=== PATIENT | female | born 1955 | race Caucasian/White ===

== ENCOUNTER 2024-05-27 22:41 | Emergency (ER) | payer MEDICARE, SELFPAY ==
[2024-05-27] VITALS (8 sets, daily range): BP systolic 171–201; BP diastolic 87–112; PULSE 61–77; RESP 18; TEMP 36.6; O2SAT 94–100; BMI 28.7
--- NOTE | 2024-05-27 22:46 | CT_ITS ---
PROCEDURE INFORMATION: Exam: CT Head Without Contrast Exam date and time: 05/27/2024 11:28 PM Age: 69 years old Clinical indication: Other: Tingling lt arm; Additional info: L arm tingling, now resolved, nih 0 no CVA HX TECHNIQUE: Imaging protocol: Computed tomography of the head without contrast. Radiation optimization: All CT scans at this facility use at least one of these dose optimization techniques: automated exposure control; mA and/or kV adjustment per patient size (includes targeted exams where dose is matched to clinical indication); or iterative reconstruction. COMPARISON: No relevant prior studies available. FINDINGS: Brain: Normal. No hemorrhage. Unremarkable white matter. No mass effect. Cerebral ventricles: No ventriculomegaly. Paranasal sinuses: Visualized sinuses are unremarkable. No fluid levels. Mastoid air cells: Visualized mastoid air cells are well aerated. Bones: Unremarkable. No acute fracture. Soft tissues: Unremarkable. IMPRESSION: No acute intracranial abnormality.
--- NOTE | 2024-05-27 22:46 | CT_ITS ---
PROCEDURE INFORMATION: Exam: CTA Head With Contrast, Arteriography Exam date and time: 05/27/2024 11:32 PM Age: 69 years old Clinical indication: Other: Lt arm tingling; Additional info: L arm tingling, now resolved, nih0 no CVA HX TECHNIQUE: Imaging protocol: Computed tomographic angiography of the head with contrast. Exam focused on the arteries. 3D rendering (Not supervised by radiologist): MIP and/or 3D reconstructed images were created by the technologist. Radiation optimization: All CT scans at this facility use at least one of these dose optimization techniques: automated exposure control; mA and/or kV adjustment per patient size (includes targeted exams where dose is matched to clinical indication); or iterative reconstruction. Contrast material: ISOVUE; Contrast volume: 80 ml; Contrast route: INTRAVENOUS (IV); COMPARISON: CT HEAD/BRAIN WO CON 05/27/2024 11:28 PM FINDINGS: ANTERIOR CIRCULATION: Right internal carotid artery: Intracranial segment is patent with no significant stenosis. No aneurysm. Right middle cerebral artery: No occlusion or significant stenosis. No aneurysm. Right anterior cerebral artery: No occlusion or significant stenosis. No aneurysm. Left internal carotid artery: Intracranial segment is patent with no significant stenosis. No aneurysm. Left middle cerebral artery: No occlusion or significant stenosis. No aneurysm. Left anterior cerebral artery: No occlusion or significant stenosis. No aneurysm. POSTERIOR CIRCULATION: Right vertebral artery: No occlusion or significant stenosis. No aneurysm. Left vertebral artery: No occlusion or significant stenosis. No aneurysm. Basilar artery: No occlusion or significant stenosis. No aneurysm. Right posterior cerebral artery: No occlusion or significant stenosis. No aneurysm. Left posterior cerebral artery: No occlusion or significant stenosis. No aneurysm. Brain: No definite mass, mass effect, or midline shift. Cerebral ventricles: No ventriculomegaly. Bones/joints: Unremarkable. No acute fracture. Soft tissues: Unremarkable. IMPRESSION: No large vessel stenosis or occlusion.
--- NOTE | 2024-05-27 22:46 | XR_ITS ---
PROCEDURE INFORMATION: Exam: XR Chest Exam date and time: 05/27/2024 11:29 PM Age: 69 years old Clinical indication: Other: Lt arm tingling; Additional info: L arm tingling, now resolved TECHNIQUE: Imaging protocol: Radiologic exam of the chest. Views: 1 view. COMPARISON: [facility] CTA-CHEST 06/19/2017 11:33 PM FINDINGS: Lungs: Unremarkable. No consolidation. Pleural spaces: Unremarkable. No pleural effusion. No pneumothorax. Heart/Mediastinum: Unremarkable. No cardiomegaly. Bones/joints: Mild degenerative changes of the spine and shoulders. No acute fracture. IMPRESSION: No acute disease
--- NOTE | 2024-05-27 22:46 | CT_ITS ---
PROCEDURE INFORMATION: Exam: CTA Neck With Contrast Exam date and time: 05/27/2024 11:32 PM Age: 69 years old Clinical indication: Other: Lt arm tingling; Additional info: L arm tingling nih 0 no CVA HX TECHNIQUE: Imaging protocol: Computed tomographic angiography of the neck with contrast. Exam focused on the cervical segments of the vasculature. 3D rendering (Not supervised by radiologist): MIP and/or 3D reconstructed images were created by the technologist. Radiation optimization: All CT scans at this facility use at least one of these dose optimization techniques: automated exposure control; mA and/or kV adjustment per patient size (includes targeted exams where dose is matched to clinical indication); or iterative reconstruction. Contrast material: ISOVUE; Contrast volume: 80 ml; Contrast route: INTRAVENOUS (IV); COMPARISON: CT ANGIO HEAD 05/27/2024 11:32 PM FINDINGS: Right common carotid artery: No stenosis. No dissection or occlusion. Right internal carotid artery: No stenosis of the extracranial segment. No dissection or occlusion. Right external carotid artery: No occlusion or stenosis of the origin. Left common carotid artery: No stenosis. No dissection or occlusion. Left internal carotid artery: No stenosis of the extracranial segment. No dissection or occlusion. Left external carotid artery: No occlusion or stenosis of the origin. Right vertebral artery: No stenosis. No dissection or occlusion. Left vertebral artery: No stenosis. No dissection or occlusion. Soft tissues: Normal. No significant soft tissue swelling. Bones/joints: No acute fracture. Mild multilevel degenerative changes noted throughout the cervical spine IMPRESSION: No stenosis or occlusion. REFERENCES: NASCET CRITERIA. The degree of stenosis in the cervical segment of the internal carotid artery is based on NASCET criteria. Normal is no stenosis. Mild is less than 50% stenosis. Moderate is 50-69% stenosis. Severe is 70% to 99% stenosis. Total occlusion is no detectable patent lumen.
--- NOTE | 2024-05-27 22:46 | ECG_ITS ---
APPROVED REPORT Exam: Resting ECG HR:67 bpm ECG Measurements Heart Rate 67 AXES TX 174 P 76 QRSd 84 QRS 71 QT 408 T 85 QTc 423 Conclusion SINUS RHYTHM NORMAL ECG Electronically signed by : BERNABE PORRAS, 05/27/2024 23:10:53
[2024-05-27 22:56] LABS: Basophils # 0.1 K/mm3 (0-0.2); Basophils % 1.3 % (0.1-2.0); Eosinophils # 0.3 K/mm3 (0.0-0.4); Eosinophils % 3.1 % (0.1-12.0); Hematocrit 43.6 % (37.0-47.0); Hemoglobin 14.4 g/dL (12.2-16.2); Lymphocytes # 2.6 K/mm3 (0.7-4.5); Mean Corpuscular Hemoglobin 30.9 pg (27.0-31.2); Mean Corpuscular Volume 93.6 fl (81-99); Mean Platelet Volume 8.4 fl (7.4-10.4); Monocytes # 0.4 K/mm3 (0.1-1.0); Monocytes % 5.2 % (1.7-9.3); Neutrophils % 59.4 % (37.0-80.0); Platelet Count 307 K/mm3 (142-424); Red Blood Count 4.65 M/mm3 (4.20-5.40); White Blood Count 8.4 K/mm3 (4.8-10.8)
[2024-05-27] MEDS: PROCHLORPERAZINE 10MG/2ML VIAL 10 MG IV (22:56)
[2024-05-27] MEDS: ACETAMINOPHEN 500MG TAB 1000 MG PO (22:56)
[2024-05-27] MEDS: DEXAMETHASONE 4MG/ML 1ML VIAL 8 MG IV (22:57)
[2024-05-27] MEDS: diphenhydrAMINE 50MG/ML VIAL 25 MG IV (22:57)
--- NOTE | 2024-05-27 22:59 | ED_ITS ---
Discharge Plan Disposition Patient Disposition: Xfer Short-Term Hosp Chief Complaint: Headache Referrals Follow up/Referrals: Provider,Referral, [Primary Care Provider] - See instructions Activity Restrictions/Add. Instructions Additional Instructions/Restrictions: Go directly to [facility], she will register through the ER as a direct admission to Dr. Ozuna. Do not make any stops along the way. Clinical Impressions Clinical Impression: Headache, Paresthesia of left arm, TIA (transient ischemic attack) Print Language Print Language: Romanian Discharge ED Provider: Narciso Quiroz General Adult HPI <Gretchen Ordoñez MD - Last Filed: 05/27/24 23:09> General Chief complaint: Headache Stated complaint: Left Sided Numbness and headache Time Seen by Provider: 05/27/24 22:46 Mode of Arrival: EMS Source of Information: Patient and EMS Limitations: No Limitations Description of Symptoms (Recalled from ER Triage Doc. by RN): Patient complains of headache and htn; states she had left arm numbness but it has subsided. Per MD NIH is 0 History of Present Illness HPI narrative: Patient is a 69-year-old female with past medical history hypertension for which she does not take any medications presenting with hypertension, headache and left arm numbness/tingling. She states that she was at her dinner table tonight reading and she had sudden onset left arm numbness and tingling. This lasted for about 5 minutes after which time it completely resolved. She denies any prior history of similar symptoms, no history of CVA or cardiac issues. She did call EMS who reports she was hemodynamically stable, no deficits noted by them but is hypertensive with systolics in the 200s. Blood glucose was 120 per EMS. Patient denies any chest pain, abdominal pain, nausea, vomiting, fevers, chills. She does not take any blood thinning medications but she did take aspirin earlier today for a headache. She has had this headache for 4 days and is not her worst headache, was gradual in onset, is in the posterior left head and she does have a history of migraines and this is consistent with her prior headaches. Related Data Allergies Allergy/AdvReac Type Severity Reaction Status Date / Time miconazole [From MONISTAT 7] Allergy Mild Unknown Verified 05/27/24 22:56 allergy reaction PFSH <Gretchen Ordoñez MD - Last Filed: 05/27/24 23:09> [facility] Disclaimer: The information contained in this section may have been updated after the patient was seen, as this information can be updated by other users. Social History (Updated 05/27/24 @ 23:09 by Gretchen Ordoñez MD) Smoking Status: Current every day smoker alcohol intake: never current occupational status: retired Travel in the last 8 weeks: None <Gretchen Ordoñez MD - Last Filed: 05/27/24 23:09> ROS Obtained: Yes Systems reviewed as appropriate & no additional complaints except as documented Physical Exam <Gretchen Ordoñez MD - Last Filed: 05/27/24 23:09> General General appearance: alert and in no apparent distress Head Head exam: atraumatic and normocephalic Eye Eye exam: Present PERRL and EOMI ENT ENT exam: Present mucous membranes moist Neck Neck exam: Present normal inspection Chest Chest inspection: Present normal inspection and symmetric chest wall rise Respiratory Respiratory exam: Present normal lung sounds bilaterally; Absent respiratory distress Cardiovascular Cardiovascular exam: Present regular rate and normal rhythm Abdominal Exam Abdominal exam: Present soft; Absent tenderness Extremities Exam Extremities exam: Present normal inspection Neurological Exam Neurological exam: Present alert, oriented X3, CN II-XII intact and other (Strength and sensation intact bilateral upper and lower extremities and bilateral face, alert and oriented, face is symmetric with equal smile, able to stick out tongue, raise eyebrows, close eyes, identify objects); Absent motor sensory deficit Psychiatric Psychiatric exam: Present normal affect Skin Skin exam: Present warm and dry Medical Decision Making <Gretchen Ordoñez MD - Last Filed: 05/27/24 23:09> Medical Records Medical records reviewed: Yes I reviewed the patient's medical records. Screening: Per USPSTF and CDC recommendations, given the prevalence of disease in our region, it is our hospital?s policy to screen for HIV and viral Hepatitis for all patients aged 18 and over and those with ongoing risk factors. Jg Inquiry Pt receiving controlled substance: No Vital Signs: 05/27/24 22:42 05/27/24 22:49 05/27/24 23:00 Temperature 97.9 F Temperature Source Oral Pulse Rate 71 72 Pulse Rate [Right Radial] 77 Respiratory Rate 18 Blood Pressure 181/92 H Blood Pressure [Right Arm] 201/112 H Blood Pressure Mean [Right Arm] 141 Blood Pressure Source Blood Pressure Source [Right Arm] Automatic Cuff Blood Pressure Position Blood Pressure Position [Right Arm] Supine 02 Sat by Pulse Oximetry 100 97 95 Oxygen Delivery Method Room Air 05/27/24 23:37 05/27/24 23:45 05/27/24 23:51 Temperature Temperature Source Pulse Rate 77 71 70 Pulse Rate [Right Radial] Respiratory Rate Blood Pressure 185/90 H Blood Pressure [Right Arm] Blood Pressure Mean [Right Arm] Blood Pressure Source Blood Pressure Source [Right Arm] Blood Pressure Position Blood Pressure Position [Right Arm] 02 Sat by Pulse Oximetry 95 96 94 L Oxygen Delivery Method 05/27/24 23:52 05/27/24 23:59 05/28/24 00:00 Temperature Temperature Source Pulse Rate 69 61 61 Pulse Rate [Right Radial] Respiratory Rate Blood Pressure 185/90 H 171/87 H 116/94 H Blood Pressure [Right Arm] Blood Pressure Mean [Right Arm] Blood Pressure Source Manual Cuff/ Doppler Blood Pressure Source [Right Arm] Blood Pressure Position Sitting Blood Pressure Position [Right Arm] 02 Sat by Pulse Oximetry 94 L 92 L Oxygen Delivery Method 05/28/24 00:30 05/28/24 00:40 Temperature Temperature Source Pulse Rate 67 65 Pulse Rate [Right Radial] Respiratory Rate Blood Pressure 175/83 H 175/83 H Blood Pressure [Right Arm] Blood Pressure Mean [Right Arm] Blood Pressure Source Automatic Cuff Blood Pressure Source [Right Arm] Blood Pressure Position Sitting Blood Pressure Position [Right Arm] 02 Sat by Pulse Oximetry 92 L 96 Oxygen Delivery Method Room Air Lab Data Lab results reviewed: Yes I reviewed the patient's lab results. Lab Results 05/27/24 22:42: WBC 8.4, RBC 4.65, Hgb 14.4, Hct 43.6, MCV 93.6, MCH 30.9, MCHC 33.0, RDW 15.0, Plt Count 307, MPV 8.4, Neut % (Auto) 59.4, Lymph % (Auto) 31.0, [place] % (Auto) 5.2, Eos % (Auto) 3.1, Baso % (Auto) 1.3, Neut # (Auto) 5.0, Lymph # (Auto) 2.6, [place] # (Auto) 0.4, Eos # (Auto) 0.3, Baso # (Auto) 0.1, PT 9.8 L, INR 0.86 L, APTT 24.4, Sodium 141, Potassium 4.0, Chloride 112 H, Carbon Dioxide 23, Anion Gap 10.0, BUN 16, Creatinine 1.00, Estimated Creat Clear 62, Estimated GFR 55 L, Est GFR ( Amer) 67, Glucose 103 H, Calcium 9.3, Total Bilirubin 0.7, AST 23, ALT 14, Alkaline Phosphatase 100, Troponin I < 0.01, Total Protein 7.6, Albumin 4.5, Globulin 3.1, Albumin/Globulin Ratio 1.5 05/27/24 22:42 05/27/24 22:42 Orders (Tests/Meds): ED MEDICATIONS Generic Name Dose Route Start Last Admin Trade Name Freq PRN Reason Stop Dose Admin Sodium Chloride 10 ml 05/27/24 23:40 05/27/24 23:41 Sodium Chloride 0.9% 10ml Syr (Rad Only) IV 06/26/24 23:39 10 ml NEEDED PRN Administration Maintain IV Site Discontinued Medications Generic Name Dose Route Start Last Admin Trade Name Freq PRN Reason Stop Dose Admin Acetaminophen 1,000 mg 05/27/24 22:46 05/27/24 22:56 Acetaminophen 500mg Tab PO 05/27/24 22:47 1,000 mg ONCE ONE Administration Aspirin 81 mg 05/28/24 00:58 05/28/24 01:10 Aspirin Ec 81mg Tablet PO 05/28/24 00:59 81 mg ONCE ONE Administration Clopidogrel Bisulfate 300 mg 05/28/24 00:58 05/28/24 01:09 Clopidogrel 300mg Tablet PO 05/28/24 00:59 300 mg ONCE ONE Administration Dexamethasone Sodium Phosphate 8 mg 05/27/24 22:46 05/27/24 22:57 Dexamethasone 4mg/Ml 1ml Vial IV 05/27/24 22:47 8 mg ONCE ONE Administration Diphenhydramine HCl 25 mg 05/27/24 22:46 05/27/24 22:57 Diphenhydramine 50mg/Ml Vial IV 05/27/24 22:47 25 mg ONCE ONE Administration Iopamidol 80 ml 05/27/24 23:40 05/27/24 23:41 Iopamidol-370 (76%);100ml Bottle IV 05/27/24 23:41 80 ml ONCE ONE Administration Labetalol HCl 10 mg 05/27/24 23:24 05/27/24 23:54 Labetalol 20mg/4ml Syringe IV 05/27/24 23:25 10 mg ONCE ONE Administration Prochlorperazine Edisylate 10 mg 05/27/24 22:46 05/27/24 22:56 Prochlorperazine 10mg/2ml Vial IV 05/27/24 22:47 10 mg ONCE ONE Administration Sodium Chloride 50 ml 05/27/24 23:40 05/27/24 23:41 0.9 % Sodium Chloride 50 Ml Vial IV 05/27/24 23:41 50 ml ONCE ONE Administration ORDERS Category Date Time Status CT angio head Stat Cat Scan 05/27/24 22:[address] angio neck Stat Cat Scan 05/27/24 22:[address] head/brain wo con Stat Cat Scan 05/27/24 22:46 Completed XR chest portable Stat Exams 05/27/24 22:46 Completed Activated Partial Thrombo Time Stat Lab 05/27/24 22:42 Completed Complete Blood Count Auto Diff Stat Lab 05/27/24 22:42 Completed Comprehensive Metabolic Panel Stat Lab 05/27/24 22:42 Completed HIV (1&2) Antibody Rapid Stat Lab 05/27/24 22:47 Received Hep C Ab with Reflex to RNA Stat Lab 05/27/24 22:47 Received Prothrombin Time INR Stat Lab 05/27/24 22:42 Completed Troponin I Stat Lab 05/27/24 22:42 Ordered ECG Data Tracing #1: I reviewed this ECG and interpreted as documented below: Per my interpretation EKG shows sinus rhythm at a rate of 67, normal intervals, no acute ischemia or infarction ECG initial impression date: 05/27/24 ECG initial impression time: 22:56 Medical Decision Narrative: Patient is a 69-year-old female with past medical history hypertension for which she does not take any medications presenting with left arm numbness and tingling onset prior to arrival lasting around 5 minutes in duration before completely subsiding. She was hypertensive en route for EMS to 200 systolic and blood glucose is within normal limits on arrival. She has no CVA history and is not on any blood thinning medications. Additionally no cardiac history. She did take aspirin earlier in the day for her headache symptoms but still does note a headache 4 out of 10, not worst headache of her life. She is GCS 15, NIH 0 on arrival. She is hypertensive to 200 systolic on arrival but otherwise hemodynamically stable. Will obtain labs and imaging for further evaluation. Notably recheck after 5 minutes patient's blood pressure was 181/92 without medication intervention and we will therefore defer given patient is naturally decreasing to desired 20%. EKG without acute ischemia or infarction, CBC nonactionable. Additional labs and CT imaging was ordered given concern for possible TIA symptoms versus cardiac etiology versus metabolic versus complicated migraine. Will give patient Tylenol, Benadryl, Compazine, Decadron for headache symptoms and restive labs and admitting pending and care of patient transition to Dr. Quiroz at time of signout <Narciso Quiroz MD - Last Filed: 05/28/24 01:39> Vital Signs: 05/27/24 22:42 05/27/24 22:49 05/27/24 23:00 Temperature 97.9 F Temperature Source Oral Pulse Rate 71 72 Pulse Rate [Right Radial] 77 Respiratory Rate 18 Blood Pressure 181/92 H Blood Pressure [Right Arm] 201/112 H Blood Pressure Mean [Right Arm] 141 Blood Pressure Source Blood Pressure Source [Right Arm] Automatic Cuff Blood Pressure Position Blood Pressure Position [Right Arm] Supine 02 Sat by Pulse Oximetry 100 97 95 Oxygen Delivery Method Room Air 05/27/24 23:37 05/27/24 23:45 05/27/24 23:51 Temperature Temperature Source Pulse Rate 77 71 70 Pulse Rate [Right Radial] Respiratory Rate Blood Pressure 185/90 H Blood Pressure [Right Arm] Blood Pressure Mean [Right Arm] Blood Pressure Source Blood Pressure Source [Right Arm] Blood Pressure Position Blood Pressure Position [Right Arm] 02 Sat by Pulse Oximetry 95 96 94 L Oxygen Delivery Method 05/27/24 23:52 05/27/24 23:59 05/28/24 00:00 Temperature Temperature Source Pulse Rate 69 61 61 Pulse Rate [Right Radial] Respiratory Rate Blood Pressure 185/90 H 171/87 H 116/94 H Blood Pressure [Right Arm] Blood Pressure Mean [Right Arm] Blood Pressure Source Manual Cuff/ Doppler Blood Pressure Source [Right Arm] Blood Pressure Position Sitting Blood Pressure Position [Right Arm] 02 Sat by Pulse Oximetry 94 L 92 L Oxygen Delivery Method 05/28/24 00:30 05/28/24 00:40 Temperature Temperature Source Pulse Rate 67 65 Pulse Rate [Right Radial] Respiratory Rate Blood Pressure 175/83 H 175/83 H Blood Pressure [Right Arm] Blood Pressure Mean [Right Arm] Blood Pressure Source Automatic Cuff Blood Pressure Source [Right Arm] Blood Pressure Position Sitting Blood Pressure Position [Right Arm] 02 Sat by Pulse Oximetry 92 L 96 Oxygen Delivery Method Room Air Lab Data Lab Results 05/27/24 22:42: WBC 8.4, RBC 4.65, Hgb 14.4, Hct 43.6, MCV 93.6, MCH 30.9, MCHC 33.0, RDW 15.0, Plt Count 307, MPV 8.4, Neut % (Auto) 59.4, Lymph % (Auto) 31.0, [place] % (Auto) 5.2, Eos % (Auto) 3.1, Baso % (Auto) 1.3, Neut # (Auto) 5.0, Lymph # (Auto) 2.6, [place] # (Auto) 0.4, Eos # (Auto) 0.3, Baso # (Auto) 0.1, PT 9.8 L, INR 0.86 L, APTT 24.4, Sodium 141, Potassium 4.0, Chloride 112 H, Carbon Dioxide 23, Anion Gap 10.0, BUN 16, Creatinine 1.00, Estimated Creat Clear 62, Estimated GFR 55 L, Est GFR ( Amer) 67, Glucose 103 H, Calcium 9.3, Total Bilirubin 0.7, AST 23, ALT 14, Alkaline Phosphatase 100, Troponin I < 0.01, Total Protein 7.6, Albumin 4.5, Globulin 3.1, Albumin/Globulin Ratio 1.5 Orders (Tests/Meds): ED MEDICATIONS Generic Name Dose Route Start Last Admin Trade Name Freq PRN Reason Stop Dose Admin Sodium Chloride 10 ml 05/27/24 23:40 05/27/24 23:41 Sodium Chloride 0.9% 10ml Syr (Rad Only) IV 06/26/24 23:39 10 ml NEEDED PRN Administration Maintain IV Site Discontinued Medications Generic Name Dose Route Start Last Admin Trade Name Freq PRN Reason Stop Dose Admin Acetaminophen 1,000 mg 05/27/24 22:46 05/27/24 22:56 Acetaminophen 500mg Tab PO 05/27/24 22:47 1,000 mg ONCE ONE Administration Aspirin 81 mg 05/28/24 00:58 05/28/24 01:10 Aspirin Ec 81mg Tablet PO 05/28/24 00:59 81 mg ONCE ONE Administration Clopidogrel Bisulfate 300 mg 05/28/24 00:58 05/28/24 01:09 Clopidogrel 300mg Tablet PO 05/28/24 00:59 300 mg ONCE ONE Administration Dexamethasone Sodium Phosphate 8 mg 05/27/24 22:46 05/27/24 22:57 Dexamethasone 4mg/Ml 1ml Vial IV 05/27/24 22:47 8 mg ONCE ONE Administration Diphenhydramine HCl 25 mg 05/27/24 22:46 05/27/24 22:57 Diphenhydramine 50mg/Ml Vial IV 05/27/24 22:47 25 mg ONCE ONE Administration Iopamidol 80 ml 05/27/24 23:40 05/27/24 23:41 Iopamidol-370 (76%);100ml Bottle IV 05/27/24 23:41 80 ml ONCE ONE Administration Labetalol HCl 10 mg 05/27/24 23:24 05/27/24 23:54 Labetalol 20mg/4ml Syringe IV 05/27/24 23:25 10 mg ONCE ONE Administration Prochlorperazine Edisylate 10 mg 05/27/24 22:46 05/27/24 22:56 Prochlorperazine 10mg/2ml Vial IV 05/27/24 22:47 10 mg ONCE ONE Administration Sodium Chloride 50 ml 05/27/24 23:40 05/27/24 23:41 0.9 % Sodium Chloride 50 Ml Vial IV 05/27/24 23:41 50 ml ONCE ONE Administration ORDERS Category Date Time Status CT angio head Stat Cat Scan 05/27/24 22:[address] angio neck Stat Cat Scan 05/27/24 22:[address] head/brain wo con Stat Cat Scan 05/27/24 22:46 Completed XR chest portable Stat Exams 05/27/24 22:46 Completed Activated Partial Thrombo Time Stat Lab 05/27/24 22:42 Completed Complete Blood Count Auto Diff Stat Lab 05/27/24 22:42 Completed Comprehensive Metabolic Panel Stat Lab 05/27/24 22:42 Completed HIV (1&2) Antibody Rapid Stat Lab 05/27/24 22:47 Received Hep C Ab with Reflex to RNA Stat Lab 05/27/24 22:47 Received Prothrombin Time INR Stat Lab 05/27/24 22:42 Completed Troponin I Stat Lab 05/27/24 22:42 Ordered Medical Decision Narrative: Patient is a 69-year-old female with past medical history hypertension for which she does not take any medications presenting with left arm numbness and tingling onset prior to arrival lasting around 5 minutes in duration before completely subsiding. She was hypertensive en route for EMS to 200 systolic and blood glucose is within normal limits on arrival. She has no CVA history and is not on any blood thinning medications. Additionally no cardiac history. She did take aspirin earlier in the day for her headache symptoms but still does note a headache 4 out of 10, not worst headache of her life. She is GCS 15, NIH 0 on arrival. She is hypertensive to 200 systolic on arrival but otherwise hemodynamically stable. Will obtain labs and imaging for further evaluation. Notably recheck after 5 minutes patient's blood pressure was 181/92 without medication intervention and we will therefore defer given patient is naturally decreasing to desired 20%. EKG without acute ischemia or infarction, CBC nonactionable. Additional labs and CT imaging was ordered given concern for possible TIA symptoms versus cardiac etiology versus metabolic versus complicated migraine. Will give patient Tylenol, Benadryl, Compazine, Decadron for headache symptoms and restive labs and admitting pending and care of patient transition to Dr. Quiroz at time of signout Quiroz: Upon my assumption of care patient is stable. She is very hypertensive, I administered labetalol for hypertension management because she continued to be in the 180s to 190s. She responded well to this medication. Patient states her symptoms of headache have resolved. CT imaging results are pending but on my personal interpretation I do not appreciate acute intracranial abnormality, no large vessel occlusion. Radiology reads resulted and are in agreement. I do have concerns for patient having TIA. She has not seen a doctor in nearly a decade and has been very hypertensive in the ER. It is possible that this is an atypical migraine, however her ABCD 2 score is 4 which is moderate risk and patient has 10% chance of stroke in the next 90 days. I discussed this patient with the hospitalist who indicated she cannot be admitted to our facility at this time for MRI because we do not have MRI available over the weekend. I discussed this with the patient indicating I would like to have the patient transferred for MRI and neurology evaluation. Patient states she refuses transfer at this time, she is able to explain to me the risks including but not limited to possibility of having a stroke which could cause permanent disability or . Since patient would like to be discharged, I am going to consult neurology at another facility for close outpatient follow-up. [facility] was contacted. Initially they accidentally connected me with the neurosurgeon, we are currently reattempting to get in touch with the neurologist. I spoke with neurology sales and catering coordinator, Laura, at [facility]. After discussing patient's symptoms, workup, and ABCD2 score, she recommends transfer to [facility] [place] for TIA workup including MRI and Echo. She strongly recommends this and stated if patient will not transfer to have her sign out AMA. She did recommend permissive HTN with blood pressure as high as 220 as long as patient remains asymptomtic, ASA 81mg and 300mg loading dose of Plavix. Patient received these medications. I discussed recommendations with patient and her son at bedside. After long discussion with patient and son, she ultimately agreed to be transferred. I called [facility] [place] back and notified them of this change. I spoke with Laura and Dr. Ozuna. Ultimately after full discussion, patient is accepted for direct admission to the hospitalist service on telemetry. We have extremely limited resources at this time for transportation. I discussed with Dr. Ozuna that patient is within the recommended hemodynamic parameters from neurology, hemodynamically stable, GCS 15, completely asymptomatic at this time from any of the complaints which brought her in earlier. He stated he is okay with patient coming by private vehicle. Patient's son Keenan at bedside stated he will be the one driving the patient directly from our ER to [facility]. He understands he is not to make any stops along the way and is to go directly there. I believe given the circumstances patient is appropriate for transfer via POV. Patient's IV was removed. All instructions were again repeated to the patient and her son, Keenan. Patient was transferred in stable condition. Critical Care <Gretchen Ordoñez MD - Last Filed: 05/27/24 23:09> Critical Care Time Critical Care Time: No
[2024-05-27 23:03] LABS: Alanine Aminotransferase 14 U/L (12-78); Albumin Level 4.5 g/dl (3.5-5.0); Albumin/Globulin Ratio 1.5 (1.1-1.8); Alkaline Phosphatase 100 U/L (38-126); Aspartate Amino Transferase 23 U/L (14-36); Bilirubin,Total 0.7 mg/dl (0.2-1.3); Blood Urea Nitrogen 16 mg/dl (7-17); Calcium 9.3 mg/dl (8.4-10.2); Carbon Dioxide 23 mmol/L (22.0-30.0); Chloride 112 mmol/L (98-107); Creatinine Clearance Estimated 62 mL/min (50-200); Estimated Glomerular Filt Rate 55 ml/min (>60); GFR (African American) 67 ML/MIN (>60); Globulin 3.1 g/dL (1.3-3.2); Glucose 103 mg/dl (74-100); Sodium 141 mmol/L (136-145); Total Protein,Serum 7.6 g/dl (6.3-8.2)
[2024-05-27 23:05] LABS: Activated Partial Thrombo Time 24.4 seconds (22.8-30.6); INR 0.86 (0.9-1.1); Prothrombin Time 9.8 seconds (10.1-12.5)
[2024-05-27 23:17] LABS: Troponin I < 0.01 ng/ml (0.00-0.034)
--- NOTE | 2024-05-27 23:23 | PC.NURSE ---
patient to CT
[2024-05-27] MEDS: SODIUM CHLORIDE 0.9% 10ML SYR (RAD ONLY) 10 ML IV (23:41)
[2024-05-27] MEDS: IOPAMIDOL-370 (76%);100ML BOTTLE 80 ML IV (23:41)
[2024-05-27] MEDS: 0.9 % SODIUM CHLORIDE 50 ML VIAL IV (23:41)
[2024-05-27] MEDS: LABETALOL 20MG/4ML SYRINGE 10 MG IV (23:54)
[2024-05-28] VITALS: BP 116/94; PULSE 61; O2SAT 92
--- NOTE | 2024-05-28 00:29 | PC.NURSE ---
ED doctor on phone with Dr. Black
[2024-05-28 00:30] VITALS: BP 175/83; PULSE 67; O2SAT 92
[2024-05-28 00:40] VITALS: BP 175/83; PULSE 65; O2SAT 96
[2024-05-28 00:45] VITALS: PULSE 69; O2SAT 96
[2024-05-28] MEDS: CLOPIDOGREL 300MG TABLET 300 MG PO (01:09)
[2024-05-28] MEDS: ASPIRIN EC 81MG TABLET 81 MG PO (01:10)
[2024-05-28 02:15] VITALS: BP 178/111; PULSE 73; O2SAT 93
[2024-05-28 02:22] LABS: HIV (1&2) Antibody Rapid NONREACTIVE (NONREACTIVE)
[2024-05-28 02:29] VITALS: BP 178/111; PULSE 80; RESP 18; TEMP 36.6; O2SAT 98
[2024-05-30 05:10] LABS: HCV Ab Non Reactive (Non Reactive)
== END 2024-05-28 02:32 | disposition short-term general hospital (02) ==
PROVIDERS: Emergency Medicine; Emergency Provider Emergency Medicine
DX: G45.9 Transient cerebral ischemic attack, unspecified (principal); R20.2 Paresthesia of skin; R51.9 Headache, unspecified; I10 Essential (primary) hypertension
CPT/HCPCS: 70450; 70496; 70498; 71045; 80053; 84484; 85025; 85610; 85730; 86803; 87389; 93005; 96374; 96375; 99285; J0780; J1100; J1200; J1920; Q9967

== ENCOUNTER 2024-06-26 10:32 | Emergency (ER) | payer MEDICARE, MEDICAID, SELFPAY ==
[2024-06-26 10:33] VITALS: BP 176/76; PULSE 82; RESP 18; TEMP 36.7; O2SAT 95; BMI 29.4
--- NOTE | 2024-06-26 10:50 | ECG_ITS ---
APPROVED REPORT Exam: Resting ECG HR:76 bpm ECG Measurements Heart Rate 76 AXES DE 182 P 83 QRSd 88 QRS 40 QT 373 T 75 QTc 403 Conclusion SINUS RHYTHM WITH SINUS ARRHYTHMIA NONSPECIFIC T-WAVE ABNORMALITY BORDERLINE ECG UNCONFIRMED REPORT Electronically signed by : Brant Romeo, 06/30/2024 23:25:01
[2024-06-26 11:00] VITALS: BP 173/91; PULSE 78; O2SAT 94
--- NOTE | 2024-06-26 11:08 | ED_ITS ---
Discharge Plan Disposition Patient Disposition: Home, Self-Care Prescriptions Prescriptions: No Action aspirin [Children's Aspirin] 81 mg tablet,chewable 81 mg PO DAILY Patient Comments: CHEW AND SWALLOW 1 TABLET BY MOUTH ONCE DAILY magnesium oxide 400 mg (241.3 mg magnesium) tablet 400 mg PO HS Patient Comments: TAKE 1 TABLET BY MOUTH ONCE DAILY AT NIGHT amlodipine 5 mg tablet 5 mg PO DAILY Patient Comments: TAKE 1 TABLET BY MOUTH ONCE DAILY atorvastatin 80 mg tablet 80 mg PO HS Patient Comments: TAKE 1 TABLET BY MOUTH ONCE DAILY AT NIGHT riboflavin (vitamin B2) 400 mg tablet 400 mg PO DAILY Referrals Follow up/Referrals: Provider,Referral, MD [Primary Care Provider] - See instructions Activity Restrictions/Add. Instructions Additional Instructions/Restrictions: As discussed your serial neurologic exam specifically from a sensory standpoint were normal even in the midst of one of the episodes that you had. This included position temperature and light touch and pain in the median ulnar radial and axillary distribution. Your blood vessels were also normal all of this suggest that this is not a neurovascular emergency. Given the fact that you had symptoms radiating from your neck down through your arm and symptoms that I would call paresthesias I suggest to get a cervical MRI as this is likely cervical radiculopathy. Also given the fact that she had extensive restratification at [facility] recently further TIA evaluation at this point would not be helpful or additive. Please continue to take your medications prescribed by them and return with any true sensory loss or motor weakness such as paralysis of your arm. Otherwise recommend you follow-up with neurology with [facility] as well as your primary care doctor. Clinical Impressions Clinical Impression: Paresthesia of left arm Print Language Print Language: Libyan Discharge ED Provider: Kaitlin Romeo General Adult HPI General Chief complaint: Weakness Stated complaint: Weakness Time Seen by Provider: 06/26/24 10:58 Mode of Arrival: EMS Source of Information: Patient Limitations: No Limitations Description of Symptoms (Recalled from ER Triage Doc. by RN): Patient reports that around 950 am she began to have numbness and tingling in her left hand that began to radiate up her arm. States she has had TIAs in the past and was just concerned that it was happening again. History of Present Illness HPI narrative: Patient is a 69-year-old female presenting today with left arm paresthesias and tingling that radiated upper into her arm. No motor weakness. She states she had a previous episode that was similar to this when she was holding a phone for prolonged period of time ultimately had CT angiography and was sent to [facility] for TIA workup. She had an MRI and an echo and had right further restratification including medications that she was initiated on including blood pressure medication and antiplatelet agents. She follow-up with her primary care doctor who believes that this was not a TIA. She denies any significant neck pain. She currently is asymptomatic. Related Data Home Medications ?Medication ?Instructions ?Recorded ?Confirmed amlodipine 5 mg tablet 5 mg PO DAILY 06/07/24 06/07/24 aspirin 81 mg chewable tablet 81 mg PO DAILY 06/07/24 06/07/24 (Children's Aspirin) atorvastatin 80 mg tablet 80 mg PO HS 06/07/24 06/07/24 magnesium oxide 400 mg (241.3 mg 400 mg PO HS 06/07/24 06/07/24 magnesium) tablet riboflavin (vitamin B2) 400 mg 400 mg PO DAILY 06/07/24 06/07/24 tablet Allergies Allergy/AdvReac Type Severity Reaction Status Date / Time miconazole (From [facility]AT 7) Allergy Mild Unknown Verified 06/07/24 14:00 allergy reaction [facility] Disclaimer: The information contained in this section may have been updated after the patient was seen, as this information can be updated by other users. Medical History (Updated 06/26/24 @ 11:11 by Kaitlin Romeo MD) Low serum vitamin B2 Migraines Low magnesium level Hyperlipidemia Hypertension Surgical History (Updated 06/07/24 @ 14:03 by Gabbie Ramos MA) Tubal ligation status H/O skin graft Social History (Updated 05/27/24 @ 23:09 by Gretchen Ordoñez MD) Smoking Status: Current every day smoker alcohol intake: never current occupational status: retired Other Medical History Have you received the Pneumonia Vaccine: No ROS Obtained: Yes All systems reviewed & no additional complaints except as documented Physical Exam General General appearance: alert and in no apparent distress Respiratory Respiratory exam: Present normal lung sounds bilaterally Cardiovascular Cardiovascular exam: Present regular rate, normal rhythm and other (Normal peripheral pulses) Neurological Exam Neurological exam: Present alert, oriented X3, CN II-XII intact, normal gait and other (Median ulnar radial and axillary motor and sensory exam left upper extremity normal in addition normal pulse); Absent motor sensory deficit Medical Decision Making Medical Records Screening: Per USPSTF and CDC recommendations, given the prevalence of disease in our region, it is our hospital?s policy to screen for HIV and viral Hepatitis for all patients aged 18 and over and those with ongoing risk factors. Jg Inquiry Pt receiving controlled substance: No Vital Signs: 06/26/24 10:33 06/26/24 11:00 Temperature 98.1 F Temperature Source Oral Pulse Rate 78 Pulse Rate [Radial] 82 Respiratory Rate 18 Blood Pressure 173/91 H Blood Pressure [Right Arm] 176/76 H Blood Pressure Mean [Right Arm] 109 Blood Pressure Source [Right Arm] Automatic Cuff Blood Pressure Position [Right Arm] Sitting 02 Sat by Pulse Oximetry 95 94 L Oxygen Delivery Method Room Air Room Air Lab Data Lab results reviewed: Yes I reviewed the patient's lab results. Lab Results 06/26/24 10:15: WBC 7.9, RBC 4.47, Hgb 14.1, Hct 42.3, MCV 94.8, MCH 31.5 H, MCHC 33.3, RDW 15.5, Plt Count 342, MPV 8.4, Neut % (Auto) 71.2, Lymph % (Auto) 15.8, [place] % (Auto) 7.5, Eos % (Auto) 4.4, Baso % (Auto) 1.1, Neut # (Auto) 5.6, Lymph # (Auto) 1.3, [place] # (Auto) 0.6, Eos # (Auto) 0.3, Baso # (Auto) 0.1, Sodium 140, Potassium 4.7, Chloride 111 H, Carbon Dioxide 20 L, Anion Gap 13.7, BUN 17, Creatinine 1.00, Estimated Creat Clear 63, Estimated GFR 55 L, Est GFR ( Amer) 67, Glucose 119 H, Calcium 9.5, Phosphorus 3.4, Magnesium 2.3, Total Bilirubin 1.0, AST 48 H, ALT 33, Alkaline Phosphatase 108, Troponin I < 0.01, Total Protein 8.1, Albumin 4.7, Globulin 3.4 H, Albumin/Globulin Ratio 1.4 06/26/24 10:15 06/26/24 10:15 Orders (Tests/Meds): ORDERS Category Date Time Status CBC w/Auto Diff [Complete Blood Count Auto Diff] Stat Lab 11/25/24 10:15 Completed CMP [Comprehensive Metabolic Panel] Stat Lab 06/26/24 10:15 Completed Magnesium Stat Lab 06/26/24 10:15 Completed Phosphorous Stat Lab 06/26/24 10:15 Completed Trop I [Troponin I] Stat Lab 06/26/24 10:15 Completed Troponin I Q3H Lab 06/26/24 14:15 Ordered Troponin I Q3H Lab 06/26/24 17:15 Ordered Medical Decision Narrative: 69-year-old with objectively normal exam who presents today with paresthesias in her left upper extremity. She had no true sensory loss or motor weakness this is not consistent with a TIA my assessment and she also recently had extensive restratification including angiography echo medications etc. I do not feel within normal exam right now that further imaging would be useful and she has already been maximally stratified and she understands this and no further interventions I think would change the neurologic outcome in the future. Her exam and history seem to be intermittent paresthesias in the left upper extremity possibly from cervical radiculopathy. I recommended that she get an outpatient MRI of her cervical spine. From an arterial and vascular standpoint her exam is completely normal with good perfusion I do not suspect any significant upper extremity arterial insufficiency. Will get basic blood work to rule out any other cause of paresthesias and then will recommend that she follow with her primary care doctor to get an outpatient MRI of her cervical spine. Patient had another episode at 11:34 PM I examined her in the middle of this episode her pulses were normal. Objectively she stated that she was having some numbness in the fourth and fifth digit however she had normal pain temperature and position sense and normal liver function and middle of this episode. She was hyperventilating a little bit in the middle of this and when she calm down her symptoms started to improve. It is possible that this is hyperventilation causing some transient electrolyte abnormalities. Will reassess again shortly. However this does not appear to be consistent with a neurovascular emergency. reassessment 1235 serial neurologic exams still remain normal. No loss of sensation and motor exam remains normal. An extensive discussion with her regarding what this is not and this is not consistent with a TIA or stroke acute neurologic abnormality vascular emergency etc. Her symptoms are paresthesias that are subjective and her objective neurologic exam has remained normal for me on serial assessments. Additionally she has had extensive workup at [facility] and further evaluation from the standpoint would not be helpful with a normal exam right now. She has been advised to stay on the medication as prescribed follow- up with neurology and also her primary care doctor. She has had some radiating symptoms from her neck down through her hand which she describes as [id number] and like my hand is about to fall asleep. The suggest that this may be cervical radiculopathy causing these symptoms and I recommend a cervical spine MRI. Overall she is comfortable going home and understands that there is no further emergent diagnosis or treatment needed at the moment. She was discharged in stable condition. Critical Care Critical Care Time Critical Care Time: No
[2024-06-26 11:22] LABS: Alanine Aminotransferase 33 U/L (12-78); Albumin Level 4.7 g/dl (3.5-5.0); Albumin/Globulin Ratio 1.4 (1.1-1.8); Alkaline Phosphatase 108 U/L (38-126); Anion Gap 13.7 mEq/L (5-15); Aspartate Amino Transferase 48 U/L (14-36); Blood Urea Nitrogen 17 mg/dl (7-17); Calcium 9.5 mg/dl (8.4-10.2); Carbon Dioxide 20 mmol/L (22.0-30.0); Chloride 111 mmol/L (98-107); Creatinine Clearance Estimated 63 mL/min (50-200); Estimated Glomerular Filt Rate 55 ml/min (>60); GFR (African American) 67 ML/MIN (>60); Globulin 3.4 g/dL (1.3-3.2); Glucose 119 mg/dl (74-100); Magnesium 2.3 mg/dl (1.6-2.3); Phosphorous 3.4 mg/dl (2.5-4.5); Potassium 4.7 mmoL/L (3.5-5.1); Sodium 140 mmol/L (136-145); Total Protein,Serum 8.1 g/dl (6.3-8.2)
[2024-06-26 11:24] LABS: Basophils # 0.1 K/mm3 (0-0.2); Basophils % 1.1 % (0.1-2.0); Eosinophils # 0.3 K/mm3 (0.0-0.4); Eosinophils % 4.4 % (0.1-12.0); Hematocrit 42.3 % (37.0-47.0); Hemoglobin 14.1 g/dL (12.2-16.2); Lymphocytes # 1.3 K/mm3 (0.7-4.5); Lymphocytes % 15.8 % (10-50); Mean Corpuscular HGB Conc 33.3 g/dL (31.8-35.4); Mean Corpuscular Hemoglobin 31.5 pg (27.0-31.2); Mean Corpuscular Volume 94.8 fl (81-99); Mean Platelet Volume 8.4 fl (7.4-10.4); Monocytes # 0.6 K/mm3 (0.1-1.0); Monocytes % 7.5 % (1.7-9.3); Neutrophils # 5.6 K/mm3 (1.8-7.8); Neutrophils % 71.2 % (37.0-80.0); Platelet Count 342 K/mm3 (142-424); Red Blood Count 4.47 M/mm3 (4.20-5.40); Red Cell Distribution Width 15.5 % (11.5-17.5); White Blood Count 7.9 K/mm3 (4.8-10.8)
[2024-06-26 11:34] LABS: Troponin I < 0.01 ng/ml (0.00-0.034)
[2024-06-26 12:51] VITALS: BP 170/90; PULSE 80; RESP 20; TEMP 36.7; O2SAT 96
== END 2024-06-26 13:08 | disposition home or self-care (01) ==
PROVIDERS: Emergency Provider Student in an Organized Health Care Education/Training Program
DX: R20.2 Paresthesia of skin (principal); R53.1 Weakness
CPT/HCPCS: 80053; 83735; 84100; 84484; 85025; 93005; 99283

== ENCOUNTER 2024-07-10 12:52 | Emergency (ER) | payer MEDICARE, MEDICAID, SELFPAY ==
[2024-07-10] VITALS (14 sets, daily range): BP systolic 145–184; BP diastolic 79–101; PULSE 69–83; RESP 16–18; TEMP 36.5–36.6; O2SAT 94–99; BMI 29.4
--- NOTE | 2024-07-10 13:27 | CT_ITS ---
PROCEDURE INFORMATION: Exam: CT Cervical Spine Without Contrast Exam date and time: 07/10/2024 1:40 PM Age: 69 years old Clinical indication: Injury or trauma; Fall; Blunt trauma TECHNIQUE: Imaging protocol: Computed tomography of the cervical spine without contrast. Radiation optimization: All CT scans at this facility use at least one of these dose optimization techniques: automated exposure control; mA and/or kV adjustment per patient size (includes targeted exams where dose is matched to clinical indication); or iterative reconstruction. COMPARISON: CT ANGIO NECK 05/27/2024 11:32 PM FINDINGS: Bones: No acute fracture. Normal alignment. No significant disc bulge or herniation. No severe spinal canal stenosis. No significant neural foraminal narrowing. Mild disc space narrowing and small osteophytes at C5-C6. Lungs: Lung apices are normal. Soft tissues: No paraspinal or prevertebral soft tissue masses. IMPRESSION: No acute findings in the cervical spine.
--- NOTE | 2024-07-10 13:27 | CT_ITS ---
PROCEDURE INFORMATION: Exam: CT Head Without Contrast Exam date and time: 07/10/2024 1:40 PM Age: 69 years old Clinical indication: Injury or trauma; Fall; Blunt trauma (contusions or hematomas); Additional info: Fall, head trauma TECHNIQUE: Imaging protocol: Computed tomography of the head without contrast. Radiation optimization: All CT scans at this facility use at least one of these dose optimization techniques: automated exposure control; mA and/or kV adjustment per patient size (includes targeted exams where dose is matched to clinical indication); or iterative reconstruction. COMPARISON: CT HEAD/BRAIN WO CON 07/10/2024 1:40 PM FINDINGS: Brain: Focal hypodensity in the white matter of the posterior right temporoparietal region is an interval change. No intracranial hemorrhages. Cerebral ventricles: No ventriculomegaly. Paranasal sinuses: Visualized sinuses are well aerated. No fluid levels. Mastoid air cells: Visualized mastoid air cells are well aerated. Bones: No acute fractures or bone lesions. Soft tissues: No abnormalities. IMPRESSION: Focal hypodensity in the white matter of the right temporoparietal region measures 26 mm in diameter and is an interval change since 05/27/2024. Consider interval infarction or perhaps vasogenic edema from infection or small neoplasm. MRI of the brain without and with contrast is recommended.
--- NOTE | 2024-07-10 13:30 | HMH.EDGENADL ---
Discharge Plan Disposition Patient Disposition: Xfer Short-Term Hosp Condition: Fair Prescriptions Prescriptions: No Action aspirin [Children's Aspirin] 81 mg tablet,chewable 81 mg PO DAILY Patient Comments: CHEW AND SWALLOW 1 TABLET BY MOUTH ONCE DAILY magnesium oxide 400 mg (241.3 mg magnesium) tablet 400 mg PO HS Patient Comments: TAKE 1 TABLET BY MOUTH ONCE DAILY AT NIGHT amlodipine 5 mg tablet 5 mg PO DAILY Patient Comments: TAKE 1 TABLET BY MOUTH ONCE DAILY atorvastatin 80 mg tablet 80 mg PO HS Patient Comments: TAKE 1 TABLET BY MOUTH ONCE DAILY AT NIGHT riboflavin (vitamin B2) 400 mg tablet 400 mg PO DAILY Referrals Follow up/Referrals: Provider,Referral, MD [Referring] - See instructions Clinical Impressions Clinical Impression: Headache, Paresthesia of left arm Stand Alone Forms Stand Alone Forms: Transfer Record - ED Print Language Print Language: Mozambican Discharge ED Provider: Michel Wong General Adult HPI <TJ Castro - Last Filed: 07/10/24 18:55> General Chief complaint: Weakness Stated complaint: Paresthesia Time Seen by Provider: 07/10/24 13:06 Mode of Arrival: EMS Source of Information: Patient and EMS Limitations: No Limitations Description of Symptoms (Recalled from ER Triage Doc. by RN): pt states she is having tingling in her L arm, BLE, tongue, lips and neck. pt states this has been ongoing x1 month and it started randomly while sitting at her kitchen table. pt reports the last 2-3d the tingling has worsened. pt was seen here last wk for the same concern and has also had CT's and MRI's at [facility], [place], operated by [facility]. History of Present Illness HPI narrative: 69-year-old female presents the emergency department via EMS for some paresthesias left arm that started in her fingertips and go all the way up the arm into the left side of the face, then down her leg into her leg into toes, this is going on for the last week. Had similar complaint was seen in the emergency department back in June as well as May 2024 was diagnosed with a TIA , at [facility] had neuroimaging studies performed include MRI of the brain and CTAs all of which were negative for acute CVA. Thought to be some component of cervical radiculopathy to her symptomatology, however she denies any neck pain, admits to some neck discomfort, was placed on aspirin, hypertensives and statin medication neurology after first episode in May she has been taking the medications as prescribed, she is a current everyday smoker, denies any other medical history, takes no other medications at home except for vitamin B as well as magnesium, being seen by neurology for possible complex migraine, she endorses a dull headache around 2 out of 10 in pain currently, she is unsure if these attributed to her numbness and tingling/paresthesias. She denies any fever chills chest pain shortness of breath, denies any upper or lower extremity weakness, denies urinary bladder or bowel dysfunction, dizziness, denies any abdominal pain, constipation diarrhea. Initial triage vitals are unremarkable. Onset (ago): week(s) Related Data Home Medications ?Medication ?Instructions ?Recorded ?Confirmed amlodipine 5 mg tablet 5 mg PO DAILY 06/07/24 06/07/24 aspirin 81 mg chewable tablet 81 mg PO DAILY 06/07/24 06/07/24 (Children's Aspirin) atorvastatin 80 mg tablet 80 mg PO HS 06/07/24 06/07/24 magnesium oxide 400 mg (241.3 mg 400 mg PO HS 06/07/24 06/07/24 magnesium) tablet riboflavin (vitamin B2) 400 mg 400 mg PO DAILY 06/07/24 06/07/24 tablet Allergies Allergy/AdvReac Type Severity Reaction Status Date / Time miconazole (From MONISTAT 7) Allergy Mild Unknown Verified 06/07/24 14:00 allergy reaction [facility] <TJ Castro - Last Filed: 07/10/24 18:55> [facility] Disclaimer: The information contained in this section may have been updated after the patient was seen, as this information can be updated by other users. Medical History (Updated 07/10/24 @ 18:55 by TJ Castro) Low serum vitamin B2 Migraines Low magnesium level Hyperlipidemia Hypertension Surgical History (Updated 06/07/24 @ 14:03 by Gabbie Ramos MA) Tubal ligation status H/O skin graft Social History (Updated 06/26/24 @ 12:37 by Kaitlin Romeo MD) Smoking Status: Current every day smoker alcohol intake: never current occupational status: retired Travel in the last 8 weeks: None Other Medical History Have you received the Pneumonia Vaccine: No <TJ Castro - Last Filed: 07/10/24 18:55> ROS Obtained: Yes All systems reviewed & no additional complaints except as documented Physical Exam <TJ Castro - Last Filed: 07/10/24 18:55> General General appearance: alert and in no apparent distress Head Head exam: atraumatic and normocephalic Eye Eye exam: Present PERRL and EOMI ENT ENT exam: Present mucous membranes moist Neck Neck exam: Present normal inspection Chest Chest inspection: Present normal inspection and symmetric chest wall rise Respiratory Respiratory exam: Present normal lung sounds bilaterally; Absent respiratory distress Cardiovascular Cardiovascular exam: Present regular rate and normal rhythm Abdominal Exam Abdominal exam: Present soft; Absent tenderness Extremities Exam Extremities exam: Present normal inspection Neurological Exam Neurological exam: Present alert, oriented X3 and other (Patient has 5 out of 5 strength in the bilateral lower and upper extremities, no limb drift in the bilateral upper and lower extremities, no gross sensation deficit, negative Beaumont's test on the left, no limb ataxia); Absent motor sensory deficit Psychiatric Psychiatric exam: Present normal affect Skin Skin exam: Present warm and dry Medical Decision Making <TJ Castro - Last Filed: 07/10/24 18:55> Medical Records Medical records reviewed: Yes I reviewed the patient's medical records. Screening: Per USPSTF and CDC recommendations, given the prevalence of disease in our region, it is our hospital?s policy to screen for HIV and viral Hepatitis for all patients aged 18 and over and those with ongoing risk factors. Jg Inquiry Pt receiving controlled substance: No Jg was queried for this patient: No Vital Signs: 07/10/24 13:00 07/10/24 13:04 07/10/24 13:30 Temperature 97.7 F Temperature Source Oral Pulse Rate 71 69 Pulse Rate [Left] 74 Respiratory Rate 16 Blood Pressure 166/80 H 155/83 H Blood Pressure [Right Arm] 165/87 H Blood Pressure Mean Blood Pressure Mean [Right Arm] 113 Blood Pressure Source [Right Arm] Automatic Cuff Blood Pressure Position [Right Arm] Sitting 02 Sat by Pulse Oximetry 97 97 97 Oxygen Delivery Method Room Air Room Air Room Air 07/10/24 14:37 07/10/24 15:00 07/10/24 15:30 Temperature Temperature Source Pulse Rate 78 70 83 Pulse Rate [Left] Respiratory Rate 18 Blood Pressure 182/82 H 149/85 H 184/88 H Blood Pressure [Right Arm] Blood Pressure Mean 109 106 116 Blood Pressure Mean [Right Arm] Blood Pressure Source [Right Arm] Blood Pressure Position [Right Arm] 02 Sat by Pulse Oximetry 98 97 99 Oxygen Delivery Method Room Air 07/10/24 15:44 07/10/24 16:00 07/10/24 16:30 Temperature Temperature Source Pulse Rate 73 76 71 Pulse Rate [Left] Respiratory Rate 16 18 Blood Pressure 173/86 H 184/85 H 165/80 H Blood Pressure [Right Arm] Blood Pressure Mean 108 106 112 Blood Pressure Mean [Right Arm] Blood Pressure Source [Right Arm] Blood Pressure Position [Right Arm] 02 Sat by Pulse Oximetry 98 97 97 Oxygen Delivery Method 07/10/24 17:00 07/10/24 17:30 07/10/24 18:00 Temperature Temperature Source Pulse Rate 76 79 Pulse Rate [Left] Respiratory Rate 18 18 Blood Pressure 145/101 H 168/83 H 178/79 H Blood Pressure [Right Arm] Blood Pressure Mean 106 107 109 Blood Pressure Mean [Right Arm] Blood Pressure Source [Right Arm] Blood Pressure Position [Right Arm] 02 Sat by Pulse Oximetry 96 95 94 L Oxygen Delivery Method 07/10/24 18:30 07/10/24 18:52 Temperature 97.8 F Temperature Source Pulse Rate 78 79 Pulse Rate [Left] Respiratory Rate 16 18 Blood Pressure 153/84 H 175/82 H Blood Pressure [Right Arm] Blood Pressure Mean 104 Blood Pressure Mean [Right Arm] Blood Pressure Source [Right Arm] Blood Pressure Position [Right Arm] 02 Sat by Pulse Oximetry 94 L Oxygen Delivery Method Lab Data Lab Results 07/10/24 13:00: WBC 8.4, RBC 4.11 L, Hgb 12.9, Hct 40.7, MCV 99.1 H, MCH 31.4 H, MCHC 31.7 L, RDW 16.4, Plt Count 342, MPV 8.2, Neut % (Auto) 73.5, Lymph % (Auto) 18.7, [place] % (Auto) 6.1, Eos % (Auto) 1.0, Baso % (Auto) 0.8, Neut # (Auto) 6.2, Lymph # (Auto) 1.6, [place] # (Auto) 0.5, Eos # (Auto) 0.1, Baso # (Auto) 0.1, Sodium 140, Potassium 4.3, Chloride 116 H, Carbon Dioxide 16 L, Anion Gap 12.3, BUN 25 H, Creatinine 1.10 H, Estimated Creat Clear 57, Estimated GFR 49 L, Est GFR ( Amer) 60, Glucose 108 H, Calcium 9.3, Magnesium 2.3, Total Bilirubin 0.7, AST 30, ALT 17, Alkaline Phosphatase 129 H, Troponin I < 0.01, Total Protein 6.9, Albumin 4.1, Globulin 2.8, Albumin/Globulin Ratio 1.5 07/10/24 13:00 07/10/24 13:00 Orders (Tests/Meds): ED MEDICATIONS Discontinued Medications Generic Name Dose Route Start Last Admin Trade Name Freq PRN Reason Stop Dose Admin Dexamethasone Sodium Phosphate 10 mg 07/10/24 15:01 07/10/24 15:16 Dexamethasone 4mg/Ml 1ml Vial IV 07/10/24 15:02 10 mg ONCE ONE Administration Ketorolac Tromethamine 15 mg 07/10/24 13:30 07/10/24 13:45 Ketorolac 30mg/Ml Vial IV 07/10/24 13:31 15 mg ONCE ONE Administration ORDERS Category Date Time Status CT cervical spine wo con Stat Cat Scan 07/10/24 13:[address] head/brain wo con Stat Cat Scan 07/10/24 13:27 Completed Complete Blood Count Auto Diff Stat Lab 07/10/24 13:00 Completed Comprehensive Metabolic Panel Stat Lab 07/10/24 13:00 Completed Magnesium Stat Lab 07/10/24 13:00 Completed Troponin I Stat Lab 07/10/24 13:00 Completed Medical Decision Narrative: 69-year-old female presents to the emergency department with paresthesias of the left arm, differential diagnose include not limited to cervical radiculopathy, idiopathic polyneuropathy, diabetic polyneuropathy, complex migraine, electrolyte disturbance. Initial NIH is 1. Discussed patient case with attending physician Dr. James Obtain basic laboratory studies, magnesium level, obtain CT head and CT of the cervical spine without contrast further valuation is greater than cocaine EKG and troponin, further evaluation catheterization, give 15 mg IV Toradol for pain. Reviewed the patient's CBC, MCV is mildly elevated on 9.1, otherwise unremarkable. CMP is notable for hyperchloremia, decreased, dioxide level 16, elevated BUN/creatinine 25/1.1 respectively. Patient's acute kidney injury is slightly outside of her baseline, hyperchloremia and decreased, dioxide level in line with the patient's history of current everyday smoker. Troponin is negative. I reviewed the patient's EKG, NSR at 73 bpm, NV interval within normals, QT interval close there is no STEMI. I discussed this patient's case with radiologist via the phone Reviewed the patient's CT head without contrast along the corresponding radiologic report, focal hypodensity in the white matter of the right temporoparietal region measuring 26 mm in diameter and this is an interval change since 05/27/2024, consider interval infarction or perhaps vasogenic edema for infection or small neoplasm MRI of the brain with and without contrast is recommended. I reviewed the patient CT of the cervical spine without contrast on the corresponding radiologic report no acute findings in the cervical spine. Will start 10 mg IV dexamethasone 4 possibly genic edema. Discussed with family who is now at the bedside, patient has family history of brain tumor on her mother side, mother and aunt, son states the patient started feeling bad , patient's son states this started on Wednesday. Discussed this patient's case with Cathie DAY/stroke navigator at [facility], patient is is accepted at [facility] but is on a wait list. Will try to obtain MRI brain with and without contrast here prior to transfer. She recommends permissive hypertension under 220 as well as other symptomatic control was other symptomatic control. Unfortunately, I was notified by staff that MRI is unable to be obtained today at this facility. Was able to discuss this patient's case with the [facility] transfer physician Dr. Hanley at approximately 4:20 PM he will review the CT imaging with the neurosurgeon and discuss potential transfer/treatment plan. I was able to speak to the [facility] transfer physician Dr. Hanley at 6 PM he spoke to Dr. Gordon the neurosurgeon who recommends ED to ED transfer to the [facility] ED for further evaluation/characterization. I discussed this need for transfer with the patient family at the bedside patient and family are in agreement current treatment plan/transfer plan. Patient will be transferred to [facility] emergency department for further workup. <Michel Wong MD - Last Filed: 07/10/24 19:52> Vital Signs: 07/10/24 13:00 07/10/24 13:04 07/10/24 13:30 Temperature 97.7 F Temperature Source Oral Pulse Rate 71 69 Pulse Rate [Left] 74 Respiratory Rate 16 Blood Pressure 166/80 H 155/83 H Blood Pressure [Right Arm] 165/87 H Blood Pressure Mean Blood Pressure Mean [Right Arm] 113 Blood Pressure Source [Right Arm] Automatic Cuff Blood Pressure Position [Right Arm] Sitting 02 Sat by Pulse Oximetry 97 97 97 Oxygen Delivery Method Room Air Room Air Room Air 07/10/24 14:37 07/10/24 15:00 07/10/24 15:30 Temperature Temperature Source Pulse Rate 78 70 83 Pulse Rate [Left] Respiratory Rate 18 Blood Pressure 182/82 H 149/85 H 184/88 H Blood Pressure [Right Arm] Blood Pressure Mean 109 106 116 Blood Pressure Mean [Right Arm] Blood Pressure Source [Right Arm] Blood Pressure Position [Right Arm] 02 Sat by Pulse Oximetry 98 97 99 Oxygen Delivery Method Room Air 07/10/24 15:44 07/10/24 16:00 07/10/24 16:30 Temperature Temperature Source Pulse Rate 73 76 71 Pulse Rate [Left] Respiratory Rate 16 18 Blood Pressure 173/86 H 184/85 H 165/80 H Blood Pressure [Right Arm] Blood Pressure Mean 108 106 112 Blood Pressure Mean [Right Arm] Blood Pressure Source [Right Arm] Blood Pressure Position [Right Arm] 02 Sat by Pulse Oximetry 98 97 97 Oxygen Delivery Method 07/10/24 17:00 07/10/24 17:30 07/10/24 18:00 Temperature Temperature Source Pulse Rate 76 79 Pulse Rate [Left] Respiratory Rate 18 18 Blood Pressure 145/101 H 168/83 H 178/79 H Blood Pressure [Right Arm] Blood Pressure Mean 106 107 109 Blood Pressure Mean [Right Arm] Blood Pressure Source [Right Arm] Blood Pressure Position [Right Arm] 02 Sat by Pulse Oximetry 96 95 94 L Oxygen Delivery Method 07/10/24 18:30 07/10/24 18:52 Temperature 97.8 F Temperature Source Pulse Rate 78 79 Pulse Rate [Left] Respiratory Rate 16 18 Blood Pressure 153/84 H 175/82 H Blood Pressure [Right Arm] Blood Pressure Mean 104 Blood Pressure Mean [Right Arm] Blood Pressure Source [Right Arm] Blood Pressure Position [Right Arm] 02 Sat by Pulse Oximetry 94 L Oxygen Delivery Method Lab Data Lab Results 07/10/24 13:00: WBC 8.4, RBC 4.11 L, Hgb 12.9, Hct 40.7, MCV 99.1 H, MCH 31.4 H, MCHC 31.7 L, RDW 16.4, Plt Count 342, MPV 8.2, Neut % (Auto) 73.5, Lymph % (Auto) 18.7, [place] % (Auto) 6.1, Eos % (Auto) 1.0, Baso % (Auto) 0.8, Neut # (Auto) 6.2, Lymph # (Auto) 1.6, [place] # (Auto) 0.5, Eos # (Auto) 0.1, Baso # (Auto) 0.1, Sodium 140, Potassium 4.3, Chloride 116 H, Carbon Dioxide 16 L, Anion Gap 12.3, BUN 25 H, Creatinine 1.10 H, Estimated Creat Clear 57, Estimated GFR 49 L, Est GFR ( Amer) 60, Glucose 108 H, Calcium 9.3, Magnesium 2.3, Total Bilirubin 0.7, AST 30, ALT 17, Alkaline Phosphatase 129 H, Troponin I < 0.01, Total Protein 6.9, Albumin 4.1, Globulin 2.8, Albumin/Globulin Ratio 1.5 Orders (Tests/Meds): ED MEDICATIONS Discontinued Medications Generic Name Dose Route Start Last Admin Trade Name Jobyq PRN Reason Stop Dose Admin Dexamethasone Sodium Phosphate 10 mg 07/10/24 15:01 07/10/24 15:16 Dexamethasone 4mg/Ml 1ml Vial IV 07/10/24 15:02 10 mg ONCE ONE Administration Ketorolac Tromethamine 15 mg 07/10/24 13:30 07/10/24 13:45 Ketorolac 30mg/Ml Vial IV 07/10/24 13:31 15 mg ONCE ONE Administration ORDERS Category Date Time Status CT cervical spine wo con Stat Cat Scan 07/10/24 13:[address] head/brain wo con Stat Cat Scan 07/10/24 13:27 Completed Complete Blood Count Auto Diff Stat Lab 07/10/24 13:00 Completed Comprehensive Metabolic Panel Stat Lab 07/10/24 13:00 Completed Magnesium Stat Lab 07/10/24 13:00 Completed Troponin I Stat Lab 07/10/24 13:00 Completed Medical Decision Narrative: 69-year-old female presents to the emergency department with paresthesias of the left arm, differential diagnose include not limited to cervical radiculopathy, idiopathic polyneuropathy, diabetic polyneuropathy, complex migraine, electrolyte disturbance. Initial NIH is 1. Discussed patient case with attending physician Dr. James Obtain basic laboratory studies, magnesium level, obtain CT head and CT of the cervical spine without contrast further valuation is greater than cocaine EKG and troponin, further evaluation catheterization, give 15 mg IV Toradol for pain. Reviewed the patient's CBC, MCV is mildly elevated on 9.1, otherwise unremarkable. CMP is notable for hyperchloremia, decreased, dioxide level 16, elevated BUN/creatinine 25/1.1 respectively. Patient's acute kidney injury is slightly outside of her baseline, hyperchloremia and decreased, dioxide level in line with the patient's history of current everyday smoker. Troponin is negative. I reviewed the patient's EKG, NSR at 73 bpm, NV interval within normals, QT interval close there is no STEMI. I discussed this patient's case with radiologist via the phone Reviewed the patient's CT head without contrast along the corresponding radiologic report, focal hypodensity in the white matter of the right temporoparietal region measuring 26 mm in diameter and this is an interval change since 05/27/2024, consider interval infarction or perhaps vasogenic edema for infection or small neoplasm MRI of the brain with and without contrast is recommended. I reviewed the patient CT of the cervical spine without contrast on the corresponding radiologic report no acute findings in the cervical spine. Will start 10 mg IV dexamethasone 4 possibly genic edema. Discussed with family who is now at the bedside, patient has family history of brain tumor on her mother side, mother and aunt, son states the patient started feeling bad , patient's son states this started on Wednesday. Discussed this patient's case with Cathie DAY/stroke navigator at [facility], patient is is accepted at [facility] but is on a wait list. Will try to obtain MRI brain with and without contrast here prior to transfer. She recommends permissive hypertension under 220 as well as other symptomatic control was other symptomatic control. Unfortunately, I was notified by staff that MRI is unable to be obtained today at this facility. Was able to discuss this patient's case with the [facility] transfer physician Dr. Hanley at approximately 4:20 PM he will review the CT imaging with the neurosurgeon and discuss potential transfer/treatment plan. I was able to speak to the [facility] transfer physician Dr. Hanley at 6 PM he spoke to Dr. Gordon the neurosurgeon who recommends ED to ED transfer to the [facility] ED for further evaluation/characterization. I discussed this need for transfer with the patient family at the bedside patient and family are in agreement current treatment plan/transfer plan. Patient will be transferred to [facility] emergency department for further workup. I was consulted by the [facility], and we discussed the complexity of the problems being addressed. I approved the treatment and management plan for this patient's care in the Emergency Department, thus performing a substantive portion of the medical decision making. Michel Wong MD Critical Care <TJ Castro - Last Filed: 07/10/24 18:55> Critical Care Time Critical Care Time: No <Michel Wong MD - Last Filed: 07/10/24 19:52> Critical Care Time Critical Care Time: Yes (neuro) Attestation: On 07/10/24, the high probability of a clinically significant, sudden or life threatening deterioration of the following system(s) required my full and direct attention, intervention and personal management. The time I documented below is in addition to time spent performing reported procedures but includes the following listed in this critical care notation. Total Time Total Critical Care Time: 60
[2024-07-10 13:36] LABS: Albumin Level 4.1 g/dl (3.5-5.0); Chloride 116 mmol/L (98-107); Potassium 4.3 mmoL/L (3.5-5.1); Sodium 140 mmol/L (136-145)
[2024-07-10 13:37] LABS: Basophils # 0.1 K/mm3 (0-0.2); Basophils % 0.8 % (0.1-2.0); Eosinophils # 0.1 K/mm3 (0.0-0.4); Hematocrit 40.7 % (37.0-47.0); Hemoglobin 12.9 g/dL (12.2-16.2); Lymphocytes # 1.6 K/mm3 (0.7-4.5); Lymphocytes % 18.7 % (10-50); Mean Corpuscular HGB Conc 31.7 g/dL (31.8-35.4); Mean Corpuscular Hemoglobin 31.4 pg (27.0-31.2); Mean Corpuscular Volume 99.1 fl (81-99); Mean Platelet Volume 8.2 fl (7.4-10.4); Monocytes # 0.5 K/mm3 (0.1-1.0); Monocytes % 6.1 % (1.7-9.3); Neutrophils # 6.2 K/mm3 (1.8-7.8); Neutrophils % 73.5 % (37.0-80.0); Platelet Count 342 K/mm3 (142-424); Red Blood Count 4.11 M/mm3 (4.20-5.40); Red Cell Distribution Width 16.4 % (11.5-17.5); White Blood Count 8.4 K/mm3 (4.8-10.8)
[2024-07-10 13:39] LABS: Alanine Aminotransferase 17 U/L (12-78); Albumin/Globulin Ratio 1.5 (1.1-1.8); Alkaline Phosphatase 129 U/L (38-126); Anion Gap 12.3 mEq/L (5-15); Aspartate Amino Transferase 30 U/L (14-36); Bilirubin,Total 0.7 mg/dl (0.2-1.3); Blood Urea Nitrogen 25 mg/dl (7-17); Calcium 9.3 mg/dl (8.4-10.2); Carbon Dioxide 16 mmol/L (22.0-30.0); Creatinine Clearance Estimated 57 mL/min (50-200); Estimated Glomerular Filt Rate 49 ml/min (>60); GFR (African American) 60 ML/MIN (>60); Globulin 2.8 g/dL (1.3-3.2); Glucose 108 mg/dl (74-100); Magnesium 2.3 mg/dl (1.6-2.3); Total Protein,Serum 6.9 g/dl (6.3-8.2)
[2024-07-10] MEDS: KETOROLAC 30MG/ML VIAL 15 MG IV (13:45)
[2024-07-10 13:52] LABS: Troponin I < 0.01 ng/ml (0.00-0.034)
--- NOTE | 2024-07-10 13:52 | ECG_ITS ---
APPROVED REPORT Exam: Resting ECG HR:73 bpm ECG Measurements Heart Rate 73 AXES MT 169 P 70 QRSd 87 QRS 71 QT 397 T 89 QTc 423 Conclusion SINUS RHYTHM MINIMAL ST DEPRESSION [0.025+ mV ST DEPRESSION] BORDERLINE ECG UNCONFIRMED REPORT Electronically signed by : Jamari James, 07/10/2024 14:55:17
--- NOTE | 2024-07-10 15:07 | PC.NURSE ---
IMAGES POWERSHARED WITH [facility]
[2024-07-10] MEDS: DEXAMETHASONE 4MG/ML 1ML VIAL 10 MG IV (15:16)
--- NOTE | 2024-07-10 15:32 | PC.NURSE ---
Javier Figueroa at for update on POC
--- NOTE | 2024-07-10 15:38 | PC.NURSE ---
TJ Pritchett speaking with [facility] Transfer team Imaging disc being burned
--- NOTE | 2024-07-10 16:22 | PC.NURSE ---
spoke with Romy in radiology to [facility] [facility] to [facility]
--- NOTE | 2024-07-10 16:24 | PC.NURSE ---
called [facility] per TJ Figueroa to speak with them about this pt
--- NOTE | 2024-07-10 18:19 | PC.NURSE ---
Report called to Priyank Alexander at [facility].
== END 2024-07-10 18:45 | disposition short-term general hospital (02) ==
PROVIDERS: Physician Assistant; Emergency Provider Emergency Medicine; PCP Family Medicine
DX: R51.9 Headache, unspecified (principal); R20.2 Paresthesia of skin; R53.1 Weakness
CPT/HCPCS: 70450; 72125; 80053; 83735; 84484; 85025; 93005; 96374; 96375; 99291; J1100; J1885

== ENCOUNTER 2025-02-08 10:55 | Outpatient (CLI) | payer MEDICARE, MEDICAID, SELFPAY ==
[2025-02-08 17:32] LABS: Hematocrit 33.9 % (37.0-47.0); Hemoglobin 10.0 g/dL (12.2-16.2); Immature Granulocytes % 0.1 %; Mean Corpuscular HGB Conc 29.5 g/dL (31.8-35.4); Mean Corpuscular Hemoglobin 25.8 pg (27.0-31.2); Mean Corpuscular Volume 87.4 fl (81-99); Nucleated Red Blood Cells % 0 %; Platelet Count 411 K/mm3 (142-424); Red Blood Count 3.88 M/mm3 (4.20-5.40); Red Cell Distribution Width-SD 61.2 fL; White Blood Count 8.7 K/mm3 (4.8-10.8)
[2025-02-08 18:17] LABS: Alanine Aminotransferase 9 U/L (12-78); Albumin Level 4.1 g/dl (3.5-5.0); Albumin/Globulin Ratio 1.4 (1.1-1.8); Alkaline Phosphatase 113 U/L (38-126); Anion Gap 19.1 mEq/L (5-15); Aspartate Amino Transferase 18 U/L (14-36); Bilirubin,Total 0.4 mg/dl (0.2-1.3); Blood Urea Nitrogen 37 mg/dl (7-17); Calcium 9.3 mg/dl (8.4-10.2); Carbon Dioxide 18 mmol/L (22.0-30.0); Chloride 109 mmol/L (98-107); Cholesterol 193 mg/dl (140-200); Creatinine,Serum 1.40 mg/dl (0.52-1.04); Estimated Glomerular Filt Rate 37 ml/min (>60); GFR (African American) 45 ML/MIN (>60); Globulin 2.9 g/dL (1.3-3.2); Glucose 79 mg/dl (74-100); HDL Cholesterol 51 mg/dl (40-60); Magnesium 2.2 mg/dl (1.6-2.3); Potassium 5.1 mmoL/L (3.5-5.1); Sodium 141 mmol/L (136-145); Total Protein,Serum 7.0 g/dl (6.3-8.2); Triglycerides 80 mg/dl (30-150)
[2025-02-08 18:48] LABS: Thyroid Stimulating Hormone 1.19 uIU/mL (0.465-4.68)
--- OUTSIDE RECORDS SUMMARY | 2025-02-09 13:35 | XMS_ITS | Clinical Summary ---
Author Organization [facility] Address [address] 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 Active ASPIRIN 81 MG chewable tablet Chew 1 tablet (81 mg) 1 (one) time each day. Active atorvastatin (Lipitor) 80 MG tablet Take 1 tablet (80 mg) by mouth 1 (one) time each day. Active magnesium oxide (Mag-Ox) 400 (240 Mg) MG tablet Take 1 tablet (400 mg) by mouth 1 (one) time each day. Active acetaminophen (Tylenol) 500 MG tablet Take 2 tablets (1,000 mg) by mouth 3 (three) times a day if needed for headaches or pain. Active cyanocobalamin 1000 MCG tablet Take 1 tablet (1,000 mcg) by mouth 1 (one) time each day. Active topiramate (Topamax) 25 MG tablet Take 1 tablet (25 mg) by mouth 1 (one) time each day for 20 days. 20 tablet Active Active Problems Problem Noted Date Diagnosed Date Numbness 07/11/2024 Migraine 05/29/2024 COPD (chronic obstructive pulmonary disease) Hypertensive urgency 05/28/2024 Other complicated headache syndrome 05/28/2024 Prediabetes 05/28/2024 Essential (primary) hypertension 05/27/2024 Other nonspecific abnormal finding of lung field 05/27/2024 Other symptoms and signs involving the nervous s ystem 05/27/2024 Paresthesia of skin 05/27/2024 Transient ischemic attack (TIA) 05/27/2024 Resolved Problems Problem Noted Date Diagnosed Date Resolved Date Acute ischemic stroke 07/10/20242023 Immunizations Immunization Administration Dates Next Due [employer] COVID-19 Vaccine (Blue Cap) 18+ 03/20/20 21 Social History Tobacco Use Types Packs/Day Years Used Date Smoking Tobacco: Never Assessed Humiliation, Afraid, Rape, and Kick questionnair e Answer Date Recorded Within the last year, have y ou been afraid of your partner or ex-partner? No 07/12/2024 Within the last year, have y ou been humiliated or emotionally abused in other ways by your partner or ex-partner? No Within the last year, have y ou been kicked, hit, slapped, or otherwise physically hurt by your partner or ex-partner? No 07/12/2024 Within the last year, have y ou been raped or forced to have any kind of sexual activity by your partner or ex-partner? No 07/12/2024 Hunger Vital Sign Answer Date Recorded Within the past 12 months, y ou worried that your food would run out before you got the money to buy more. Never true 07/12/20 24 Within the past 12 months, t he food you bought just didn't last and you didn't have money to get more. Never true 07/12/2024 PRAPARE - Transportation Answer Date Re corded In the past 12 months, has l ack of transportation kept you from medical appointments or from getting medications? No 07/02 In the past 12 months, has l ack of transportation kept you from meetings, work, or from getting things needed for daily living? No 07/12/2024 Housing Stability Vital Sign Answer Dylan e Recorded In the last 12 months, was t here a time when you were not able to pay the mortgage or rent on time? No 07/12/2024 In the past 12 months, how m any times have you moved where you were living? 1 07/12/2024 At any time in the past [address] [facility], were you homeless or living in a senior care (including now)? No 07/12/2024 Utilities Answer Date Recorded In the past 12 months has th e [employer], gas, oil, or water [employer] threatened to shut off services in your home? No 07/12/2024 Comments Unknown Sex and Gender Information Value Date Recorded Sex Assigned at Not on file Legal Sex Female 4:22 PM EST Gender Identity Not on file Sexual Orientation Not on file Last Filed Vital Signs Vital Sign Reading Time Taken Comments Blood Pressure 153/73 07/12/2024 11:45 AM EST Pulse 79 07/12/2024 11:45 AM EST Temperature 36.9 C (98.5 F) 07/12/2024 11:45 AM EST Respiratory Rate 26 07/12/2024 11:45 AM EST Oxygen Saturation 92% 07/12/2024 11:45 AM EST Inhaled Oxygen Concentration - - Weight 72.3 kg (159 lb 6.3 oz) 07/11/2024 8:26 A M EST Height 160 cm (5' 3 ) 07/10/2024 7:48 PM EST Body Mass Index 28.24 07/10/2024 7:48 PM EST Plan of Treatment Health Maintenance Due Date Last Done Comments [facility]-Bone Density Scan 1955 [facility]-Depression Screening 1955 [facility]-Hepatitis C Screening 1955 [facility]-Medicare Annual Wellness (AWV) 1955 [facility]-Infant/Child/Adol SDOH Screenings 1955 [facility]-DTaP,Tdap,and Td Vaccine s (1 - Tdap) 1974 CT Colonography 01/19/2000 Colonoscopy 01/19/2000 FIT-DNA 01/19/2000 FIT 01/19/2000 FOBT 01/19/2000 Sigmoidoscopy 01/19/2000 [facility]-Colorectal Cancer Screening 01/19/2000 [facility]-Breast Cancer Screening 2005 [facility]-Pneumococcal Vaccine: 50 + Years (1 of 1 - PCV) 2005 [facility]-Zoster Vaccines (1 of 2) 2005 [id number] Vaccine (2 - season) 2024 03/20/2021 [facility]- SDOH Screenings 01/10/2025 [facility]-Adult SDOH Screenings 01/10/2025 07/12/2024 [facility]-Influenza Vaccine (#1) 2025 [facility]-Diabetes: Hemoglobin A1C 07/10/202504/2024, 05/28/2024 [facility]-RSV Vaccine: 60+ Years o r (1 - 1-dose 75+ series) 2030 [facility]-Obesity Intervention Completed 07/10/2024 HPV Vaccines Aged Out No longer eligi ble based on patient's age to complete this topic [facility]-HIB Vaccines Aged Out No longer e ligible based on patient's age to complete this topic [facility]-Hepatitis A Vaccines Aged Out No longer eligible based on patient's age to complete this topic [facility]-IPV Vaccines Aged Out No longer e ligible based on patient's age to complete this topic [facility]-Rotavirus Vaccines Aged Out No lo nger eligible based on patient's age to complete this topic Procedures Procedure Name Priority Date/Time Associated Diagnosis Comments HEMOGLOBIN A1C Add-On 07/10/2024 9:13 PM EST from Last 3 Months or Most Recently Relevant to Health Maintenance Results * (ABNORMAL) Hemoglobin A1c (07/10/2024 9:13 PM EST) Hemoglobin A1c 5.8(H) <5.7 % 07/11/2024 12:40 AM EST [facility] Blood Venous blood specimen / Unknown Venipuncture / Unknown 07/10/2024 9:13 PM EST 07/10/2024 9:25 PM EST Narrative [facility] - 07/11/2024 12:40 AM EST HA1C Interpretive Data: Diagnosis of Diabetes: Diabetic > or = 6.5% Pre-diabetic 5.7 to 6.4% Non-diabetic < or = 5.6% Glycemic Targets for Type I and Type II Diabetics: Non- Adults <7.0% Adults <6.0% Children and Adolescents <7.5% Source: [place] [employer]. Standards of medical care in diabetes,2017. Diabetes Care.2017:40 (suppl 1):S1-S135. HbA1c assay performed by an ion-exchange chromatography method that is certified traceable to the DCCT. us Ramya Cope DO LAB BLOOD ORDERABLES Final Res ult [facility] [address] [place] [address] from Last 3 Months or Most Recently Relevant to Health Maintenance Insurance MEDICARE MEDICAID-[place] Advance Directives * Full Code (Latest Code Status on File) Date Activated Date Inactivated Comments 07/10/2024 11:34 PM 07/12/2024 4:57 PM Question Answer Comments Patient has decision-making capacity? Yes Care Teams Face And Fill Packer Relationship Specialty Start Date End Date Michael Simeon MD PCP - General Family Medicine 07/10/24
== END 2025-02-08 23:59 | disposition home or self-care (01) ==
LOC: LAB.DROPOF 02-09 13:34
PROVIDERS: PCP Family Medicine; Visit Provider Family Medicine
DX: I10 Essential (primary) hypertension (principal); E78.5 Hyperlipidemia, unspecified; G45.9 Transient cerebral ischemic attack, unspecified; R79.0 Abnormal level of blood mineral
CPT/HCPCS: 80053; 80061; 83735; 84443; 85025

== ENCOUNTER 2025-03-13 22:04 | Inpatient (IN) | payer MEDICARE, MEDICAID, SELFPAY ==
--- NOTE | 2025-03-13 21:57 | CT_ITS ---
PROCEDURE INFORMATION: Exam: CTA Abdomen and Pelvis With Contrast Exam date and time: 03/13/2025 10:20 PM Age: 70 years old Clinical indication: Other: Bloody bowel movements TECHNIQUE: Imaging protocol: Computed tomographic angiography of the abdomen and pelvis with contrast. Exam focused on the arteries. 3D rendering (Not supervised by radiologist): MIP and/or 3D reconstructed images were created by the technologist. Radiation optimization: All CT scans at this facility use at least one of these dose optimization techniques: automated exposure control; mA and/or kV adjustment per patient size (includes targeted exams where dose is matched to clinical indication); or iterative reconstruction. Contrast material: ISO 370; Contrast volume: 80 ml; Contrast route: INTRAVENOUS (IV); COMPARISON: CR XR CHEST PORTABLE 05/27/2024 11:29 PM FINDINGS: Aorta: Moderate atherosclerotic calcification throughout the aorta. No evidence of aneurysm or dissection. Celiac trunk and mesenteric arteries: There is a common trunk of the celiac and superior mesenteric arteries. No evidence of stenosis or occlusion. Inferior mesenteric artery is patent. Renal arteries: Mild focal stenosis of the origin of the left renal artery. No significant stenosis or occlusion of the right renal artery Right iliac arteries: No occlusion or significant stenosis. Left iliac arteries: No occlusion or significant stenosis. Liver: No mass. Gallbladder and biliary ducts: Unremarkable. No calcified stones. No ductal dilation. Pancreas: Unremarkable. No mass. No ductal dilation. Spleen: Unremarkable. No splenomegaly. Adrenal glands: Unremarkable. No mass. Kidneys and ureters: 2.4 cm exophytic simple cortical cyst of the left kidney. Right kidney appears unremarkable. No hydronephrosis. Stomach and bowel: Significant diverticulosis throughout the distal colon. There is long segment wall thickening and mucosal enhancement involving the descending and sigmoid portions of the colon suggesting regional colitis more prominent localized eccentric wall thickening noted along the cephalad portion of the mid sigmoid colon (coronal images 85-93). No evidence of bowel obstruction. Appendix: The appendix is visualized and appears normal. Intraperitoneal space: Unremarkable. No free air. No significant fluid collection. Lymph nodes: Unremarkable. No enlarged lymph nodes. Urinary bladder: Unremarkable. No mass. Reproductive: Unremarkable as visualized. Bones/joints: Significant degenerative disc changes and facet arthropathy in the lower lumbar spine. No vertebral body compression. No acute fracture. Soft tissues: Unremarkable. IMPRESSION: 1. Diffuse wall thickening throughout the descending and sigmoid portions of the colon compatible with nonspecific colitis. More prominent localized eccentric wall thickening in the mid sigmoid colon raises concern for acute diverticulitis. Short interval follow-up indicated to ensure improvement with adequate therapy and exclude underlying neoplasm. 2. Significant atherosclerotic changes without significant mesenteric or renal artery stenosis or occlusion
[2025-03-13 22:04] VITALS: BP 137/69; PULSE 79; RESP 20; TEMP 37.2; O2SAT 95; BMI 27.4
[2025-03-13 22:06] LABS: Immature Granulocytes % 1.3 %; Mean Corpuscular HGB Conc 30.4 g/dL (31.8-35.4); Mean Corpuscular Hemoglobin 25.4 pg (27.0-31.2); Mean Corpuscular Volume 83.5 fl (81-99); Nucleated Red Blood Cells % 0 %; Platelet Count 408 K/mm3 (142-424); Red Blood Count 2.48 M/mm3 (4.20-5.40); Red Cell Distribution Width-SD 55.5 fL; White Blood Count 10.8 K/mm3 (4.8-10.8)
[2025-03-13 22:08] LABS: Albumin Level 3.3 g/dl (3.5-5.0); Chloride 113 mmol/L (98-107); Hematocrit 20.7 % (37.0-47.0); Hemoglobin 6.3 g/dL (12.2-16.2); Potassium 3.6 mmoL/L (3.5-5.1); Sodium 138 mmol/L (136-145)
[2025-03-13 22:10] LABS: Alanine Aminotransferase 8 U/L (12-78); Aspartate Amino Transferase 14 U/L (14-36); Bilirubin,Total 0.2 mg/dl (0.2-1.3); Blood Urea Nitrogen 26 mg/dl (7-17); Creatinine,Serum 1.00 mg/dl (0.52-1.04); Estimated Glomerular Filt Rate 55 ml/min (>60); GFR (African American) 66 ML/MIN (>60)
[2025-03-13 22:11] LABS: Albumin/Globulin Ratio 1.3 (1.1-1.8); Alkaline Phosphatase 86 U/L (38-126); Anion Gap 4.6 mEq/L (5-15); Calcium 8.0 mg/dl (8.4-10.2); Carbon Dioxide 24 mmol/L (22.0-30.0); Globulin 2.5 g/dL (1.3-3.2); Glucose 160 mg/dl (74-100); Lipase 54 U/L (23-300); Total Protein,Serum 5.8 g/dl (6.3-8.2)
[2025-03-13 22:16] LABS: C-Reactive Protein 24.7 mg/L (0-4)
[2025-03-13] MEDS: IOPAMIDOL-370 (76%);100ML BOTTLE 80 ML IV (22:19)
[2025-03-13] MEDS: 0.9 % SODIUM CHLORIDE 50 ML VIAL IV (22:19)
[2025-03-13] MEDS: SODIUM CHLORIDE 0.9% 10ML SYR (RAD ONLY) 10 ML IV (22:19)
--- OUTSIDE RECORDS SUMMARY | 2025-03-13 22:22 | XMS_ITS | Clinical Summary ---
Author Organization [facility] Address [address] 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 No 07/12/2024 Utilities Answer Date Recorded In the past 12 months has e [employer], gas, oil, or water [employer] threatened to shut off services in your [...] Screening 1955 [facility]-Medicare Annual Wellness (AWV) 1955 [facility]-/Child/Adol SDOH Screenings 1955 [facility]-DTaP,Tdap,and Td Vaccine s (1 - Tdap) 1974 CT Colonography 01/19/2000 Colonoscopy 01/19/2000 FIT-DNA 01/19/2000 FIT 01/19/2000 FOBT 01/19/2000 Sigmoidoscopy 01/19/2000 [facility]-Colorectal Cancer Screening 01/19/2000 [facility]-Breast Cancer Screening 2005 [facility]-Pneumococcal Vaccine: 50 + Years (1 of 1 - PCV) 2005 [facility]-Zoster Vaccines (1 of 2) 2005 [facility]-RSV Vaccine: 60+ Years o r (1 - Risk 60-74 years 1-dose series) 2015 [id number] Vaccine (2 - Ma[place] risk series) 04/17/2021 03/20/2021 [facility]- SDOH Screenings 01/10/2025 [facility]-Adult SDOH Screenings 01/10/2025 07/12/2024 [facility]-Influenza Vaccine (#1) 2025 [facility]-Diabetes: Hemoglobin A1C 07/10/202504/2024, 05/28/2024 [facility]-Obesity Intervention Completed 07/10/2024 HPV Vaccines Aged [...] 5.8(H) <5.7 % 07/11/2024 12:40 AM EST [facility] Blood Venous blood specimen / Unknown Venipuncture / Unknown 07/10/2024 9:13 PM EST 07/10/2024 9:25 PM EST Narrative [facility] - 07/11/2024 12:40 AM EST HA1C Interpretive Data: Diagnosis of Diabetes: Diabetic > or = 6.5% Pre-diabetic 5.7 to 6.4% Non-diabetic < or = 5.6% Glycemic Targets for Type I and Type II Diabetics: Non- Adults <7.0% Adults <6.0% Children and Adolescents <7.5% Source: [place] [employer]. Standards of medical care in diabetes,2017. Diabetes Care.2017:40 (suppl 1):S1-S135. HbA1c assay performed by an ion-exchange chromatography method that is certified traceable to the DCCT. us Ramya Cope DO LAB BLOOD ORDERABLES Final Res ult [facility] [address] [place] [address] from Last 3 Months or Most Recently Relevant to Health Maintenance Insurance MEDICARE [place]ID-[place] Advance Directives * Full Code (Latest Code Status on File) Date Activated Date Inactivated Comments 07/10/2024 11:34 PM 07/12/2024 4:57 PM Question Answer Comments Patient has decision-making capacity? 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
[2025-03-13 22:27] LABS: Activated Partial Thrombo Time 21.1 seconds (22.8-30.6); INR 0.99 (0.9-1.1); Prothrombin Time 11.0 seconds (10.1-12.5)
--- NOTE | 2025-03-13 22:30 | ED_ITS ---
Discharge Plan Disposition Patient Disposition: Admitted Prescriptions Prescriptions: No Action magnesium oxide 400 mg (241.3 mg magnesium) tablet 400 mg PO HS Patient Comments: TAKE 1 TABLET BY MOUTH ONCE DAILY AT NIGHT aspirin [Children's Aspirin] 81 mg tablet,chewable 81 mg PO DAILY Qty: 100 3RF clopidogrel 75 mg tablet 75 mg PO DAILY 90 Days Qty: 90 0RF furosemide 20 mg tablet 20 mg PO QAM Qty: 30 2RF propranolol 80 mg capsule,extended release 24 hr 80 mg PO DAILY 30 Days Qty: 30 2RF Clinical Impressions Clinical Impression: Acute GI bleeding, Diverticulitis, Colitis, Acute blood loss anemia Print Language Print Language: Senegalese Discharge ED Provider: Rei Fiore General Adult HPI General Chief complaint: GI Bleed Stated complaint: rectal bleeding Time Seen by Provider: 03/13/25 22:04 Mode of Arrival: EMS Source of Information: Patient and EMS Description of Symptoms (Recalled from ER Triage Doc. by RN): Pt presents to ED via [facility] for rectal bleeding that started today. Pt does take Plavix daily. Pt states the blood is dark & tarry and also has bright streaks of red. Pt is pale and weak. Pt states she has no pain at this time. History of Present Illness HPI narrative: Cha Heredia is a 70F with a history of previous stroke on aspirin and Plavix, hyperlipidemia, hypertension, previous GI bleed who presents to the emergency department for complaints of bright red blood and dark stools. Patient states that today, she has had multiple episodes of bloody stools, describing them as dark and bright red. She states that they have occurred approximately every 15 minutes. She took her blood pressure at home and said it was low with systolic blood pressure in the 90s, which prompted her to come to the emergency department. She stated that several days ago, she also had a similar type episode but the bleeding stopped on its own. She denies any abdominal pain. She denies any chest pain or shortness of breath. Related Data Home Medications ?Medication ?Instructions ?Recorded ?Confirmed magnesium oxide 400 mg (241.3 mg 400 mg PO HS 06/07/24 01/03/25 magnesium) tablet Previous Rx's ?Medication ?Instructions ?Recorded aspirin 81 mg chewable tablet 81 mg PO DAILY blood cir culation 10/20/24 (Children's Aspirin) #100 tabs clopidogrel 75 mg tablet 75 mg PO DAILY 90 days #90 t abs 01/22/25 furosemide 20 mg tablet 20 mg PO QAM fluid retention #30 01/22/25 tabs propranolol 80 mg capsule,24 80 mg PO DAILY blood pres sure 30 02/06/25 hr,extended release days #30 caps Allergies Allergy/AdvReac Type Severity Reaction Status Date / Time miconazole (From MONISTAT 7) Allergy Mild Unknown Verified 01/03/25 13:34 [facility] Disclaimer: The information contained in this section may have been updated after the patient was seen, as this information can be updated by other users. Medical History (Updated 03/13/25 @ 23:47 by Rei Fiore MD) Low serum vitamin B2 Migraines Low magnesium level Hyperlipidemia Hypertension Surgical History Tubal ligation status H/O skin graft Social History Smoking Status: Current every day smoker alcohol intake: never current occupational status: retired Travel in the last 8 weeks?: None Have you lived/traveled outside US in past 30 days?: No Contact w/someone who lives/traveled outside US past 30 days?: No Exposure to someone with infectious disease in past 14 days?: No Do you have a fever (greater than 100.4 F or 38 C)?: No Have you tested positive for COVID-19?: No Exposed to someone with COVID-19 in past 14 days?: No Do you have a sore throat?: No Do you have a cough?: No Do you have any weakness?: No Do you have any diarrhea?: No Are you experiencing any unusual bleeding?: Yes Do you have any muscle aches/pain?: No Do you have any abdominal pain?: No Are you experiencing loss of taste or smell?: No Other Medical History Have you received the Pneumonia Vaccine: No ROS Obtained: Yes Systems reviewed as appropriate & no additional complaints except as documented Physical Exam General General appearance: alert and in no apparent distress Comment: Ill appearing Head Head exam: atraumatic Eye Eye exam: Present normal appearance ENT ENT exam: Present normal external ear exam Neck Neck exam: Present full ROM Chest Chest inspection: Present symmetric chest wall rise Respiratory Respiratory exam: Present normal lung sounds bilaterally; Absent respiratory distress, wheezes or stridor Cardiovascular Cardiovascular exam: Present regular rate and normal rhythm Abdominal Exam Abdominal exam: Present soft and tenderness (suprapubic); Absent distention, guarding, rebound or rigidity Extremities Exam Extremities exam: Present normal inspection Back Exam Back exam: Present normal inspection Neurological Exam Neurological exam: Present alert and oriented X3 Psychiatric Psychiatric exam: Present normal affect Skin Skin exam: Present warm, dry and other (pale) Medical Decision Making Medical Records Screening: Per USPSTF and CDC recommendations, given the prevalence of disease in our region, it is our hospital?s policy to screen for HIV and viral Hepatitis for all patients aged 18 and over and those with ongoing risk factors. Jg Inquiry Pt receiving controlled substance: No Vital Signs: 03/13/25 22:04 03/13/25 22:04 Temperature 98.9 F Temperature Source Oral Pulse Rate [Left] 79 Respiratory Rate 20 Blood Pressure [Right Arm] 137/69 Blood Pressure Mean [Right Arm] 91 02 Sat by Pulse Oximetry 95 95 Oxygen Delivery Method Room Air Room Air Lab Data Lab Results 03/13/25 21:55: WBC 10.8, RBC 2.48 L, Hgb 6.3 L*, Hct 20.7 L*, MCV 83.5, MCH 25.4 L, MCHC 30.4 L, RDW 18.4 H, Plt Count 408, MPV 10.8 H, Neut % (Auto) 74.9, Lymph % (Auto) 13.6, [place] % (Auto) 7.6, Eos % (Auto) 1.9, Baso % (Auto) 0.7, N eut # (Auto) 8.1 H, Lymph # (Auto) 1.5, [place] # (Auto) 0.8, Eos # (Auto) 0.2, Baso # (Auto) 0.1, PT 11.0, INR 0.99, APTT 21.1 L, Sodium 138, Potassium 3.6, C hloride 113 H, Carbon Dioxide 24, Anion Gap 4.6 L, BUN 26 H, Creatinine 1.00, E stimated GFR 55 L, Est GFR ( Amer) 66, Glucose 160 H, Calcium 8.0 L, Total Bilirubin 0.2, AST 14, ALT 8 L, Alkaline Phosphatase 86, C-Reactive Protein 24.7 H, Total Protein 5.8 L, Albumin 3.3 L, Globulin 2.5, Albumin/Globulin Ratio 1.3, Lipase 54 03/13/25 22:00: Blood Type A Positive, Antibody Screen Negative, Crossmatch (AHG) See Detail 03/13/25 22:45: Blood Type Confirm A Positive 03/13/25 23:30: Urine Color Yellow, Urine Appearance Clear, Urine pH 6.0, Ur Specific [place] 1.010, Urine Protein Negative, Urine Glucose (UA) Negative, Urine Ketones Negative, Urine Blood 3+ A, Urine Nitrate Negative, Urine Bilirubin Negative, Urine Urobilinogen 0.2, Ur Leukocyte Esterase Negative 03/13/25 21:55 03/13/25 21:55 Orders (Tests/Meds): ED MEDICATIONS Generic Name Dose Route Start Last Admin Trade Name Freq PRN Reason Stop Dose Admin Sodium Chloride 250 mls @ 25 mls/hr 03/13/25 22:30 03/13/25 22:52 Sod Chlor 0.9% 250ml Bag IV 03/14/25 22:29 25 mls/hr .Q10H AJITH Administration Discontinued Medications Generic Name Dose Route Start Last Admin Trade Name Freq PRN Reason Stop Dose Admin Iopamidol 80 ml 03/13/25 22:18 03/13/25 22:19 Iopamidol-370 (76%);100ml Bottle IV 03/13/25 22:19 80 ml ONCE ONE Administration Sodium Chloride 50 ml 03/13/25 22:18 03/13/25 22:19 0.9 % Sodium Chloride 50 Ml Vial IV 03/13/25 22:19 50 ml ONCE ONE Administration Sodium Chloride 10 ml 03/13/25 22:18 03/13/25 22:19 Sodium Chloride 0.9% 10ml Syr (Rad Only) IV 03/13/25 22:19 10 ml ONCE ONE Administration ORDERS Category Date Time Status Transfuse RBC's [Red Blood Cells] Stat BBK 03/13/25 22:00 Results Type and Screen Stat BBK 03/13/25 22:[address] angio abd/pel - GI Bleed Stat Cat Scan 03/13/25 21:57 Completed CBC w/Auto Diff [Complete Blood Count Auto Diff] Stat Lab 03/13/25 21:55 Completed CMP [Comprehensive Metabolic Panel] Stat Lab 03/13/25 21:55 Completed CRP [C-Reactive Protein] Stat Lab 03/13/25 21:55 Completed Lipase Stat Lab 03/13/25 21:55 Completed Occult Blood,Stool Stat Lab 03/13/25 21:57 Ordered PT INR [Prothrombin Time INR] Stat Lab 03/13/25 21:55 Completed PTT [Activated Partial Thrombo Time] Stat Lab 03/13/25 21:55 Completed UA [Urinalysis and Microscopic] Stat Lab 03/13/25 23:30 Results Medical Decision Narrative: Cha Heredia is a 70F with a history of previous stroke on aspirin and Plavix, hyperlipidemia, hypertension, previous GI bleed who presents to the emergency department for complaints of bright red blood and dark stools. Patient states that today, she has had multiple episodes of bloody stools, describing them as dark and bright red. She states that they have occurred approximately every 15 minutes. She took her blood pressure at home and said it was low with systolic blood pressure in the 90s, which prompted her to come to the emergency department. She stated that several days ago, she also had a similar type episode but the bleeding stopped on its own. She denies any abdominal pain. She denies any chest pain or shortness of breath. Patient received 500 cc of crystalloid and route. On arrival, patient is normotensive, heart rate within normal limits, breathing 20 times a minute, oxygen saturation 95% on room air. Afebrile. Physical exam, as stated above, revealed an ill but nontoxic- appearing female. She is alert and answering questions appropriately and following commands. She appears pale. Cardiopulmonary exam reveals no tachycardia, no murmurs, no wheezing or rales or rhonchi. Abdomen has mild suprapubic tenderness but is otherwise soft, nondistended. She has pulses in all extremities. Very mild peripheral edema. Differential diagnosis includes, but is not limited to: Upper GI bleed, lower GI bleed, aortoenteric fistula, coagulopathy, blood loss anemia, electrolyte derangement, metabolic derangement, among others. The most morbid conditions were considered and workup was based on these. Workup in the emergency department included: CTA abdomen pelvis GI bleed protocol, CBC with differential, CMP, PT/INR, APTT, type and screen, lipase, urinalysis, Hemoccult Laboratory studies interpreted by me personally. White blood cell count normal at 10.8, patient is significantly anemic with hemoglobin of 6.3 and hematocrit of 20.7 (patient's hemoglobin on 02/08 was 10 and prior to that was normal at over 12), platelets normal at 408. Coagulation studies show normal PT, normal INR, PTT mildly low at 21.1. Electrolytes within normal limits except for chronically elevated chloride of 113. Anion gap low at 4.6. BUN is elevated at 26, however it has been elevated in the past but could be indicative of a GI bleed. No JIM. Glucose normal 160. Liver enzymes within normal limits. Bilirubin normal. CRP is elevated at 24.7. CT abdomen pelvis interpreted by me personally. No active extravasation. Patient does appear to have thickening of the bowel wall in the distal colon as well as diverticulitis. Per radiology report, diffuse wall thickening throughout the descending and sigmoid portions of the colon compatible with nonspecific colitis. More prominent eccentric wall thickening in the mid sigmoid colon raises concern for acute diverticulitis. Short interval follow-up indicated to ensure improvement with adequate therapy and exclude underlying neoplasm. Significant atherosclerotic changes without significant mesenteric or renal artery stenosis or occlusion. . Given this, will administer 4.5 mg of IV Zosyn. Patient is actively receiving blood products. Is felt that she would benefit for admission for continued transfusion, IV antibiotics and possibly colonoscopy. I discussed patient's case with Dr. Huffman with hospital medicine service who accepted the patient for admission. Critical Care Critical Care Time Critical Care Time: Yes Attestation: On 03/13/25, the high probability of a clinically significant, sudden or life threatening deterioration of the following system(s) required my full and direct attention, intervention and personal management. The time I documented below is in addition to time spent performing reported procedures but includes the following listed in this critical care notation. Total Time Total Critical Care Time: 35
[2025-03-13] MEDS: 0.9 % SODIUM CHLORIDE 250 ML 25 ML IV (22:52)
[2025-03-13 23:35] LABS: Microscopic, Urine URINE MICROSCOPIC (MICROSCOPIC)
[2025-03-13 23:41] LABS: Bilirubin,Urine Negative (Negative); Color,Urine YELLOW (Yellow); Glucose,Urine (UA) Negative (Negative); Ketones,Urine Negative (Negative); Leukocyte Esterase,Urine Negative (Negative); PH,Urine 6.0 (5.0-8.5); Protein,Urine Negative (Negative); Specific Gravity, Urine 1.010 (1.005-1.030); Urobilinogen,Urine 0.2 EU/dl (0.2)
[2025-03-13 23:45] VITALS: PULSE 64; O2SAT 95
[2025-03-13] MEDS: PIPERACILLIN/TAZO 4.5 GM in 0.9 % SODIUM CHLORIDE 100 ML IV (23:59)
[2025-03-14] VITALS (32 sets, daily range): BP systolic 107–136; BP diastolic 45–76; PULSE 60–87; RESP 17–24; TEMP 36.2–37.6; O2SAT 93–99; BMI 27.5; BMI 27.6; BMI 27.4
[2025-03-14] LABS: WBC,Urine Occasional #/hpf (0-3)
[2025-03-14 00:01] LABS: Bacteria,Urine Trace /lpf; Squamous Epithelial Cell,Urine Occasional #/hpf (0-5)
--- NOTE | 2025-03-14 00:08 | P.HP_ITS ---
<Statement entered by Julien Styles MD - 03/15/25 10:09> Personally evaluated patient and agree with the plan of care as outlined by the [employer]. History of Present Illness *Admission Date: 03/14/25 *Reason for visit:: Bleeding from rectum *History of present illness: This is a 70-year-old female who has a past medical history significant for vitamin B 12 deficiency, migraine headaches, low magnesium, CVA, hyperlipidemia, and hypertension who presents with a chief complaint of dark stools and bright red blood per rectum. Due to patient's symptoms, she presented to the emergency room for evaluation. While in the emergency room, patient's hemoglobin was 6.8. CTA of the abdomen pelvis revealed diffuse wall thickening throughout the descending and sigmoid portions of the colon compatible with nonspecific colitis, more prominent localization of enteric wall thickening in the mid sigmoid colon raises concerns for acute diverticulitis, and significant atherosclerotic changes without significant mesenteric or renal artery stenosis or occlusion. As a result of these findings, hospital medicine was consulted for further management. During my evaluation of the patient, patient states that she has been having bright red blood and dark stools for the past day or so. She reports that she has been having stools every 15 minutes. Patient did check her blood pressure while at home and subjectively she reports a blood pressure of 90. Last Jun, patient had a CVA and was prescribed dual antiplatelet therapy (patient is currently prescribed aspirin and Plavix). She reports no prior endoscopy. She is currently denying any chest pain, lightheadedness, dizziness, hematuria, hematemesis, abdominal pain, nausea, vomiting, shortness of breath, dyspnea, fever, chills, rigors, or headache. Additional pertinent labs obtained include a hemoglobin of 6.3, hematocrit 20.7, red blood cell count of 2.48, chloride of 113, BUN 26, GFR 55, blood glucose 460, calcium 8, C-reactive protein at 24.7, total protein 5.8, and albumin 3.3. [facility] Disclaimer: The information contained in this section may have been updated after the patient was seen, as this information can be updated by other users. Medical History (Updated 03/14/25 @ 00:17 by Bridger Huffman APRN) CVA (cerebral vascular accident) Low serum vitamin B2 Migraines Low magnesium level Hyperlipidemia Hypertension Surgical History Tubal ligation status H/O skin graft Social History Smoking Status: Current every day smoker alcohol intake: never current occupational status: retired Travel in the last 8 weeks?: None Have you lived/traveled outside US in past 30 days?: No Contact w/someone who lives/traveled outside US past 30 days?: No Exposure to someone with infectious disease in past 14 days?: No Do you have a fever (greater than 100.4 F or 38 C)?: No Have you tested positive for COVID-19?: No Exposed to someone with COVID-19 in past 14 days?: No Do you have a sore throat?: No Do you have a cough?: No Do you have any weakness?: No Do you have any diarrhea?: No Are you experiencing any unusual bleeding?: Yes Do you have any muscle aches/pain?: No Do you have any abdominal pain?: No Are you experiencing loss of taste or smell?: No Other Medical History Have you received the Pneumonia Vaccine: No Review of Systems Review of Systems Review of systems:: pertinent systems reviewed and negative unless documented below Constitutional Constitutional: Reports fatigue Eyes Eyes: Reports system reviewed and no additional complaints, except as documented ENT Ears, Nose, Mouth, and Throat: Reports system reviewed and no additional complaints, except as documented *Cardiovascular Cardiovascular: Reports system reviewed and no additional complaints, except as documented *Respiratory Respiratory: Reports system reviewed and no additional complaints, except as documented *Gastrointestinal Gastrointestinal: Reports hematochezia and Reports melena *Genitourinary Genitourinary: Reports system reviewed and no additional complaints, except as documented *Musculoskeletal Musculoskeletal: Reports system reviewed and no additional complaints, except as documented Integumentary/Breasts Skin/Breast: Reports system reviewed and no additional complaints, except as documented *Neurologic Neurologic: Reports system reviewed and no additional complaints, except as documented Psychiatric Psychiatric: Reports system reviewed and no additional complaints, except as documented Endocrine Endocrine: Reports fatigue Hematologic/Lymphatic Hematologic/Lymphatic: Reports system reviewed and no additional complaints, except as documented Allergic/Immunologic Allergic/Immunologic: Reports system reviewed and no additional complaints, except as documented Meds Home Medications and Allergies Home Medications ?Medication ?Instructions ?Recorded ?Confirmed ?Type magnesium oxide 400 mg (241.3 mg 400 mg PO HS 06/07/24 01/03/25 History magnesium) tablet aspirin 81 mg chewable tablet 81 mg PO DAILY blood cir culation 10/20/24 01/03/25 Rx (Children's Aspirin) #100 tabs clopidogrel 75 mg tablet 75 mg PO DAILY 90 days #90 t abs 01/22/25 Rx furosemide 20 mg tablet 20 mg PO QAM fluid retention #30 01/22/25 Rx tabs propranolol 80 mg capsule,24 80 mg PO DAILY blood pres sure 30 02/06/25 Rx hr,extended release days #30 caps New Prescriptions to Start Prescriptions: Allergies Allergy/AdvReac Type Severity Reaction Status Date / Time miconazole (From MONISTAT 7) Allergy Mild Unknown Verified 01/03/25 13:34 allergy reaction Exam Data for Last 24 hours Vital signs and Labs for Last 24 Hours: Temp Pulse Resp BP Pulse Ox O2 Del Method 98.9 F 79 20 137/69 95 Room Air 03/13/25 22:04 03/13/25 22:04 03/13/25 22:04 03/13/25 22:04 03/13/25 22:04 03/13/25 22:04 Laboratory Results - last 24 hr 03/13/25 21:55: WBC 10.8, RBC 2.48 L, Hgb 6.3 L*, Hct 20.7 L*, MCV 83.5, MCH 25.4 L, MCHC 30.4 L, RDW 18.4 H, Plt Count 408, MPV 10.8 H, Neut % (Auto) 74.9, Lymph % (Auto) 13.6, [place] % (Auto) 7.6, Eos % (Auto) 1.9, Baso % (Auto) 0.7, Neut # (Auto) 8.1 H, Lymph # (Auto) 1.5, [place] # (Auto) 0.8, Eos # (Auto) 0.2, Baso # (Auto) 0.1, PT 11.0, INR 0.99, APTT 21.1 L, Sodium 138, Potassium 3.6, Chloride 113 H, Carbon Dioxide 24, Anion Gap 4.6 L, BUN 26 H, Creatinine 1.00, Estimated GFR 55 L, Est GFR ( Amer) 66, Glucose 160 H, Calcium 8.0 L, Total Bilirubin 0.2, AST 14, ALT 8 L, Alkaline Phosphatase 86, C-Reactive Protein 24.7 H, Total Protein 5.8 L, Albumin 3.3 L, Globulin 2.5, Albumin/Globulin Ratio 1.3, Lipase 54 03/13/25 22:00: Blood Type A Positive, Antibody Screen Negative, Crossmatch (AHG) See Detail 03/13/25 22:45: Blood Type Confirm A Positive 03/13/25 23:30: Urine Color Yellow, Urine Appearance Clear, Urine pH 6.0, Ur Specific [place] 1.010, Urine Protein Negative, Urine Glucose (UA) Negative, Urine Ketones Negative, Urine Blood 3+ A, Urine Nitrate Negative, Urine Bilirubin Negative, Urine Urobilinogen 0.2, Ur Leukocyte Esterase Negative, Urine RBC 10-20, Urine WBC Occasional, Ur Squamous Epith Cells Occasional, Urine Bacteria Trace I & O for Last 24 hours: Intake & Output 03/11/25 03/12/25 03/13/25 03/14/25 23:59 23:59 23:59 23:59 Weight 70.307 kg Constitutional Constitutional: no acute distress and cooperative *Routine HEENT Exam Head: Present normocephalic and atraumatic Eye: Present EOMI and PERRL ENT: Present mucous membranes moist *Routine Neck Exam Neck: Present supple, full ROM and trachea midline *Routine Respiratory Exam Respiratory: Present CTA bilaterally, normal respiratory effort, able to speak in complete sentences and symmetric chest movement *Routine Cardiovascular Exam Cardiovascular: Present RRR, Normal S1 and Normal S2 *Routine Abdominal Exam Abdominal: Present soft and normoactive bowel sounds *Routine Rectal Exam Rectal:: deferred *Routine Genitalia Exam Genitalia:: deferred *Routine Extremities Exam Extremities: Present full ROM, pulses intact and normal capillary refill Routine Back/Spine/Pelvis Exam Back/Spine: Present full ROM *Routine Skin Exam Skin: Present intact, dry, pallor, warm and normal turgor *Routine Neurological Exam Neurological: Present alert, oriented X3, CN II-XII intact and normal speech Routine Psychiatric Exam Psychiatric: Present normal affect, normal thought process, cooperative, good insight and good judgment H&P: Result Impressions 70-year-old female who presents with acute blood loss per rectum has never had an endoscopy performed which CTA findings consistent with colitis/diverticulitis. Assessment and Plan *Assessment and plan (1) Acute GI bleeding: Status: Acute Category: Medical Code(s): K92.2 - Gastrointestinal hemorrhage, unspecified (2) Diverticulitis: Status: Acute Category: Medical Code(s): K57.92 - Diverticulitis of intestine, part unspecified, without perforation or abscess without bleeding (3) Colitis: Status: Acute Category: Medical Code(s): K52.9 - Noninfective gastroenteritis and colitis, unspecified (4) Elevated C-reactive protein (CRP): Status: Acute Category: Medical Code(s): R79.82 - Elevated C-reactive protein (CRP) Plan Assessment: Acute GI bleeding Normocytic hypochromic anemia: Due to acute blood loss from the GI tract Hematochezia Melena -Obtain anemia profile -Patient is hemoglobin and hematocrit in January of this year reveals a 10 and 33.9 value -We will type and cross and transfuse 2 units of packed red blood cells - Patient is reporting some dark-colored stools, so I will initiate Protonix drip concern patient has had significant hemoglobin loss - Will perform serial hemoglobin hematocrit every 6 hours - Obtain anemia profile - Will consult GI specialist in the a.m. - Will keep patient n.p.o. until evaluated by GI specialist Diverticulitis Colitis Elevated CRP - This was seen on imaging - As mentioned before patient has had no prior endoscopy - 3.375 g of Zosyn IV every 6 hours - Stool for culture - Obtain procalcitonin in a.m. - Will trend CRP Prior stroke - Will hold patient's dual antiplatelet therapy - SCDs to bilateral lower extremities Plan: Admit patient to the stepdown unit CBC/CRP/CBC daily 2 mg of morphine IV push every 4 hours pain is rib pain 4 mg of Zofran IV push straight hours. Nausea vomiting/full code I will discuss this case with attending physician Dr. Styles and I look forward to more input
--- NOTE | 2025-03-14 00:10 | PC.NURSE ---
Emergent Blood Released documentation: Product Unit Number: [id number] Start Time: 22:40 Stop Time: 00:10 Volume Infused: 250ml Pre Transfusion Vitals: BP: 125/44 HR: 71 RR: 28 O2: 99% Temp: 99.1 Start 22:46 BP: 136/61 HR: 69 RR: 24 O2: 96% Temp: 99.1 5 min 22:51 BP: 136/62 HR: 72 RR: 22 O2: 98% Temp: 99.1 10 min 22:56 BP: 137/62 HR: 69 RR: 22 O2: 100% Temp:98.9 15 min 23.01 BP: 139/61 HR: 71 RR: 22 O2: 100% Temp:98.9 30 min: 23:10 BP: 128/66 HR: 67 RR: 23 O2: 98% Temp: 98.7 45 min: 23:25 BP: 136/61 HR: 71 RR: 24 O2: 96% Temp: 98.7 60 min: 23:46 BP: 139/72 HR: 68 RR: 26 O2:97% Temp: 98.6 Complete: 00:10 BP: 136/60 HR:67 RR:24 O2: 99% Temp: 98.6
--- NOTE | 2025-03-14 01:02 | PC.NURSE ---
Patient arrived to ICU unit via stretcher from ED @00:26
[2025-03-14 01:05] LABS: Occult Blood,Stool Positive (Negative)
--- OUTSIDE RECORDS SUMMARY | 2025-03-14 01:18 | XMS_ITS | Clinical Summary ---
Author Organization [facility] Address [address] 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 No 07/12/2024 Utilities Answer Date Recorded In the past 12 months has e Localist, gas, oil, or water [employer] threatened to shut off services in your [...] - Risk 60-74 years 1-dose series) 2015 [id number] Vaccine (2 - [place] risk series) 04/17/2021 [...] 5.8(H) <5.7 % 07/11/2024 12:40 AM EST [facility] Blood Venous blood specimen / Unknown Venipuncture / Unknown 07/10/2024 9:13 PM EST 07/10/2024 9:25 PM EST Narrative [facility] - 07/11/2024 12:40 AM EST HA1C Interpretive Data: Diagnosis of Diabetes: Diabetic > or = 6.5% Pre-diabetic 5.7 to 6.4% Non-diabetic < or = 5.6% Glycemic Targets for Type I and Type II Diabetics: Non- Adults <7.0% Adults <6.0% Children and Adolescents <7.5% Source: [place] [employer]. Standards of medical care in diabetes,2017. Diabetes Care.2017:40 (suppl 1):S1-S135. HbA1c assay performed by an ion-exchange chromatography method that is certified traceable to the DCCT. us Ramya Cope DO LAB BLOOD ORDERABLES Final Res ult [facility] [address] [place] [address] from Last 3 Months or Most Recently Relevant to Health Maintenance Insurance MEDICARE [place]ICAID-[place] Advance Directives * Full Code (Latest Code Status on File) Date Activated Date Inactivated Comments 07/10/2024 11:34 PM 07/12/2024 4:57 PM Question Answer Comments Patient has decision-making capacity? Yes Care Teams Machine Operator Packaging Relationship Specialty Start Date End Date Michael Simeon MD PCP - General Family Medicine 07/10/24
[2025-03-14] MEDS: PANTOPRAZOLE SODIUM 80 MG in 0.9 % SODIUM CHLORIDE 100 ML 10 MG IV (01:34)
[2025-03-14 03:25] LABS: Hematocrit 29.1 % (37.0-47.0)
[2025-03-14 03:28] LABS: Hemoglobin 9.2 g/dL (12.2-16.2)
[2025-03-14] MEDS: PIPERACILLIN/TAZO 3.375 GM in 0.9 % SODIUM CHLORIDE 50 ML IV ×2 (05:32→12:25)
[2025-03-14 06:05] LABS: Chloride 115 mmol/L (98-107); Potassium 3.4 mmoL/L (3.5-5.1); Sodium 140 mmol/L (136-145)
[2025-03-14 06:06] LABS: Blood Urea Nitrogen 24 mg/dl (7-17); Creatinine Clearance Estimated 59 mL/min (50-200); Creatinine,Serum 0.90 mg/dl (0.52-1.04); Estimated Glomerular Filt Rate 62 ml/min (>60); GFR (African American) 75 ML/MIN (>60); Iron 63 ug/dL (37-170)
[2025-03-14 06:07] LABS: Anion Gap 5.4 mEq/L (5-15); Calcium 8.0 mg/dl (8.4-10.2); Carbon Dioxide 23 mmol/L (22.0-30.0); Glucose 107 mg/dl (74-100)
[2025-03-14 06:10] LABS: Hematocrit 27.7 % (37.0-47.0); Hemoglobin 8.7 g/dL (12.2-16.2); Reticulocyte % (Auto) 2.0 % (0.9-3.2)
[2025-03-14 06:14] LABS: C-Reactive Protein 23.1 mg/L (0-4)
[2025-03-14 06:16] LABS: Total Iron Binding Capacity 317 ug/dL (265-497)
--- NOTE | 2025-03-14 07:10 | EXP.GE.CONS ---
History of Present Illness *Admission Date: 03/14/25 *History of present illness: Mrs. Heredia is a 70-year-old female who presented to the ED with hematochezia and bright red blood per rectum. Her initial hemoglobin was 6.8. Her CAT scan/CTA of the abdomen and pelvis showed diffuse wall thickening throughout the descending and sigmoid colon consistent with nonspecific colitis. There was more significant enteric wall thickening in the mid sigmoid colon. The patient has no abdominal pain. She has had some diarrhea. Her hemoglobin hematocrit dropped to 6.3 and 20.7. She has received 2 units of PRBCs and her hemoglobin increased to 9.2. This morning her hemoglobin was 8.7. Her last bloody stool was last evening upon transition from ED to ICU. The patient has never had a colonoscopy. She is on clopidogrel and baby aspirin. [facility] Disclaimer: The information contained in this section may have been updated after the patient was seen, as this information can be updated by other users. Medical History (Updated 03/14/25 @ 07:09 by Yoni Damon II, MD) CVA (cerebral vascular accident) Low serum vitamin B2 Migraines Low magnesium level Hyperlipidemia Hypertension Surgical History Tubal ligation status H/O skin graft Family History (Updated 03/14/25 @ 01:58 by Erica Lerma RN) Mother Diverticulitis Sister Diverticulitis Social History Smoking Status: Current every day smoker alcohol intake: never current occupational status: retired Travel in the last 8 weeks?: None Have you lived/traveled outside US in past 30 days?: No Contact w/someone who lives/traveled outside US past 30 days?: No Exposure to someone with infectious disease in past 14 days?: No Do you have a fever (greater than 100.4 F or 38 C)?: No Have you tested positive for COVID-19?: No Exposed to someone with COVID-19 in past 14 days?: No Do you have a sore throat?: No Do you have a cough?: No Do you have any weakness?: No Are you experiencing any nausea/vomitting?: No Do you have any diarrhea?: No Are you experiencing any unusual bleeding?: Yes Do you have any muscle aches/pain?: No Do you have any abdominal pain?: No Are you experiencing loss of taste or smell?: No Review of Systems *Neurologic Neurologic: Reports system reviewed and no additional complaints, except as documented Meds Home Medications and Allergies Home Medications ?Medication ?Instructions ?Recorded ?Confirmed ?Type magnesium oxide 400 mg (241.3 mg 400 mg PO HS 06/07/24 03/14/25 History magnesium) tablet aspirin 81 mg chewable tablet 81 mg PO DAILY blood circulation 10/20/24 03/14/25 Rx (Children's Aspirin) #100 tabs clopidogrel 75 mg tablet 75 mg PO DAILY 90 days #90 tabs 01/22/25 03/14/25 Rx furosemide 20 mg tablet 20 mg PO QAM fluid retention #30 01/22/25 03/14/25 Rx tabs propranolol 80 mg capsule,24 80 mg PO DAILY blood pressure 30 02/06/25 03/14/25 Rx hr,extended release days #30 caps New Prescriptions to Start Prescriptions: Allergies Allergy/AdvReac Type Severity Reaction Status Date / Time miconazole (From MONISTAT 7) Allergy Mild Unknown Verified 03/14/25 01:39 allergy reaction Exam (Inpt) Vital signs and Labs for Last 24 Hours: Temp Pulse Resp BP Pulse Ox O2 Del Method 98.7 F 68 17 135/65 94 L Room Air 03/14/25 04:00 03/14/25 06:00 03/14/25 06:00 03/14/25 06:00 03/14/25 06:00 03/14/25 06:51 Laboratory Results - last 24 hr 03/13/25 21:55: WBC 10.8, RBC 2.48 L, Hgb 6.3 L*, Hct 20.7 L*, MCV 83.5, MCH 25.4 L, MCHC 30.4 L, RDW 18.4 H, Plt Count 408, MPV 10.8 H, Neut % (Auto) 74.9, Lymph % (Auto) 13.6, [place] % (Auto) 7.6, Eos % (Auto) 1.9, Baso % (Auto) 0.7, Neut # (Auto) 8.1 H, Lymph # (Auto) 1.5, [place] # (Auto) 0.8, Eos # (Auto) 0.2, Baso # (Auto) 0.1, PT 11.0, INR 0.99, APTT 21.1 L, Sodium 138, Potassium 3.6, Chloride 113 H, Carbon Dioxide 24, Anion Gap 4.6 L, BUN 26 H, Creatinine 1.00, Estimated GFR 55 L, Est GFR ( Amer) 66, Glucose 160 H, Calcium 8.0 L, Total Bilirubin 0.2, AST 14, ALT 8 L, Alkaline Phosphatase 86, C-Reactive Protein 24.7 H, Total Protein 5.8 L, Albumin 3.3 L, Globulin 2.5, Albumin/Globulin Ratio 1.3, Lipase 54 03/13/25 22:00: Blood Type A Positive, Antibody Screen Negative, Crossmatch (AHG) See Detail 03/13/25 22:45: Blood Type Confirm A Positive 03/13/25 23:30: Urine Color Yellow, Urine Appearance Clear, Urine pH 6.0, Ur Specific [place] 1.010, Urine Protein Negative, Urine Glucose (UA) Negative, Urine Ketones Negative, Urine Blood 3+ A, Urine Nitrate Negative, Urine Bilirubin Negative, Urine Urobilinogen 0.2, Ur Leukocyte Esterase Negative, Urine RBC 10-20, Urine WBC Occasional, Ur Squamous Epith Cells Occasional, Urine Bacteria Trace 03/14/25 00:51: Stool Occult Blood Positive A 03/14/25 03:17: Hgb 9.2 L D, Hct 29.1 L 03/14/25 05:24: Hgb 8.7 L, Hct 27.7 L, Retic Count (auto) 2.0, Sodium 140, Potassium 3.4 L, Chloride 115 H, Carbon Dioxide 23, Anion Gap 5.4, BUN 24 H, Creatinine 0.90, Estimated Creat Clear 59, Estimated GFR 62, Est GFR ( Amer) 75, Glucose 107 H D, Calcium 8.0 L, Iron 63, TIBC 317, Iron Saturation 19.13177, C-Reactive Protein 23.1 H I & O for Labs for Last 24 Hours: Intake & Output 03/11/25 03/12/25 03/13/25 03/14/25 23:59 23:59 23:59 23:59 Intake Total 367 / 367 Balance 367 / 367 Weight 155 lb 156 lb 4.924 oz Comments:: Normoactive bowel sounds, soft, nondistended, nontender, benign abdomen Results Labs 03/14/25 05:24 03/14/25 05:24 Labs: Laboratory Results - last 24 hr 03/13/25 21:55: WBC 10.8, RBC 2.48 L, Hgb 6.3 L*, Hct 20.7 L*, MCV 83.5, MCH 25.4 L, MCHC 30.4 L, RDW 18.4 H, Plt Count 408, MPV 10.8 H, Neut % (Auto) 74.9, Lymph % (Auto) 13.6, [place] % (Auto) 7.6, Eos % (Auto) 1.9, Baso % (Auto) 0.7, Neut # (Auto) 8.1 H, Lymph # (Auto) 1.5, [place] # (Auto) 0.8, Eos # (Auto) 0.2, Baso # (Auto) 0.1, PT 11.0, INR 0.99, APTT 21.1 L, Sodium 138, Potassium 3.6, Chloride 113 H, Carbon Dioxide 24, Anion Gap 4.6 L, BUN 26 H, Creatinine 1.00, Estimated GFR 55 L, Est GFR ( Amer) 66, Glucose 160 H, Calcium 8.0 L, Total Bilirubin 0.2, AST 14, ALT 8 L, Alkaline Phosphatase 86, C-Reactive Protein 24.7 H, Total Protein 5.8 L, Albumin 3.3 L, Globulin 2.5, Albumin/Globulin Ratio 1.3, Lipase 54 03/13/25 22:00: Blood Type A Positive, Antibody Screen Negative, Crossmatch (AHG) See Detail 03/13/25 22:45: Blood Type Confirm A Positive 03/13/25 23:30: Urine Color Yellow, Urine Appearance Clear, Urine pH 6.0, Ur Specific [place] 1.010, Urine Protein Negative, Urine Glucose (UA) Negative, Urine Ketones Negative, Urine Blood 3+ A, Urine Nitrate Negative, Urine Bilirubin Negative, Urine Urobilinogen 0.2, Ur Leukocyte Esterase Negative, Urine RBC 10-20, Urine WBC Occasional, Ur Squamous Epith Cells Occasional, Urine Bacteria Trace 03/14/25 00:51: Stool Occult Blood Positive A 03/14/25 03:17: Hgb 9.2 L D, Hct 29.1 L 03/14/25 05:24: Hgb 8.7 L, Hct 27.7 L, Retic Count (auto) 2.0, Sodium 140, Potassium 3.4 L, Chloride 115 H, Carbon Dioxide 23, Anion Gap 5.4, BUN 24 H, Creatinine 0.90, Estimated Creat Clear 59, Estimated GFR 62, Est GFR ( Amer) 75, Glucose 107 H D, Calcium 8.0 L, Iron 63, TIBC 317, Iron Saturation 19.70174, C-Reactive Protein 23.1 H Assessment and Plan *Assessment and plan (1) Lower GI bleeding: Status: Acute Category: Medical Code(s): K92.2 - Gastrointestinal hemorrhage, unspecified (2) Acute blood loss anemia: Status: Acute Category: Medical Code(s): D62 - Acute posthemorrhagic anemia (3) Colitis: Status: Acute Category: Medical Code(s): K52.9 - Noninfective gastroenteritis and colitis, unspecified Plan 1. Acute lower GI bleeding. The patient had marked anemia and did have adequate response to blood transfusion. The patient has had no further bleeding since last evening. The patient is not having abdominal pain and I do not suspect acute diverticulitis but rather acute colitis. Given the fact that she has never had a colonoscopy, I will recommend colonoscopy today with rapid preparation. The patient appears clinically stable. She has been on anticoagulation which is certainly a precipitating factor. Her CRP was 23.1. I will obtain PCR panel as well. Her iron studies are normal (serum iron 63, TIBC 317 and iron saturation 19.8%).
[2025-03-14] MEDS: PEG-ELECTROLYTE SOLN 4000ML BOTTLE 4000 ML PO (07:27)
--- NOTE | 2025-03-14 07:44 | PC.NURSE ---
1st portion of colon prep started @ 0730. Pt educated and verbalized understanding. POC ongoing.
--- NOTE | 2025-03-14 07:47 | HMH.PHAINT1 ---
Pharmacy Intervention Comments: VERIFIED HOME MEDICATION LIST USING LIST FROM OUTPATIENT PHARMACY
[2025-03-14] MEDS: PANTOPRAZOLE 40MG VIAL 40 MG IV (09:07)
[2025-03-14] MEDS: SODIUM CHLORIDE 0.9% 10ML VIAL 10 ML IV (09:07)
--- NOTE | 2025-03-14 09:36 | P.PN_ITS ---
Subjective *Date: 03/14/25 *Time: 11:47 Interval history: Patient states she is doing well this morning. H&H stabilized after 2 units PRBCs, 8.7 this morning. She has had no bloody emesis or BRBPR since admission. Dr. Damon recommended colonoscopy this morning, patient working on bowel prep now. She denies pain, shortness of breath. Medical Exam Vital signs and Labs for Last 24 Hours: Vital Signs Temp Pulse Pulse Resp BP BP Pulse Ox 03/14/25 09:00 03/14/25 08:01 98.4 F 71 22 132/64 93 L 03/14/25 08:00 71 03/14/25 07:33 94 L 03/14/25 07:00 66 19 107/45 L 94 L 03/14/25 06:51 03/14/25 06:00 68 17 135/65 94 L 03/14/25 05:00 03/14/25 04:00 60 03/14/25 04:00 98.7 F 63 22 108/48 L 95 03/14/25 03:59 98.7 F 63 18 108/48 L 94 L 03/14/25 02:59 98.8 F 63 20 126/60 96 03/14/25 02:53 03/14/25 02:17 98.7 F 60 20 122/67 96 03/14/25 02:02 98.7 F 67 22 120/54 L 96 03/14/25 02:00 96 03/14/25 02:00 62 22 117/58 L 97 03/14/25 02:00 98.7 F 62 22 117/58 L 96 03/14/25 01:47 98.8 F 63 22 114/55 L 95 03/14/25 01:32 99.6 F 63 22 114/54 L 95 03/14/25 01:27 99.2 F 62 22 107/59 L 95 03/14/25 01:22 99.0 F 61 21 115/56 L 94 L 03/14/25 01:17 99.0 F 63 18 109/53 L 95 03/14/25 01:00 03/14/25 01:00 98.4 F 64 18 115/54 L 95 03/14/25 00:53 72 03/14/25 00:45 98.4 F 79 24 132/64 96 03/14/25 00:20 98.6 F 67 24 136/60 03/13/25 23:45 64 95 03/13/25 22:04 95 03/13/25 22:04 98.9 F 79 20 137/69 95 O2 Del Method 03/14/25 09:00 Room Air 03/14/25 08:01 Room Air 03/14/25 08:00 03/14/25 07:33 Room Air 03/14/25 07:00 Room Air 03/14/25 06:51 Room Air 03/14/25 06:00 Room Air 03/14/25 05:00 Room Air 03/14/25 04:00 03/14/25 04:00 Room Air 03/14/25 03:59 03/14/25 02:59 03/14/25 02:53 Room Air 03/14/25 02:17 03/14/25 02:02 03/14/25 02:00 Room Air 03/14/25 02:00 Room Air 03/14/25 02:00 Room Air 03/14/25 01:47 03/14/25 01:32 03/14/25 01:27 03/14/25 01:22 03/14/25 01:17 03/14/25 01:00 Room Air 03/14/25 01:00 03/14/25 00:53 03/14/25 00:45 Room Air 03/14/25 00:20 Room Air 03/13/25 23:45 Room Air 03/13/25 22:04 Room Air 03/13/25 22:04 Room Air Intake and Output 03/13/25 03/14/25 03/14/25 23:59 07:59 15:59 Intake Total 367 / 367 Output Total 900 / 900 Balance 367 / -533 -900 / -533 Intake: Intake, Total IV Amount 117 / 117 0.9 % Sodium Chloride 250 ml @ 20 / 20 25 mls/hr IV .Q10H AJITH Rx#: [id number] Pantoprazole Sodium 80 mg In 0. 47 / 47 9 % Sodium Chloride 100 ml @ 10 mls/hr IV .Q10H AJITH Rx#: [id number] Piperacillin/Tazo 3.375 gm In 0 50 / 50 .9 % Sodium Chloride 50 ml @ 100 mls/hr IV Q6H AJITH Rx#: [id number] Intake (Blood Product) Amt 250 / 250 Red Blood Cells Unit 250 / 250 [id number] Output: Output, Urine Amount 500 / 500 Output, Stool Amount 400 / 400 Other: Number of Bowel Movements 1 1 Weight 70.307 kg 70.9 kg Patient Weight 03/14/25 23:59 Weight 70.9 kg Laboratory Results - last 24 hr 03/13/25 21:55: WBC 10.8, RBC 2.48 L, Hgb 6.3 L*, Hct 20.7 L*, MCV 83.5, MCH 25.4 L, MCHC 30.4 L, RDW 18.4 H, Plt Count 408, MPV 10.8 H, Neut % (Auto) 74.9, Lymph % (Auto) 13.6, [place] % (Auto) 7.6, Eos % (Auto) 1.9, Baso % (Auto) 0.7, Neut # (Auto) 8.1 H, Lymph # (Auto) 1.5, [place] # (Auto) 0.8, Eos # (Auto) 0.2, Baso # (Auto) 0.1, PT 11.0, INR 0.99, APTT 21.1 L, Sodium 138, Potassium 3.6, Chloride 113 H, Carbon Dioxide 24, Anion Gap 4.6 L, BUN 26 H, Creatinine 1.00, Estimated GFR 55 L, Est GFR ( Amer) 66, Glucose 160 H, Calcium 8.0 L, Total Bilirubin 0.2, AST 14, ALT 8 L, Alkaline Phosphatase 86, C-Reactive Protein 24.7 H, Total Protein 5.8 L, Albumin 3.3 L, Globulin 2.5, Albumin/Globulin Ratio 1.3, Lipase 54 03/13/25 22:00: Blood Type A Positive, Antibody Screen Negative, Crossmatch (AHG) See Detail 03/13/25 22:45: Blood Type Confirm A Positive 03/13/25 23:30: Urine Color Yellow, Urine Appearance Clear, Urine pH 6.0, Ur Specific [place] 1.010, Urine Protein Negative, Urine Glucose (UA) Negative, Urine Ketones Negative, Urine Blood 3+ A, Urine Nitrate Negative, Urine Bilirubin Negative, Urine Urobilinogen 0.2, Ur Leukocyte Esterase Negative, Urine RBC 10-20, Urine WBC Occasional, Ur Squamous Epith Cells Occasional, Urine Bacteria Trace 03/14/25 00:51: Stool Occult Blood Positive A 03/14/25 03:17: Hgb 9.2 L D, Hct 29.1 L 03/14/25 05:24: Hgb 8.7 L, Hct 27.7 L, Retic Count (auto) 2.0, Sodium 140, Potassium 3.4 L, Chloride 115 H, Carbon Dioxide 23, Anion Gap 5.4, BUN 24 H, Creatinine 0.90, Estimated Creat Clear 59, Estimated GFR 62, Est GFR ( Amer) 75, Glucose 107 H D, Calcium 8.0 L, Iron 63, TIBC 317, Iron Saturation 19.85855, C-Reactive Protein 23.1 H I & O for Labs for Last 24 Hours: Intake & Output 03/11/25 03/12/25 03/13/25 03/14/25 23:59 23:59 23:59 23:59 Intake Total 367 / 367 Output Total 900 / 900 Balance -533 / -533 Weight 70.307 kg 70.9 kg Constitutional: Present no acute distress and cooperative Head: Present atraumatic Eyes: Present as per HPI ENT: Present normal exam Neck: Present normal inspection; Absent full ROM Respiratory: Present wheezes (Expiratory), normal respiratory effort, able to speak in complete sentences and symmetric chest movement; Absent crackles Cardiac: Present Reg Rate and Rhythm; Absent No Murmur GI: Present soft, distention and hyperactive bowel sounds; Absent tenderness Rectal (female): Present deferred (female): Present deferred Extremities: Present normal inspection and full ROM; Absent tenderness or edema Skin: Present intact and dry; Absent rash Neuro: Present alert, awake, oriented x 3 and moves all extremities Assessment and Plan *Assessment and plan (1) Lower GI bleeding: Status: Acute Category: Medical Code(s): K92.2 - Gastrointestinal hemorrhage, unspecified (2) Acute blood loss anemia: Status: Acute Category: Medical Code(s): D62 - Acute posthemorrhagic anemia (3) Colitis: Status: Acute Category: Medical Code(s): K52.9 - Noninfective gastroenteritis and colitis, unspecified (4) Diverticulitis: Status: Acute Category: Medical Code(s): K57.92 - Diverticulitis of intestine, part unspecified, without perforation or abscess without bleeding Plan Ms. Heredia is a 70-year-old female who was admitted from the emergency department for an acute GI bleed, hemoglobin 6.3, positive occult stool. She has a primary medical history of hyperlipidemia, hypertension, previous GI bleed, and stroke. Patient was admitted to the medical surgical floor for management of her anemia, GI bleed. Dr. Damon was consulted for further recommendations. Plan of care is as follows: #GI bleed #Anemia ? Patient admitted to the medical surgical floor for anemia, GI bleed. Stable at this time. Patient received 2 units PRBCs overnight, hemoglobin stable today at 8.7. Patient appears asymptomatic, denies chest pain, lightheadedness, dizziness, hematuria, nausea, vomiting, abdominal pain, shortness of breath, or headache. Vital signs remained stable. ? GI consulted, recommendations for colonoscopy. Patient has never had a colonoscopy before. Will plan for later this afternoon. Iron studies normal (serum iron 63, TIBC 317 and iron saturation 19.8%). ? Patient does take Plavix and aspirin for previous stroke, holding in the setting of GI bleed. ? Serial H&H, CBC ordered for the a.m. #Diverticulitis #Colitis ? Abdomen/pelvis CT shows diffuse wall thickening throughout the descending and sigmoid colon, likely indicative of colitis versus diverticulitis. Patient started on Zosyn 3.375 g IV every 6 hours. Will obtain stool PCR. ? Procalcitonin normal at 0.063, CRP mildly elevated 23.1. Potassium slightly low, 3.4. Will hold on replacement at this time due to bowel preparation. Kidney function within normal limits, creatinine 0.90. \ ? Morphine 2 mg every 4 hours as needed for severe pain. Monitoring for toxicity. ? CMP ordered for the a.m. #History of CVA ? Patient states she has a history of stroke last year, on DAPT therapy (Plavix and aspirin). Holding antiplatelets due to GI bleed at this time. ? Resume propranolol 80 mg daily. ? SCDs for VTE. Patient ambulatory. Full code VTE?SCDs N.p.o. for endoscopy Ambulate as tolerated
[2025-03-14 09:52] LABS: Procalcitonin 0.063 ng/mL (0.0-2.0)
[2025-03-14 10:25] LABS: Vitamin B12 336 pg/mL (239-931)
--- NOTE | 2025-03-14 10:58 | PC.NURSE ---
Report called to Julien on Medical Surgical floor.
--- NOTE | 2025-03-14 11:02 | PC.NURSE ---
Patient taken to Medical Surgical room 213 at this time. Patient taken by Medical surgical staff.
[2025-03-14 11:40] LABS: Folate 9.23 ng/mL
[2025-03-14] MEDS: PROPRANOLOL 20MG TAB 20 MG PO (12:25)
[2025-03-14 12:30] LABS: Ferritin 4.03 ng/ml (11.1-264)
[2025-03-14 13:42] LABS: Hematocrit 29.3 % (37.0-47.0); Hemoglobin 9.3 g/dL (12.2-16.2)
[2025-03-14] MEDS: LACTATED RINGERS 1000ML 1,000 ML 50 ML IV (14:16)
--- NOTE | 2025-03-14 14:26 | P.PCN_ITS ---
[facility] Procedure Note Date: 03/14/25 Time: 14:48 Procedure Note:: Colonoscopy Procedure Report: Colonoscopy with cold snare polypectomy Endoscopist: Yoni Damon II, MD Referring physician: Michael Simeon MD/Julien Styles MD Date of Procedure: March 14, 2025 Equipment: Olympus [id number] adult colonoscope Sedation: MAC sedation Indication: Mrs. Heredia is a 70-year-old female who is admitted and having diagnostic colonoscopy secondary to lower GI bleeding. She presented to the ED with hematochezia and bright red blood per rectum. Her initial hemoglobin was 6.8. Her CAT scan/CTA of the abdomen and pelvis showed diffuse wall thickening throughout the descending and sigmoid colon consistent with nonspecific colitis. There was more significant enteric wall thickening in the mid sigmoid colon. The patient has no abdominal pain. She has had some diarrhea. Her hemoglobin hematocrit dropped to 6.3 and 20.7. She has received 2 units of PRBCs and her hemoglobin increased to 9.2. This morning her hemoglobin was 8.7. Her last bloody stool was last evening upon transition from ED to ICU. The patient has never had a colonoscopy. She is on clopidogrel and baby aspirin. Procedure: Prior to the procedure, a history and physical exam was performed, and patient's medications and allergies were reviewed. The risks, benefits and alternatives of the sedation and procedure were discussed with the patient. All questions were answered and informed consent was obtained. The patient was brought to the procedure room. Patient identification and proposed procedure were verified by the physician and the nurse. The patient was placed in a left lateral decubitus position and the scope was passed under direct vision. Throughout the procedure, the patient's blood pressure, pulse, and oxygen saturations were monitored continuously. The colonoscopy was accomplished without difficulty. The patient tolerated the procedure well. Findings: On digital rectal examination there were small external tags and normal rectal tone. There were no rectal masses. The scope was then inserted through the anal canal into the rectum and advanced to the cecum. The ileocecal valve and appendiceal orifice were identified. The scope was advanced a short distance into the terminal ileum which appeared grossly normal. The scope was then withdrawn into the colon. There were scattered diverticuli throughout the colon but more predominantly in the descending and sigmoid colon. There were no AVMs, ulcerations or colitis. The cecum/ascending and transverse colon were normal in appearance. Within the distal descending and sigmoid colon there was some submucosal edema but not any mucosal loss of vascular pattern or colitis. There were extensive diverticuli in the sigmoid colon. There were 2 polyps in the rectosigmoid/rectum that were removed via cold snare polypectomy (4 and 5 mm). Upon retroflexion within the rectum there were very small grade 1 internal hemorrhoids. Impression: 1. Pandiverticulosis with evidence of submucosal colonic edema in the sigmoid colon suggestive of diverticulitis 2. Diminutive colonic polyps x 2 Plan: I do feel that the patient's hematochezia is secondary to diverticular hemorrhage. Colonic diverticular bleeding is the most common cause of brisk rectal bleeding accounting for 30-50% of cases of significant rectal bleeding. Bleeding from diverticulosis occurs in approximately 15% of patients that have diverticulosis. In this 15 % of patients the bleeding is massive in approximately one third. Many patients with diverticular hemorrhage are older in age and often have other contributing medical conditions including this anticoagulation with the clopidogrel and aspirin. Bleeding does stop spontaneously in 75% of cases but there is still an appreciable risk of rebleeding in the future which is approximately 25-30%. I would hold anticoagulation for 5 days and this will certainly be at the discretion of cardiology. The patient is on Zosyn and I would transition to oral Augmentin. I would encourage psyllium bulking fiber supplementation.
--- NOTE | 2025-03-14 14:31 | P.PNANES_ITS ---
[facility] Disclaimer: The information contained in this section may have been updated after the patient was seen, as this information can be updated by other users. Medical History (Updated 03/14/25 @ 07:09 by Yoni Damon II, MD) CVA (cerebral vascular accident) Low serum vitamin B2 Migraines Low magnesium level Hyperlipidemia Hypertension Surgical History Tubal ligation status H/O skin graft Family History (Updated 03/14/25 @ 01:58 by Erica Lerma RN) Mother Diverticulitis Sister Diverticulitis Social History Smoking Status: Current every day smoker alcohol intake: never substance use type: denies use current occupational status: retired Travel in the last 8 weeks?: None [facility] Anesthesia Checklist Patient Identification Patient Identification: Arm Band Structural Data Admitted From: Inpatient Planned Operative Procedure/s: Colonoscopy Consent for Planned Operative Procedure(s) Verified: Yes Verified Documents: Surgical Consent and History and Physical NPO Status Verified Time NPO: 00:00 Additional verifications Anesthesia Reactions: No Airway Assessment Mallampati Score:: Class II C-Spine Mobility Assessed: Yes TMJ Mobility Assessed: Yes Dentition: Poor Dentition Neurological Assessment Level of Consciousness: Awake, Alert and Appropriate Anesthesia Plan Anesthesia Risk discussed: Yes Anesthesia Plan: Verified ASA Class: III Anesthesia Type: MAC
[2025-03-14 14:41] LABS: Adenovirus F 40/41, stool Not Detected (NotDetected); Clostridium Difficile A/B, PCR Not Detected (NotDetected); Cyclospora Cayetanesis Not Detected (NotDetected); Plesimonas Shigalloides, PCR Not Detected (NotDetected); Salmonella, PCR Not Detected (NotDetected); Shiga-like toxin E coli Not Detected (NotDetected); Shigella Enterovasive E coli Not Detected (NotDetected); Vibrio, PCR Not Detected (NotDetected); Yersinia Entercolitica, PCR Not Detected (NotDetected)
--- NOTE | 2025-03-14 15:23 | P.DS_ITS ---
<Statement entered by Julien Styles MD - 03/15/25 10:09> Personally evaluated patient and agree with the plan of care as outlined by the FREIGHT BRAKEMAN. General Admission date:: 03/14/25 HPI HPI HPI: Mrs. Heredia is a 70-year-old female who presented to the ED with hematochezia and bright red blood per rectum. Her initial hemoglobin was 6.8. Her CAT scan/CTA of the abdomen and pelvis showed diffuse wall thickening throughout the descending and sigmoid colon consistent with nonspecific colitis. There was more significant enteric wall thickening in the mid sigmoid colon. The patient has no abdominal pain. She has had some diarrhea. Her hemoglobin hematocrit dropped to 6.3 and 20.7. She has received 2 units of PRBCs and her hemoglobin increased to 9.2. This morning her hemoglobin was 8.7. Her last bloody stool was last evening upon transition from ED to ICU. The patient has never had a colonoscopy. She is on clopidogrel and baby aspirin. Hospital Course Hospital Course Hospital Course: Ms. Heredia is a 70-year-old female who was admitted from the emergency department for an acute GI bleed, hemoglobin 6.3, positive occult stool. She has a primary medical history of hyperlipidemia, hypertension, previous GI bleed, and stroke. Patient was admitted to the medical surgical floor for management of her anemia, GI bleed. Dr. Damon was consulted for further recommendations. Plan of care is as follows: #GI bleed #Anemia ? Patient admitted to the medical surgical floor for anemia, GI bleed. Stable at this time. Patient received 2 units PRBCs overnight, hemoglobin stable this afternoon at 9.3. Patient appears asymptomatic, denies chest pain, lightheadedness, dizziness, hematuria, nausea, vomiting, abdominal pain, shortness of breath, or headache. Vital signs remained stable. ? GI consulted, recommendations for colonoscopy today. Colonoscopy revealed pandiverticulosis with evidence of submucosal colonic edema in the sigmoid colon suggestive of diverticulitis. No active bleeding was noted, but thought to have likely had a diverticular hemorrhage. Iron studies normal (serum iron 63, TIBC 317 and iron saturation 19.8%). ? Patient does take Plavix and aspirin for previous stroke, will hold DAPT for 5 days. Restart DAPT on 03/19/2025 ? Patient also received IV Venofer infusion before discharge. Ferritin low at 4.03. Patient will follow-up with GI outpatient, started on a iron 325 daily supplement and MiraLAX daily. ? Patient does endorse daily NSAID use. Discussed with patient to try to stay away from using NSAIDs daily, rotate with Tylenol. Patient also endorses she takes NSAIDs for headaches, discussed increased hydration. #Diverticulitis #Colitis ? Abdomen/pelvis CT shows diffuse wall thickening throughout the descending and sigmoid colon, likely indicative of colitis versus diverticulitis. Patient started on Zosyn 3.375 g IV every 6 hours. Transition to Augmentin for total of 5 days. Stool PCR pending. ? Procalcitonin normal at 0.063, CRP mildly elevated 23.1. Potassium slightly low, 3.4. Will hold on replacement at this time due to bowel preparation. Kidney function within normal limits, creatinine 0.90. #History of CVA ? Patient states she has a history of stroke last year, on DAPT therapy (Plavix and aspirin). Holding antiplatelets due to GI bleed at this time. ? Resume propranolol 80 mg daily. Total time spent on discharge 32 minutes in counseling, documentation, chart review, and direct care with patient. Exam Data for Last 24 hours Vital signs and Labs for Last 24 Hours: Temp Pulse Resp BP Pulse Ox O2 Del Method 97.5 F L 87 18 119/72 98 Room Air 03/14/25 14:50 03/14/25 15:00 03/14/25 14:05 03/14/25 15:00 03/14/25 15:00 03/14/25 15:00 Laboratory Results - last 24 hr 03/13/25 21:55: WBC 10.8, RBC 2.48 L, Hgb 6.3 L*, Hct 20.7 L*, MCV 83.5, MCH 25.4 L, MCHC 30.4 L, RDW 18.4 H, Plt Count 408, MPV 10.8 H, Neut % (Auto) 74.9, Lymph % (Auto) 13.6, [place] % (Auto) 7.6, Eos % (Auto) 1.9, Baso % (Auto) 0.7, Neut # (Auto) 8.1 H, Lymph # (Auto) 1.5, [place] # (Auto) 0.8, Eos # (Auto) 0.2, Baso # (Auto) 0.1, PT 11.0, INR 0.99, APTT 21.1 L, Sodium 138, Potassium 3.6, Chloride 113 H, Carbon Dioxide 24, Anion Gap 4.6 L, BUN 26 H, Creatinine 1.00, Estimated GFR 55 L, Est GFR ( Amer) 66, Glucose 160 H, Calcium 8.0 L, Tot al Bilirubin 0.2, AST 14, ALT 8 L, Alkaline Phosphatase 86, C-Reactive Protein 24.7 H, Total Protein 5.8 L, Albumin 3.3 L, Globulin 2.5, Albumin/Globulin Ratio 1.3, Lipase 54 03/13/25 22:00: Blood Type A Positive, Antibody Screen Negative, Crossmatch (AHG) See Detail 03/13/25 22:45: Blood Type Confirm A Positive 03/13/25 23:30: Urine Color Yellow, Urine Appearance Clear, Urine pH 6.0, Ur Specific Duncan 1.010, Urine Protein Negative, Urine Glucose (UA) Negative, Urine Ketones Negative, Urine Blood 3+ A, Urine Nitrate Negative, Urine Bilirubin Negative, Urine Urobilinogen 0.2, Ur Leukocyte Esterase Negative, Urine RBC 10-20, Urine WBC Occasional, Ur Squamous Epith Cells Occasional, Urine Bacteria Trace 03/14/25 00:51: Stool Occult Blood Positive A 03/14/25 03:17: Hgb 9.2 L D, Hct 29.1 L 03/14/25 05:24: Hgb 8.7 L, Hct 27.7 L, Retic Count (auto) 2.0, Sodium 140, Potassium 3.4 L, Chloride 115 H, Carbon Dioxide 23, Anion Gap 5.4, BUN 24 H, Creatinine 0.90, Estimated Creat Clear 59, Estimated GFR 62, Est GFR ( Amer) 75, Glucose 107 H D, Calcium 8.0 L, Iron 63, TIBC 317, Iron Saturation 19.13635, Ferritin 4.03 L, C-Reactive Protein 23.1 H, Vitamin B12 336, Folate 9.23, Procalcitonin 0.063 03/14/25 13:36: Hgb 9.3 L, Hct 29.3 L I & O for Last 24 hours: Intake & Output 03/11/25 03/12/25 03/13/25 03/14/25 23:59 23:59 23:59 23:59 Intake Total 367 / 367 Output Total 900 / 900 Balance -533 / -533 Weight 70.307 kg 70.307 kg Constitutional Constitutional: no acute distress and cooperative *Routine HEENT Exam Head: Present normocephalic Eye: Present EOMI ENT: Present mucous membranes moist *Routine Neck Exam Neck: Present supple and full ROM; Absent JVD *Routine Respiratory Exam Respiratory: Present normal respiratory effort, able to speak in complete sentences and symmetric chest movement; Absent wheezes or crackles *Routine Cardiovascular Exam Cardiovascular: Present RRR; Absent murmur *Routine Abdominal Exam Abdominal: Present soft and normoactive bowel sounds; Absent tenderness or distended *Routine Extremities Exam Extremities: Present full ROM; Absent edema *Routine Skin Exam Skin: Present intact and dry; Absent rash *Routine Neurological Exam Neurological: Present alert, oriented X3 and normal speech Results Data Completed and Pending Labs on day of discharge: Labs from last 24 hours 03/14/25 03/14/25 03/14/25 13:36 05:24 03:17 WBC RBC Hgb 9.3 L 8.7 L 9.2 L D Hct 29.3 L 27.7 L 29.1 L MCV MCH MCHC RDW Plt Count MPV Neut % (Auto) Lymph % (Auto) [place] % (Auto) Eos % (Auto) Baso % (Auto) Neut # (Auto) Lymph # (Auto) [place] # (Auto) Eos # (Auto) Baso # (Auto) Retic Count (auto) 2.0 PT INR APTT Sodium 140 Potassium 3.4 L Chloride 115 H Carbon Dioxide 23 Anion Gap 5.4 BUN 24 H Creatinine 0.90 Estimated Creat Clear 59 Estimated GFR 62 Est GFR ( Amer) 75 Glucose 107 H D Calcium 8.0 L Iron 63 TIBC 317 Iron Saturation 19.82129 Ferritin 4.03 L Total Bilirubin AST ALT Alkaline Phosphatase C-Reactive Protein 23.1 H Total Protein Albumin Globulin Albumin/Globulin Ratio Lipase Vitamin B12 336 Folate 9.23 Procalcitonin 0.063 Urine Color Urine Appearance Urine pH Ur Specific Duncan Urine Protein Urine Glucose (UA) Urine Ketones Urine Blood Urine Nitrate Urine Bilirubin Urine Urobilinogen Ur Leukocyte Esterase Urine RBC Urine WBC Ur Squamous Epith Cells Urine Bacteria Stool Occult Blood Blood Type Blood Type Confirm Antibody Screen Crossmatch (AHG) 03/14/25 03/13/25 03/13/25 00:51 23:30 22:45 WBC RBC Hgb Hct MCV MCH MCHC RDW Plt Count MPV Neut % (Auto) Lymph % (Auto) [place] % (Auto) Eos % (Auto) Baso % (Auto) Neut # (Auto) Lymph # (Auto) [place] # (Auto) Eos # (Auto) Baso # (Auto) Retic Count (auto) PT INR APTT Sodium Potassium Chloride Carbon Dioxide Anion Gap BUN Creatinine Estimated Creat Clear Estimated GFR Est GFR ( Amer) Glucose Calcium Iron TIBC Iron Saturation Ferritin Total Bilirubin AST ALT Alkaline Phosphatase C-Reactive Protein Total Protein Albumin Globulin Albumin/Globulin Ratio Lipase Vitamin B12 Folate Procalcitonin Urine Color Yellow Urine Appearance Clear Urine pH 6.0 Ur Specific Duncan 1.010 Urine Protein Negative Urine Glucose (UA) Negative Urine Ketones Negative Urine Blood 3+ A Urine Nitrate Negative Urine Bilirubin Negative Urine Urobilinogen 0.2 Ur Leukocyte Esterase Negative Urine RBC 10-20 Urine WBC Occasional Ur Squamous Epith Cells Occasional Urine Bacteria Trace Stool Occult Blood Positive A Blood Type Blood Type Confirm A Positive Antibody Screen Crossmatch ([facility]) 03/13/25 03/13/25 22:00 21:55 WBC 10.8 RBC 2.48 L Hgb 6.3 L* Hct 20.7 L* MCV 83.5 MCH 25.4 L MCHC 30.4 L RDW 18.4 H Plt Count 408 MPV 10.8 H Neut % (Auto) 74.9 Lymph % (Auto) 13.6 [place] % (Auto) 7.6 Eos % (Auto) 1.9 Baso % (Auto) 0.7 Neut # (Auto) 8.1 H Lymph # (Auto) 1.5 [place] # (Auto) 0.8 Eos # (Auto) 0.2 Baso # (Auto) 0.1 Retic Count (auto) PT 11.0 INR 0.99 APTT 21.1 L Sodium 138 Potassium 3.6 Chloride 113 H Carbon Dioxide 24 Anion Gap 4.6 L BUN 26 H Creatinine 1.00 Estimated Creat Clear Estimated GFR 55 L Est GFR ( Amer) 66 Glucose 160 H Calcium 8.0 L Iron TIBC Iron Saturation Ferritin Total Bilirubin 0.2 AST 14 ALT 8 L Alkaline Phosphatase 86 C-Reactive Protein 24.7 H Total Protein 5.8 L Albumin 3.3 L Globulin 2.5 Albumin/Globulin Ratio 1.3 Lipase 54 Vitamin B12 Folate Procalcitonin Urine Color Urine Appearance Urine pH Ur Specific Duncan Urine Protein Urine Glucose (UA) Urine Ketones Urine Blood Urine Nitrate Urine Bilirubin Urine Urobilinogen Ur Leukocyte Esterase Urine RBC Urine WBC Ur Squamous Epith Cells Urine Bacteria Stool Occult Blood Blood Type A Positive Blood Type Confirm Antibody Screen Negative Crossmatch (AHG) See Detail DS: Diagnosis Discharge Diagnosis (1) Lower GI bleeding: Status: Acute Code(s): K92.2 - Gastrointestinal hemorrhage, unspecified (2) Acute blood loss anemia: Status: Acute Code(s): D62 - Acute posthemorrhagic anemia (3) Colitis: Status: Acute Code(s): K52.9 - Noninfective gastroenteritis and colitis, unspecified (4) Diverticulitis: Status: Acute Code(s): K57.92 - Diverticulitis of intestine, part unspecified, without perforation or abscess without bleeding Meds Home Medications and Allergies Home Medications ?Medication ?Instructions ?Recorded ?Confirmed ?Type magnesium oxide 400 mg (241.3 mg 400 mg PO HS 06/07/24 03/14/25 History magnesium) tablet clopidogrel 75 mg tablet 75 mg PO DAILY 90 days #90 t abs 01/22/25 03/14/25 Rx Held on 03/14/25. Instructions: Resume on 03/19/25. amoxicillin 875 mg-potassium 1 tab PO BID #8 tabs 03/02 10/24 Rx clavulanate 125 mg tablet aspirin 81 mg chewable tablet 81 mg PO DAILY 03/14/25 03/14/25 History (Children's Aspirin) Held on 03/14/25. Instructions: Resume on 03/19/25. ferrous sulfate 325 mg (65 mg 325 mg PO DAILY #30 tabs 03/14/25 Rx iron) tablet (Iron (ferrous sulfate)) furosemide 20 mg tablet 20 mg PO DAILY 03/14/2503/02 History polyethylene glycol 3350 17 17 g PO DAILY #238 grams 0 03/14/25 Rx gram/dose oral powder (Miralax) propranolol 80 mg capsule,24 80 mg PO DAILY 03/14/25 0 03/14/25 History hr,extended release New Prescriptions to Start Prescriptions: amoxicillin-pot clavulanate Virgen Dawson ferrous sulfate [Iron (ferrous sulfate)] Virgen Dawson polyethylene glycol 3350 [Miralax] Virgen Dawson Allergies Allergy/AdvReac Type Severity Reaction Status Date / Time miconazole (From MONISTAT 7) Allergy Mild Unknown Verified 03/14/25 01:39 allergy reaction Discharge Plan Disposition Patient Disposition: Home, Self-Care Condition: Fair Discharge Order Discharge Orders: Discharge Order (Routine); Ordered 03/14/25 Ordered By: Virgen Dawson Follow up Plan Follow up with: Yoni Damon II, MD [Staff Physician, Gastroenterology] - Enter time for follow up Michael Simeon MD [Staff Physician, Internal Medicine] - Enter time for follow up Prescriptions/Medication Reconciliation: New amoxicillin-pot clavulanate 875-125 mg tablet 1 tab PO BID Qty: 8 0RF ferrous sulfate [Iron (ferrous sulfate)] 325 mg (65 mg iron) tablet 325 mg PO DAILY Qty: 30 0RF polyethylene glycol 3350 [Miralax] 17 gram/dose powder 17 g PO DAILY Qty: 238 0RF Continued magnesium oxide 400 mg (241.3 mg magnesium) tablet 400 mg PO HS Patient Comments: TAKE 1 TABLET BY MOUTH ONCE DAILY AT NIGHT propranolol 80 mg capsule,extended release 24 hr 80 mg PO DAILY furosemide 20 mg tablet 20 mg PO DAILY Held clopidogrel 75 mg tablet 75 mg PO DAILY 90 Days Qty: 90 0RF Hold Instructions: Resume on 03/19/25. aspirin [Children's Aspirin] 81 mg tablet,chewable 81 mg PO DAILY Hold Instructions: Resume on 03/19/25. Problem Reconciliation Problems Reviewed?: Yes Patient Discharge Instructions ACTIVITY: Continue current activity DIET: continue same diet Patient Instructions: Anemia, DI for Gastrointestinal Bleeding, DI for Colitis Print Language: Ethiopian Providers Primary Care Provider: Provider,Referral Admit Provider: Julien Styles Attending Provider: Julien Styles
[2025-03-14] MEDS: IRON SUCROSE COMPLEX 200 MG in 0.9 % SODIUM CHLORIDE 100 ML 220 MG IV (15:28)
== END 2025-03-14 18:23 | disposition home or self-care (01) | DRG 378 ==
LOC: ER 22:20 → ICU 23:47 → 2ND 03-14 09:48
PROVIDERS: Internal Medicine Gastroenterology; Nurse Practitioner Family; Admitting Provider Student in an Organized Health Care Education/Training Program; Emergency Provider Student in an Organized Health Care Education/Training Program; Visit Provider Student in an Organized Health Care Education/Training Program
PROC: 0DJD8ZZ Inspection of Lower Intestinal Tract, Via Natural or Artificial Opening Endoscopic (ICD-10-PCS; CPT 45378; principal; 2025-03-14 13:00)
DX: K57.33 Diverticulitis of large intestine without perforation or abscess with bleeding (principal); D62 Acute posthemorrhagic anemia; I10 Essential (primary) hypertension; E78.5 Hyperlipidemia, unspecified; K52.9 Noninfective gastroenteritis and colitis, unspecified; K63.5 Polyp of colon; F17.200 Nicotine dependence, unspecified, uncomplicated; Z86.73 Personal history of transient ischemic attack (TIA), and cerebral infarction without residual deficits; Z79.82 Long term (current) use of aspirin; Z79.02 Long term (current) use of antithrombotics/antiplatelets; Z88.1 Allergy status to other antibiotic agents; Z79.899 Other long term (current) drug therapy
CPT/HCPCS: 36415; 36430; 74174; 80048; 80053; 81001; 82272; 82607; 82728; 82746; 83540; 83550; 83690; 84145; 84630; 85014; 85018; 85025; 85044; 85610; 85730; 86140; 86850; 87045; 87507; G0328; J1756; J2003; J2470; J2543; J2704; J7050; J7120; P9016; Q9967

== ENCOUNTER 2025-03-20 13:33 | Outpatient (CLI) | payer MEDICARE, MEDICAID, SELFPAY ==
[2025-03-20 16:30] LABS: Hematocrit 32.0 % (37.0-47.0); Hemoglobin 9.9 g/dL (12.2-16.2); Immature Granulocytes % 0.2 %; Mean Corpuscular HGB Conc 30.9 g/dL (31.8-35.4); Mean Corpuscular Hemoglobin 27.1 pg (27.0-31.2); Mean Corpuscular Volume 87.7 fl (81-99); Nucleated Red Blood Cells % 0 %; Platelet Count 514 K/mm3 (142-424); Red Blood Count 3.65 M/mm3 (4.20-5.40); Red Cell Distribution Width-SD 58.6 fL; White Blood Count 9.3 K/mm3 (4.8-10.8)
--- OUTSIDE RECORDS SUMMARY | 2025-03-21 10:51 | XMS_ITS | Clinical Summary ---
Author Organization [facility] Address [address] 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 No 07/12/2024 Utilities Answer Date Recorded In the past 12 months has e [employer], gas, oil, or water [employer] threatened to shut off services in your [...] - Risk 60-74 years 1-dose series) 2015 [id number] Vaccine (2 - Ma[place] risk series) 04/17/2021 [...] 5.8(H) <5.7 % 07/11/2024 12:40 AM EST [facility] Blood Venous blood specimen / Unknown Venipuncture / Unknown 07/10/2024 9:13 PM EST 07/10/2024 9:25 PM EST Narrative [facility] - 07/11/2024 12:40 AM EST HA1C Interpretive Data: Diagnosis of Diabetes: Diabetic > or = 6.5% Pre-diabetic 5.7 to 6.4% Non-diabetic < or = 5.6% Glycemic Targets for Type I and Type II Diabetics: Non- Adults <7.0% Adults <6.0% Children and Adolescents <7.5% Source: [place] Diabetes Association. Standards of medical care in diabetes,2017. Diabetes Care.2017:40 (suppl 1):S1-S135. HbA1c assay performed by an ion-exchange chromatography method that is certified traceable to the DCCT. us Ramya Cope DO LAB BLOOD ORDERABLES Final Res ult [facility] [address] [place] [address] from Last 3 Months or Most Recently Relevant to Health Maintenance Insurance MEDICARE [place]ICAID-[place] Advance Directives * Full Code (Latest Code Status on File) Date Activated Date Inactivated Comments 07/10/2024 11:34 PM 07/12/2024 4:57 PM Question Answer Comments Patient has decision-making capacity? Yes Care Teams Piano Machine Operator Relationship Specialty Start Date End Date Michael Simeon MD PCP - General Family Medicine 07/10/24
== END 2025-03-20 23:59 | disposition home or self-care (01) ==
LOC: LAB.DROPOF 03-21 10:38
PROVIDERS: PCP Nurse Practitioner Family; Visit Provider Nurse Practitioner Family
DX: K92.2 Gastrointestinal hemorrhage, unspecified (principal)
CPT/HCPCS: 85025

== ENCOUNTER 2025-05-10 18:33 | Observation (INO) | payer MEDICARE, MEDICAID, SELFPAY ==
--- NOTE | 2025-05-10 18:27 | ECG_ITS ---
APPROVED REPORT Exam: Resting ECG HR:70 bpm ECG Measurements Heart Rate 70 AXES ND 168 P 86 QRSd 86 QRS 70 QT 406 T 82 QTc 427 Conclusion Normal sinus rhythm Normal axis Normal intervals No STEMI Electronically signed by : John Mckeon, 05/11/2025 00:25:17
[2025-05-10 18:47] VITALS: BP 193/85; PULSE 75; RESP 22; TEMP 36.9; O2SAT 95; BMI 23.3
--- NOTE | 2025-05-10 19:02 | XR_ITS ---
PROCEDURE INFORMATION: Exam: XR Chest Exam date and time: 05/10/2025 7:07 PM Age: 70 years old Clinical indication: Shortness of breath; Additional info: SOA TECHNIQUE: Imaging protocol: Radiologic exam of the chest. Views: 1 view. COMPARISON: CT ANGIO ABD/PEL - GI BLEED 03/13/2025 10:20 PM FINDINGS: Lungs: Unremarkable. No consolidation. Pleural spaces: Unremarkable. No pleural effusion. No pneumothorax. Heart/Mediastinum: Unremarkable. No cardiomegaly. Bones/joints: Unremarkable. IMPRESSION: No acute findings.
--- NOTE | 2025-05-10 19:04 | CT_ITS ---
PROCEDURE INFORMATION: Exam: CT Abdomen And Pelvis With Contrast Exam date and time: 05/10/2025 7:37 PM Age: 70 years old Clinical indication: Other: Bleeding TECHNIQUE: Imaging protocol: Computed tomography of the abdomen and pelvis with contrast. Radiation optimization: All CT scans at this facility use at least one of these dose optimization techniques: automated exposure control; mA and/or kV adjustment per patient size (includes targeted exams where dose is matched to clinical indication); or iterative reconstruction. Contrast material: ISOVUE; Contrast volume: 75 ml; Contrast route: IV; COMPARISON: CT ANGIO ABD/PEL - GI BLEED 03/13/2025 10:20 PM FINDINGS: Liver: Normal. No mass. Gallbladder and biliary ducts: Normal. No calcified stones. No ductal dilation. Pancreas: Normal. No ductal dilation. Spleen: Normal. No splenomegaly. Adrenal glands: Normal. No mass. Kidneys and ureters: Normal. No hydronephrosis. Stomach and bowel: Persistent finding of eccentric wall thickening of the mid sigmoid colon with adjacent area of irregular spiculated soft tissue attenuation measuring approximately 2.5 cm in greatest diameter. Previously visualized diffuse wall thickening throughout the descending and rectosigmoid portions of the colon suspicious for colitis appears to have largely resolved otherwise. Diffuse diverticulosis throughout the distal colon. No evidence of bowel obstruction. Appendix: No evidence of appendicitis. Intraperitoneal space: Unremarkable. No free air. No significant fluid collection. Vasculature: Moderate atherosclerotic calcification throughout the aorta and iliac arteries. No aneurysm or dissection. Lymph nodes: Unremarkable. No enlarged lymph nodes. Urinary bladder: Unremarkable as visualized. Reproductive: Unremarkable as visualized. Bones/joints: Unremarkable. No acute fracture. Soft tissues: Unremarkable. IMPRESSION: Persistent eccentric wall thickening of the sigmoid colon with adjacent 2.5 cm spiculated masslike area of soft tissue attenuation immediately adjacent to the sigmoid. Differential diagnosis would include scar tissue from prior infection/inflammation versus malignancy. Correlation with colonoscopy recommended. Other stable chronic findings as noted.
[2025-05-10 19:10] LABS: Hematocrit 34.7 % (37.0-47.0); Hemoglobin 10.9 g/dL (12.2-16.2); Immature Granulocytes % 0.1 %; Mean Corpuscular HGB Conc 31.4 g/dL (31.8-35.4); Mean Corpuscular Hemoglobin 29.0 pg (27.0-31.2); Mean Corpuscular Volume 92.3 fl (81-99); Nucleated Red Blood Cells % 0 %; Platelet Count 464 K/mm3 (142-424); Red Blood Count 3.76 M/mm3 (4.20-5.40); Red Cell Distribution Width-SD 59.7 fL; White Blood Count 9.6 K/mm3 (4.8-10.8)
[2025-05-10 19:14] LABS: Lactate Venous 1.5 mmol/L (0.4-2.0); VBG HCO3 21.6 mmol/L (23-30); VBG PCO2 36.2 mmol/L (35-51); VBG PH 7.39 mmol/L (7.31-7.41); VBG PO2 81.6 mmol/L (28-40)
--- NOTE | 2025-05-10 19:14 | [facility].EDCP ---
Discharge Plan Disposition Patient Disposition: Admitted Condition: Good Clinical Impressions Clinical Impression: Weakness, ABLA (acute blood loss anemia), Acute GI bleeding Discharge ED Provider: John Mckeon HPI <Sofia Tam (ED), [employer] - Last Filed: 05/10/25 21:52> General Chief Complaint: Shortness of Breath/Dyspnea Stated Complaint: SOB Time Seen by Provider: 05/10/25 18:35 Mode of Arrival: EMS Source of Information: Patient and EMS Description of Symptoms (Recalled from ER Triage Doc. by RN): pt reports shortness of breath since last night. also rectal bleeding. hx of gi bleed in march. on plavix History of Present Illness HPI narrative: 70-year-old female presents to the ED today with complaint of shortness of breath that started last night. She says it has gotten worse since last night and today. She has rectal bleeding that restarted after lunch today. She did have an admission in March for rectal bleeding. She had a colonoscopy and a CT scan. They removed polyps and she got 2 units of packed red blood cells. She does have fatigue and shortness of breath. Related Data Home Medications ?Medication ?Instructions ?Recorded ?Confirmed aspirin 81 mg chewable tablet 81 mg PO DAILY 03/14/25 03/29/25 ([facility]) Previous Rx's ?Medication ?Instructions ?Recorded ferrous sulfate 325 mg (65 mg 325 mg PO DAILY #30 tabs 03/14/25 iron) tablet (Iron (ferrous sulfate)) furosemide 20 mg tablet 20 mg PO DAILY 30 days #30 tabs 04/25/25 clopidogrel 75 mg tablet 75 mg PO DAILY 90 days #90 tabs 04/27/25 propranolol 80 mg capsule,24 See Rx Instructions .Route 05/09/25 hr,extended release .COMPLEX #30 caps Allergies Allergy/AdvReac Type Severity Reaction Status Date / Time miconazole (From MONISTAT 7) Allergy Mild Unknown Verified 03/29/25 11:54 allergy reaction PFSH <Sofia Tam (ED), [employer] INSPECTOR - Last Filed: 05/10/25 21:52> [facility] Disclaimer: The information contained in this section may have been updated after the patient was seen, as this information can be updated by other users. Medical History (Updated 05/10/25 @ 23:24 by John Mike, DO) Diverticulitis Elevated C-reactive protein (CRP) Colitis Acute GI bleeding Paresthesia of left arm Headache CVA (cerebral vascular accident) Low serum vitamin B2 Migraines Low magnesium level Hyperlipidemia Hypertension Surgical History Tubal ligation status H/O skin graft Family History Mother Diverticulitis Sister Diverticulitis Social History Smoking Status: Current every day smoker alcohol intake: never substance use type: denies use current occupational status: retired Travel in the last 8 weeks?: None Have you lived/traveled outside [place] in past 30 days?: No Contact w/someone who lives/traveled outside US past 30 days?: No Exposure to someone with infectious disease in past 14 days?: No Do you have a fever (greater than 100.4 F or 38 C)?: No Have you tested positive for COVID-19?: No Exposed to someone with COVID-19 in past 14 days?: No Do you have a sore throat?: No Do you have a cough?: No Do you have any weakness?: No Do you have any diarrhea?: No Are you experiencing any unusual bleeding?: No Do you have any muscle aches/pain?: No Do you have any abdominal pain?: No Are you experiencing loss of taste or smell?: No Other Medical History Have you received the Flu Vaccine for this season: No Have you received the Pneumonia Vaccine: No <Sofia Tam (ED), [employer] INS[employer]OR - Last Filed: 05/10/25 21:52> ROS Obtained: Yes Systems reviewed as appropriate & no additional complaints except as documented Constitutional Constitutional: Reports as per HPI Physical Exam <Sofia Tam (ED), [employer] INS[employer]OR - Last Filed: 05/10/25 21:52> General General appearance: alert Head Head exam: normocephalic Eye Eye exam: Present PERRL and EOMI ENT ENT exam: Present normal oropharynx and mucous membranes moist Neck Neck exam: Present full ROM and trachea midline Respiratory Respiratory exam: Present respiratory distress Cardiovascular Cardiovascular exam: Present regular rate, normal rhythm, +S1 and +S2 Abdominal Exam Abdominal exam: Present soft and normal bowel sounds Extremities Exam Extremities exam: Present full ROM and normal capillary refill Neurological Exam Neurological exam: Present alert, oriented X3 and normal gait Skin Skin exam: Present warm, dry and intact HEART Score <[facility] (ED), - Last Filed: 05/10/25 21:52> HEART Score HEART Score assessment performed?: No Critical Care <[facility] (ED), [employer] INSPECTOR - Last Filed: 05/10/25 21:52> Critical Care Time Critical Care Time: No Medical Decision Making <[facility] (ED), - Last Filed: 05/10/25 21:52> Jg Inquiry Pt receiving controlled substance: No Jg was queried for this patient: No Vital Signs Vital Signs: 05/10/25 18:47 05/10/25 22:46 Temperature 98.5 F Temperature Source Oral Pulse Rate [Right] 75 Respiratory Rate 22 Blood Pressure 120/67 Blood Pressure [Right Arm] 193/85 H Blood Pressure Mean [Right Arm] 121 02 Sat by Pulse Oximetry 95 95 Oxygen Delivery Method Room Air Lab Data Labs: Lab Results 05/10/25 18:30: WBC 9.6, RBC 3.76 L, Hgb 10.9 L, Hct 34.7 L, MCV 92.3, MCH 29.0, MCHC 31.4 L, RDW 17.6 H, Plt Count 464 H, MPV 10.7 H, Neut % (Auto) 68.4, Lymph % (Auto) 19.8, Owsley % (Auto) 8.7, Eos % (Auto) 1.9, Baso % (Auto) 1.1, Neut # (Auto) 6.6, Lymph # (Auto) 1.9, Owsley # (Auto) 0.8, Eos # (Auto) 0.2, Baso # (Auto) 0.1, PT 10.9, INR 0.98, APTT 20.8 L, D-Dimer 1.15 H, Sodium 138, Potassium 4.5, Chloride 107, Carbon Dioxide 22, Anion Gap 13.5, BUN 18 H, Creatinine 0.80, Estimated Creat Clear 52, Estimated GFR 71, Est GFR ( Amer) 86, Glucose 72 L, Calcium 9.2, Magnesium 2.2, Total Bilirubin 0.7, AST 23, ALT 13, Alkaline Phosphatase 103, Troponin I < 0.01, Total Protein 6.9, Albumin 4.1, Globulin 2.8, Albumin/Globulin Ratio 1.5, Lipase 60 05/10/25 19:06: VBG pH 7.39, VBG pCO2 36.2, VBG pO2 81.6 H, VBG HCO3 21.6 L, VBG Total CO2 22.7 L, VBG O2 Saturation 96.5 H, VBG Base Excess -3.3 L, VBG Lactic Acid 1.5 05/10/25 22:43: Hgb 9.6 L D, Hct 30.4 L 05/10/25 22:43 05/10/25 18:30 Response Orders (Tests/Meds): ED MEDICATIONS Generic Name Dose Route Start Last Admin Trade Name Fresaundra PRN Reason Stop Dose Admin Sodium Chloride 10 ml 05/10/25 19:04 Sodium Chloride 0.9% 10ml Vial IV 06/09/25 19:03 NEEDED PRN dilute protonix Sodium Chloride 10 ml 05/10/25 21:20 05/10/25 21:20 Sodium Chloride 0.9% 10ml Syr (Rad Only) IV 06/09/25 21:19 10 ml NEEDED PRN Administration Maintain IV Site Sodium Chloride 10 ml 05/10/25 21:21 05/10/25 21:21 Sodium Chloride 0.9% 10ml Syr (Rad Only) IV 06/09/25 21:20 10 ml NEEDED PRN Administration Maintain IV Site Discontinued Medications Generic Name Dose Route Start Last Admin Trade Name Sahara PRN Reason Stop Dose Admin Iopamidol 160 ml 05/10/25 21:20 05/10/25 21:20 Iopamidol-370 (76%);100ml Bottle IV 05/10/25 21:21 160 ml ONCE ONE Administration Pantoprazole Sodium 40 mg 05/10/25 19:04 05/10/25 19:20 Pantoprazole 40mg Vial IV 05/10/25 19:05 40 mg ONCE ONE Administration Sodium Chloride 50 ml 05/10/25 21:20 05/10/25 21:20 0.9 % Sodium Chloride 50 Ml Vial IV 05/10/25 21:21 50 ml ONCE ONE Administration ORDERS Category Date Time Status CT abdomen pelvis w con Stat Cat Scan 05/10/25 19:[address] angio chest PE protocol Stat Cat Scan 05/10/25 19:35 Completed Chest XR -- portable [XR chest portable] Stat Exams 05/10/25 19:02 Completed Complete Blood Count Auto Diff Stat Lab 05/10/25 18:30 Completed Comprehensive Metabolic Panel Stat Lab 05/10/25 18:30 Completed D-Dimer Stat Lab 05/10/25 18:30 Completed Hemoglobin and Hematocrit Stat Lab 05/10/25 22:43 Completed Lipase Stat Lab 05/10/25 18:30 Completed Magnesium Stat Lab 05/10/25 18:30 Completed PT INR [Prothrombin Time INR] Stat Lab 05/10/25 18:30 Completed PTT [Activated Partial Thrombo Time] Stat Lab 05/10/25 18:30 Completed Trop I [Troponin I] Stat Lab 05/10/25 18:30 Completed Troponin I Q3H Lab 05/11/25 01:15 Ordered VBG [Venous Blood Gas] Stat RT 05/10/25 19:06 Completed MDM Narrative Medical Decision Narrative: patient is a 70-year-old female presenting to the emergency department for evaluation of possible GI bleed and shortness of breath. Patient is hemodynamically stable and nontoxic-appearing upon arrival, afebrile. Differential diagnosis includes GI bleed, diverticulitis, anemia, among others. Workup will be conducted with hematologic labs, specific imaging. Initial inventions include crystalloid bolus, analgesics. Initial workup reviewed by me hematologic labs are remarkable for White cell count of 9.6, slight anemia at 10.9 and 34.7, BUN of 18 normal creatinine, normal troponin less than 0.01 normal lipase at 60 otherwise normal nonactionable labs.We are still awaiting the CTA to come back. Patient has had frequent GI bleeds but she is going to need a another colonoscopy.Her CT abdomen shows some thickening of the sigmoid colon with a spiculated masslike area of soft tissue close to the sigmoid. Continue to wait for CTA result. <John Mckeon, - Last Filed: 05/10/25 23:24> Medical Records Medical records reviewed: Yes I reviewed the patient's medical records. Vital Signs Vital Signs: 05/10/25 18:47 05/10/25 22:46 Temperature 98.5 F Temperature Source Oral Pulse Rate [Right] 75 Respiratory Rate 22 Blood Pressure 120/67 Blood Pressure [Right Arm] 193/85 H Blood Pressure Mean [Right Arm] 121 02 Sat by Pulse Oximetry 95 95 Oxygen Delivery Method Room Air Lab Data Labs: Lab Results 05/10/25 18:30: WBC 9.6, RBC 3.76 L, Hgb 10.9 L, Hct 34.7 L, MCV 92.3, MCH 29.0, MCHC 31.4 L, RDW 17.6 H, Plt Count 464 H, MPV 10.7 H, Neut % (Auto) 68.4, Lymph % (Auto) 19.8, Owsley % (Auto) 8.7, Eos % (Auto) 1.9, Baso % (Auto) 1.1, Neut # (Auto) 6.6, Lymph # (Auto) 1.9, Owsley # (Auto) 0.8, Eos # (Auto) 0.2, Baso # (Auto) 0.1, PT 10.9, INR 0.98, APTT 20.8 L, D-Dimer 1.15 H, Sodium 138, Potassium 4.5, Chloride 107, Carbon Dioxide 22, Anion Gap 13.5, BUN 18 H, Creatinine 0.80, Estimated Creat Clear 52, Estimated GFR 71, Est GFR ( Amer) 86, Glucose 72 L, Calcium 9.2, Magnesium 2.2, Total Bilirubin 0.7, AST 23, ALT 13, Alkaline Phosphatase 103, Troponin I < 0.01, Total Protein 6.9, Albumin 4.1, Globulin 2.8, Albumin/Globulin Ratio 1.5, Lipase 60 05/10/25 19:06: VBG pH 7.39, VBG pCO2 36.2, VBG pO2 81.6 H, VBG HCO3 21.6 L, VBG Total CO2 22.7 L, VBG O2 Saturation 96.5 H, VBG Base Excess -3.3 L, VBG Lactic Acid 1.5 05/10/25 22:43: Hgb 9.6 L D, Hct 30.4 L Response Orders (Tests/Meds): ED MEDICATIONS Generic Name Dose Route Start Last Admin Trade Name Freq PRN Reason Stop Dose Admin Sodium Chloride 10 ml 05/10/25 19:04 Sodium Chloride 0.9% 10ml Vial IV 06/09/25 19:03 NEEDED PRN dilute protonix Sodium Chloride 10 ml 05/10/25 21:20 05/10/25 21:20 Sodium Chloride 0.9% 10ml Syr (Rad Only) IV 06/09/25 21:19 10 ml NEEDED PRN Administration Maintain IV Site Sodium Chloride 10 ml 05/10/25 21:21 05/10/25 21:21 Sodium Chloride 0.9% 10ml Syr (Rad Only) IV 06/09/25 21:20 10 ml NEEDED PRN Administration Maintain IV Site Discontinued Medications Generic Name Dose Route Start Last Admin Trade Name Jobyq PRN Reason Stop Dose Admin Iopamidol 160 ml 05/10/25 21:20 05/10/25 21:20 Iopamidol-370 (76%);100ml Bottle IV 05/10/25 21:21 160 ml ONCE ONE Administration Pantoprazole Sodium 40 mg 05/10/25 19:04 05/10/25 19:20 Pantoprazole 40mg Vial IV 05/10/25 19:05 40 mg ONCE ONE Administration Sodium Chloride 50 ml 05/10/25 21:20 05/10/25 21:20 0.9 % Sodium Chloride 50 Ml Vial IV 05/10/25 21:21 50 ml ONCE ONE Administration ORDERS Category Date Time Status CT abdomen pelvis w con Stat Cat Scan 05/10/25 19:[address] angio chest PE protocol Stat Cat Scan 05/10/25 19:35 Completed Chest XR -- portable [XR chest portable] Stat Exams 05/10/25 19:02 Completed Complete Blood Count Auto Diff Stat Lab 05/10/25 18:30 Completed Comprehensive Metabolic Panel Stat Lab 05/10/25 18:30 Completed D-Dimer Stat Lab 05/10/25 18:30 Completed Hemoglobin and Hematocrit Stat Lab 05/10/25 22:43 Completed Lipase Stat Lab 05/10/25 18:30 Completed Magnesium Stat Lab 05/10/25 18:30 Completed PT INR [Prothrombin Time INR] Stat Lab 05/10/25 18:30 Completed PTT [Activated Partial Thrombo Time] Stat Lab 05/10/25 18:30 Completed Trop I [Troponin I] Stat Lab 05/10/25 18:30 Completed Troponin I Q3H Lab 05/11/25 01:15 Ordered VBG [Venous Blood Gas] Stat RT 05/10/25 19:06 Completed ECG Data Tracing #1: Attestation: I reviewed this ECG and interpreted as documented below: ECG Narrative: EKG personally interpreted by me demonstrates normal sinus rhythm at a rate of 70 bpm, normal axis, no TN prolongation, narrow QRS, no QTc prolongation. No ST elevation or depression. No overt signs of ischemia or arrhythmia. MDM Narrative Medical Decision Narrative: patient is a 70-year-old female presenting to the emergency department for evaluation of possible GI bleed and shortness of breath. Patient is hemodynamically stable and nontoxic-appearing upon arrival, afebrile. Differential diagnosis includes GI bleed, diverticulitis, anemia, among others. Workup will be conducted with hematologic labs, specific imaging. Initial inventions include crystalloid bolus, analgesics. Initial workup reviewed by me hematologic labs are remarkable for White cell count of 9.6, slight anemia at 10.9 and 34.7, BUN of 18 normal creatinine, normal troponin less than 0.01 normal lipase at 60 otherwise normal nonactionable labs.We are still awaiting the CTA to come back. Patient has had frequent GI bleeds but she is going to need a another colonoscopy.Her CT abdomen shows some thickening of the sigmoid colon with a spiculated masslike area of soft tissue close to the sigmoid. Continue to wait for CTA result. I was consulted by the RORY, and we discussed the complexity of problems being addressed. I approved the treatment and management plan for this patient's care in the emergency department, thus performing a substantive portion of the medical decision making. John Mckeon DO Is Dr. Mckeon. I agree with RORY note above. Essentially this is a 70-year-old female patient with a past medical history of hypertension, hyperlipidemia, vitamin B12 deficiency, prior stroke for which she is on dual antiplatelet therapy with aspirin and Plavix who is presenting to the emergency department today for evaluation of weakness in the setting of GI bleeding. She tells me that she has had approximate 2 to 3 days of melena and bright red blood per rectum. She had very similar symptoms to this back in March of this year and was admitted to the hospital where she underwent colonoscopy with Dr. Damon. He found that there was basically diana colitis with diverticulitis and diverticular bleeding. The patient was significantly anemic with a hemoglobin less than 7. She ultimately was hemostatic at the time of discharge and has remained hemostatic since that time. She Rene presents today with the complaint of recurrent melena and bright red blood per rectum as well as profound weakness. Workup was initiated with hematologic labs as well as coagulation studies and a CMP. Labs were personally interpreted by me and demonstrated and actually improved hemoglobin from prior at 10.9 and a hematocrit of 34.7. Coagulation studies are within relative normal limits. VBG showed no evidence of respiratory acidosis or hypercapnia. The patient has no significant electrolyte derangements or evidence of acute kidney injury. Initial troponin is less than 0.01. We did proceed with a CT PE study secondary to the weakness and subjective dyspnea she was having as well as a CT scan of the abdomen and pelvis. CT PE study was personally interpreted by me and demonstrates no saddle pulmonary embolism. Official radiology read is in agreement and states there is no acute abnormality. CT scan of the abdomen and pelvis was personally interpreted by me and demonstrates no large pneumoperitoneum. Official radiology read states that there is persistent eccentric wall thickening of the sigmoid colon with an adjacent 2-1/2 cm spiculated masslike area and soft tissue attenuation immediately adjacent to the sigmoid for which the differential includes scar tissue, infection, inflammation, or malignancy. They have recommended correlation with colonoscopy. On repeat evaluation of the patient she states that she still feels symptomatic. She has had an episode of bloody stools while here in the emergency department. I decided to obtain a repeat H&H and found that her hemoglobin dropped from 10.9-9.6. Given that she is having significant symptoms and has had a 1.3 drop in her hemoglobin I do feel that she would benefit from admission for hemodynamic monitoring and serial H&H's as well as for evaluation by gastroenterology in the morning. Therefore I had an interactive discussion with the internal medicine service who agreed to evaluate the patient in the emergency department. After our discussion and their evaluation they have agreed to admit the patient to their service and except primary responsibility the patient moving forward.
[2025-05-10 19:16] LABS: Alanine Aminotransferase 13 U/L (12-78); Albumin Level 4.1 g/dl (3.5-5.0); Albumin/Globulin Ratio 1.5 (1.1-1.8); Alkaline Phosphatase 103 U/L (38-126); Anion Gap 13.5 mEq/L (5-15); Aspartate Amino Transferase 23 U/L (14-36); Bilirubin,Total 0.7 mg/dl (0.2-1.3); Blood Urea Nitrogen 18 mg/dl (7-17); Calcium 9.2 mg/dl (8.4-10.2); Carbon Dioxide 22 mmol/L (22.0-30.0); Chloride 107 mmol/L (98-107); Creatinine Clearance Estimated 52 mL/min (50-200); Creatinine,Serum 0.80 mg/dl (0.52-1.04); Estimated Glomerular Filt Rate 71 ml/min (>60); GFR (African American) 86 ML/MIN (>60); Globulin 2.8 g/dL (1.3-3.2); Glucose 72 mg/dl (74-100); Potassium 4.5 mmoL/L (3.5-5.1); Sodium 138 mmol/L (136-145); Total Protein,Serum 6.9 g/dl (6.3-8.2)
[2025-05-10 19:18] LABS: INR 0.98 (0.9-1.1); Prothrombin Time 10.9 seconds (10.1-12.5)
[2025-05-10] MEDS: PANTOPRAZOLE 40MG VIAL 40 MG IV (19:20)
[2025-05-10 19:28] LABS: Troponin I < 0.01 ng/ml (0.00-0.034)
[2025-05-10 19:32] LABS: D-Dimer 1.15 ug/mL (0.0-0.5)
--- NOTE | 2025-05-10 19:35 | CT_ITS ---
PROCEDURE INFORMATION: Exam: CTA Chest With Contrast Exam date and time: 05/10/2025 8:48 PM Age: 70 years old Clinical indication: Shortness of breath; Additional info: Elevated d-dimer TECHNIQUE: Imaging protocol: Computed tomographic angiography of the chest with contrast. Exam focused on the arteries. 3D rendering (Not supervised by radiologist): MIP and/or 3D reconstructed images were created by the technologist. Radiation optimization: All CT scans at this facility use at least one of these dose optimization techniques: automated exposure control; mA and/or kV adjustment per patient size (includes targeted exams where dose is matched to clinical indication); or iterative reconstruction. Contrast material: ISOVUE; Contrast volume: 70 ml; Contrast route: INTRAVENOUS (IV); COMPARISON: CR XR CHEST PORTABLE 05/10/2025 7:07 PM FINDINGS: Pulmonary arteries: Normal. No pulmonary emboli. Aorta: Unremarkable. No aortic aneurysm. No aortic dissection. Lungs: Symmetric mild subpleural parenchymal opacities in the lung apices. These appears similar to prior CT C-spine from 2023. No significant pulmonary consolidation. Small right middle lobe calcified granuloma Pleural spaces: Unremarkable. No pneumothorax. No pleural effusion. Heart: Unremarkable. No cardiomegaly. No pericardial effusion. Lymph nodes: Unremarkable. No enlarged lymph nodes. Bones/joints: Moderate multilevel degenerative disc changes throughout the thoracic spine. No vertebral body compression. No acute fracture. Soft tissues: Unremarkable. IMPRESSION: No acute abnormality
[2025-05-10 19:37] LABS: Activated Partial Thrombo Time 20.8 seconds (22.8-30.6); Lipase 60 U/L (23-300); Magnesium 2.2 mg/dl (1.6-2.3)
[2025-05-10] MEDS: 0.9 % SODIUM CHLORIDE 50 ML VIAL IV (21:20)
[2025-05-10] MEDS: SODIUM CHLORIDE 0.9% 10ML SYR (RAD ONLY) 10 ML IV ×2 (21:20→21:21)
[2025-05-10] MEDS: IOPAMIDOL-370 (76%);100ML BOTTLE 160 ML IV (21:20)
[2025-05-10 22:46] VITALS: BP 120/67; O2SAT 95
[2025-05-10 22:48] LABS: Hematocrit 30.4 % (37.0-47.0)
[2025-05-10 22:52] LABS: Hemoglobin 9.6 g/dL (12.2-16.2)
[2025-05-10 23:43] VITALS: BP 167/86; PULSE 67; RESP 18; TEMP 36.6; O2SAT 93
--- NOTE | 2025-05-10 23:43 | P.HP_ITS ---
<Statement entered by Julien Styles MD - 05/11/25 11:25> Agree with plan of care as outlined by the BOILER ROOM OPERATOR. History of Present Illness *Admission Date: 05/10/25 *Reason for visit:: Shortness of breath and bright red blood per rectum *History of present illness: This is a 70-year-old female who is known to our service line and has a past medical history significant for diverticulosis/diverticulitis, colitis, CVA (currently on DAPT therapy), headaches, vitamin B2 deficiency, migraine headaches, hyperlipidemia, and hypertension who presents with a chief complaint of shortness of air and bright red blood per rectum. Due to patient's symptoms, she presented to the emergency room for evaluation. While in the emergency room, CT scan of the abdomen pelvis revealed persistent eccentric wall thickening of the sigmoid colon with adjacent 2.5 cm speculated masslike area of soft tissue attenuation immediately adjacent to the sigmoid. Patient recently underwent colonoscopy by Dr. Humphries and she was noted to have diverticulosis. CT scan of the chest was negative for any acute intrathoracic or cardiopulmonary process. Patient did have a repeat hemoglobin that was decreased from the initial value while in the emergency room, so patient has been admitted by medicine for further management. During my evaluation of the patient, patient states that she has been experiencing upper respiratory tract infection symptoms since last week. She reports today she started having increased sinus pressure. Moreover, patient voices having shortness of breath with exertion. She required additional oxygen while in emergency room and is currently independent of oxygen at home. She reports that her shortness of air got worse last night. Overall, patient mentions having 4 episodes of bright red blood per rectum. She was recently admitted for diverticulosis/diverticulitis and given IV administration of antibiotics. She was encouraged to hold her dual antiplatelet therapy for 5 days-patient did follow directions and she is currently taking her dual antiplatelet therapy as prescribed. Review of CT scan of the abdomen pelvis on previous admission did not reveal any masslike structures nor did GI specialist speak of any masslike structures with direct visualization of the colon. Patient also mention having a nonfocal headache. She is currently denying any chest pain, lightheadedness, dizziness, fever, chills, rigors, PND, orthopnea, s welling in lower extremities, nausea, vomiting, or diarrhea. Additional pertinent vitals obtained include a white blood cell count of 3.76, hemoglobin 9.6, hematocrit 30.4, platelet count of 464, INR of 1.15, BUN of 18, and blood glucose of 72. [facility] Disclaimer: The information contained in this section may have been updated after the patient was seen, as this information can be updated by other users. Medical History (Updated 05/10/25 @ 23:53 by Bridger Huffman APRN) Diverticulitis Elevated C-reactive protein (CRP) Colitis Acute GI bleeding Paresthesia of left arm Headache CVA (cerebral vascular accident) Low serum vitamin B2 Migraines Low magnesium level Hyperlipidemia Hypertension Surgical History Tubal ligation status H/O skin graft Family History Mother Diverticulitis Sister Diverticulitis Social History Smoking Status: Current every day smoker alcohol intake: never substance use type: denies use current occupational status: retired Travel in the last 8 weeks?: None Have you lived/traveled outside [place] in past 30 days?: No Contact w/someone who lives/traveled outside [place] past 30 days?: No Exposure to someone with infectious disease in past 14 days?: No Do you have a fever (greater than 100.4 F or 38 C)?: No Have you tested positive for COVID-19?: No Exposed to someone with COVID-19 in past 14 days?: No Do you have a sore throat?: No Do you have a cough?: No Do you have any weakness?: No Do you have any diarrhea?: No Are you experiencing any unusual bleeding?: No Do you have any muscle aches/pain?: No Do you have any abdominal pain?: No Are you experiencing loss of taste or smell?: No Other Medical History Have you received the Flu Vaccine for this season: No Have you received the Pneumonia Vaccine: No Review of Systems Review of Systems Review of systems:: pertinent systems reviewed and negative unless documented below Constitutional Constitutional: Reports fatigue Eyes Eyes: Reports system reviewed and no additional complaints, except as documented ENT Ears, Nose, Mouth, and Throat: Reports system reviewed and no additional complaints, except as documented *Cardiovascular Cardiovascular: Reports system reviewed and no additional complaints, except as documented, Reports dyspnea and Reports dyspnea on exertion *Respiratory Respiratory: Reports dyspnea and Reports dyspnea on exertion *Gastrointestinal Gastrointestinal: Reports hematochezia *Genitourinary Genitourinary: Reports system reviewed and no additional complaints, except as documented *Musculoskeletal Musculoskeletal: Reports system reviewed and no additional complaints, except as documented Integumentary/Breasts Skin/Breast: Reports system reviewed and no additional complaints, except as documented *Neurologic Neurologic: Reports system reviewed and no additional complaints, except as documented Psychiatric Psychiatric: Reports system reviewed and no additional complaints, except as documented Endocrine Endocrine: Reports fatigue Hematologic/Lymphatic Hematologic/Lymphatic: Reports system reviewed and no additional complaints, except as documented Allergic/Immunologic Allergic/Immunologic: Reports system reviewed and no additional complaints, except as documented Meds Home Medications and Allergies Home Medications ?Medication ?Instructions ?Recorded ?Confirmed ?Type aspirin 81 mg chewable tablet 81 mg PO DAILY 03/14/25 03/29/25 History (Children's Aspirin) ferrous sulfate 325 mg (65 mg 325 mg PO DAILY #30 tabs 03/14/25 03/29/25 Rx iron) tablet (Iron (ferrous sulfate)) furosemide 20 mg tablet 20 mg PO DAILY 30 days #30 t abs 04/25/25 Rx clopidogrel 75 mg tablet 75 mg PO DAILY 90 days #90 t abs 04/27/25 Rx propranolol 80 mg capsule,24 See Rx Instructions .Rout e 05/09/25 Rx hr,extended release .COMPLEX #30 caps New Prescriptions to Start Prescriptions: Allergies Allergy/AdvReac Type Severity Reaction Status Date / Time miconazole (From MONISTAT 7) Allergy Mild Unknown Verified 03/29/25 11:54 allergy reaction Exam Data for Last 24 hours Vital signs and Labs for Last 24 Hours: Temp Pulse Resp BP Pulse Ox O2 Del Method 98.5 F 75 22 120/67 95 Room Air 05/10/25 18:47 05/10/25 18:47 05/10/25 18:47 05/10/25 22:46 05/10/25 22:46 05/10/25 18:47 Laboratory Results - last 24 hr 05/10/25 18:30: WBC 9.6, RBC 3.76 L, Hgb 10.9 L, Hct 34.7 L, MCV 92.3, MCH 29.0, MCHC 31.4 L, RDW 17.6 H, Plt Count 464 H, MPV 10.7 H, Neut % (Auto) 68.4, Lymph % (Auto) 19.8, [place] % (Auto) 8.7, Eos % (Auto) 1.9, Baso % (Auto) 1.1, Neut # (Auto) 6.6, Lymph # (Auto) 1.9, [place] # (Auto) 0.8, Eos # (Auto) 0.2, Baso # (Auto) 0.1, PT 10.9, INR 0.98, APTT 20.8 L, D-Dimer 1.15 H, Sodium 138, Potassium 4.5, Chloride 107, Carbon Dioxide 22, Anion Gap 13.5, BUN 18 H, Creatinine 0.80, Estimated Creat Clear 52, Estimated GFR 71, Est GFR ( Amer) 86, Glucose 72 L, Calcium 9.2, Magnesium 2.2, Total Bilirubin 0.7, AST 23, ALT 13, Alkaline Phosphatase 103, Troponin I < 0.01, Total Protein 6.9, Albumin 4.1, Globulin 2.8, Albumin/Globulin Ratio 1.5, Lipase 60 05/10/25 19:06: VBG pH 7.39, VBG pCO2 36.2, VBG pO2 81.6 H, VBG HCO3 21.6 L, VBG Total CO2 22.7 L, VBG O2 Saturation 96.5 H, VBG Base Excess -3.3 L, VBG Lactic Acid 1.5 05/10/25 22:43: Hgb 9.6 L D, Hct 30.4 L I & O for Last 24 hours: Intake & Output 05/07/25 05/08/25 05/09/25 05/10/25 23:59 23:59 23:59 23:59 Weight 63.503 kg Constitutional Constitutional: no acute distress, thin and cooperative *Routine HEENT Exam Head: Present normocephalic and atraumatic Eye: Present EOMI and PERRL ENT: Present mucous membranes moist *Routine Neck Exam Neck: Present supple, full ROM and trachea midline *Routine Respiratory Exam Respiratory: Present wheezes, diminished air movement, able to speak in complete sentences and symmetric chest movement Comments: Patient has expiratory wheezing bilaterally *Routine Cardiovascular Exam Cardiovascular: Present RRR and Normal S1 *Routine Abdominal Exam Abdominal: Present soft and normoactive bowel sounds *Routine Rectal Exam Rectal:: deferred *Routine Genitalia Exam Genitalia:: deferred *Routine Extremities Exam Extremities: Present full ROM, pulses intact and normal capillary refill Routine Back/Spine/Pelvis Exam Back/Spine: Present full ROM *Routine Skin Exam Skin: Present intact, dry, warm and normal turgor *Routine Neurological Exam Neurological: Present alert, oriented X3, CN II-XII intact, moving all extremities and normal speech Routine Psychiatric Exam Psychiatric: Present normal affect, normal thought process, cooperative, good insight and good judgment H&P: Result Impressions 70-year-old female presents with shortness of air and bright red blood per rectum. Patient has a greater than 50-year history of cigarette smoking but no formal diagnosis of COPD. Patient was noted to be acutely hypoxic while in the emergency room. Patient did have a new finding on imaging that shows a potential masslike structure that was not identified on imaging before nor on direct visualization of the colon. Assessment and Plan *Assessment and plan (1) Acute GI bleeding: Status: Acute Category: Medical Code(s): K92.2 - Gastrointestinal hemorrhage, unspecified (2) Iron deficiency anemia: Status: Acute Qualifiers: Iron deficiency anemia type: unspecified iron deficiency Qualified Code(s): D50.9 - Iron deficiency anemia, unspecified Category: Medical Code(s): D50.9 - Iron deficiency anemia, unspecified (3) Acute hypoxic respiratory failure: Status: Acute Category: Medical Code(s): J96.01 - Acute respiratory failure with hypoxia (4) COPD exacerbation: Status: Acute Category: Medical Code(s): J44.1 - Chronic obstructive pulmonary disease with (acute) exacerbation (5) Hematochezia: Status: Acute Category: Medical Code(s): K92.1 - Melena Plan Assessment: Acute GI bleed Normocytic normochromic anemia: Most likely iron deficiency anemia versus acute blood loss Hematochezia - Will place patient on clear liquid diet with no reds - Consult GI in a.m. - Will trend patient's hemoglobin hematocrit every 6 hours - Perform occult stool Acute hypoxic respiratory failure Possible COPD exacerbation -Patient has an acute need for oxygen while in the emergency room and she did have some expiratory wheezing on my exam - She may benefit from pulmonary functions test as an outpatient. She does have a extensive smoking history of 1 pack a day for greater than 50 years - 21 mg nicotine patch daily - DuoNebs every 6 hours - 100 mg doxycycline p.o. twice daily - 40 mg of prednisone p.o. daily - Supplemental oxygen maintain oxygen saturation greater 94% - Obtain procalcitonin - May benefit from pulmonology consultation - Patient may benefit from LABA at time of discharge Sigmoid mass measuring 2.3 cm - This was not seen on prior imaging or endoscopy - Will obtain CEA Plan: Admit patient to the MedSurg unit on telemetry Activity as tolerated SCDs to bilateral lower EXTR Supplemental oxygen maintain oxygen saturation greater 94% Vital signs every 4 hours Will swab for COVID CBC/BMP daily 5 mg [place] p.o. every 4 hours for moderate pain 10 mg of montelukast p.o. nightly 4 mg Zofran IV push every 8 hours for nausea balm 40 mg of Protonix IV push daily Full code I discussed this case with attending physician Dr. Styles and I look forward to more input
[2025-05-11] VITALS (8 sets, daily range): BP systolic 119–138; BP diastolic 62–71; PULSE 65–79; RESP 16; TEMP 36.4–37.1; O2SAT 94–97; BMI 23.9
[2025-05-11] MEDS: DOXYCYCLINE HYCL 100 MG TABLET PO ×2 (00:14→11:07)
[2025-05-11] MEDS: IPRATROPIUM/ALBUTEROL 3 ML NEB IH ×3 (00:23→11:06)
[2025-05-11 00:27] LABS: Coronavirus 19, PCR Not Detected (NotDetected); Influenza A, PCR Not Detected (NotDetected); Influenza B, PCR Not Detected (NotDetected)
[2025-05-11 01:39] LABS: Troponin I < 0.01 ng/ml (0.00-0.034)
--- NOTE | 2025-05-11 04:38 | PC.NURSE ---
Alert and oriented. No complaints since arriving to the floor. Audible wheezing noted, patient is using 2L NC. No rectal bleeding since coming to the floor. Ambulates to the restroom with standby assist. Call light in reach.
[2025-05-11 06:27] LABS: Hematocrit 30.6 % (37.0-47.0); Hemoglobin 9.5 g/dL (12.2-16.2); Immature Granulocytes % 0.3 %; Mean Corpuscular HGB Conc 31.0 g/dL (31.8-35.4); Mean Corpuscular Hemoglobin 28.5 pg (27.0-31.2); Mean Corpuscular Volume 91.9 fl (81-99); Nucleated Red Blood Cells % 0 %; Platelet Count 384 K/mm3 (142-424); Red Blood Count 3.33 M/mm3 (4.20-5.40); Red Cell Distribution Width-SD 58.9 fL; White Blood Count 7.9 K/mm3 (4.8-10.8)
[2025-05-11 06:52] LABS: Anion Gap 12.5 mEq/L (5-15); Blood Urea Nitrogen 17 mg/dl (7-17); Calcium 8.9 mg/dl (8.4-10.2); Carbon Dioxide 23 mmol/L (22.0-30.0); Chloride 108 mmol/L (98-107); Creatinine Clearance Estimated 54 mL/min (50-200); Creatinine,Serum 0.80 mg/dl (0.52-1.04); Estimated Glomerular Filt Rate 71 ml/min (>60); GFR (African American) 86 ML/MIN (>60); Glucose 72 mg/dl (74-100); Potassium 3.5 mmoL/L (3.5-5.1); Sodium 140 mmol/L (136-145)
[2025-05-11 07:06] LABS: Procalcitonin 0.054 ng/mL (0.0-2.0)
--- NOTE | 2025-05-11 07:35 | HMH.PHAINT1 ---
Pharmacy Intervention Comments: Home medication list verified using list from outpatient pharmacy
--- NOTE | 2025-05-11 08:17 | HMH.PHAAMS2 ---
- Antimicrobial Stewardship Review culture & sensitivity review Stewardship interventions: culture & sensitivity review, reviewed - no change Comments: ON DOXYCYCLINE PO FOR RESP INFECTION (SEPERATE FROM GI BLEED ADMISSION), NO CULTURES AVAILABLE
[2025-05-11 09:30] LABS: NT Pro Brain Natriuretic Pep. 552 pg/mL (0-125)
--- NOTE | 2025-05-11 09:35 | P.DS_ITS ---
General Admission date:: 05/10/25 Discharge date: 05/11/25 HPI HPI HPI: This is a 70-year-old female who is known to our service line and has a past medical history significant for diverticulosis/diverticulitis, colitis, CVA (currently on DAPT therapy), headaches, vitamin B2 deficiency, migraine headaches, hyperlipidemia, and hypertension who presents with a chief complaint of shortness of air and bright red blood per rectum. Due to patient's symptoms, she presented to the emergency room for evaluation. While in the emergency room, CT scan of the abdomen pelvis revealed persistent eccentric wall thickening of the sigmoid colon with adjacent 2.5 cm speculated masslike area of soft tissue attenuation immediately adjacent to the sigmoid. Patient recently underwent colonoscopy by Dr. Humphries and she was noted to have diverticulosis. CT scan of the chest was negative for any acute intrathoracic or cardiopulmonary process. Patient did have a repeat hemoglobin that was decreased from the i nitial value while in the emergency room, so patient has been admitted by medicine for further management. During my evaluation of the patient, patient states that she has been experiencing upper respiratory tract infection symptoms since last week. She reports today she started having increased sinus pressure. Moreover, patient voices having shortness of breath with exertion. She required additional oxygen while in emergency room and is currently independent of oxygen at home. She reports that her shortness of air got worse last night. Overall, patient mentions having 4 episodes of bright red blood per rectum. She was recently admitted for diverticulosis/diverticulitis and given IV administration of antibiotics. She was encouraged to hold her dual antiplatelet therapy for 5 days-patient did follow directions and she is currently taking her dual antiplatelet therapy as prescribed. Review of CT scan of the abdomen pelvis on previous admission did not reveal any masslike structures nor did GI specialist speak of any masslike structures with direct visualization of the colon. Patient also mention having a nonfocal headache. She is currently denying any chest pain, lightheadedness, dizziness, fever, chills, rigors, PND, orthopnea, swelling in lower extremities, nausea, vomiting, or diarrhea. Additional pertinent vitals obtained include a white blood cell count of 3.76, hemoglobin 9.6, hematocrit 30.4, platelet count of 464, INR of 1.15, BUN of 18, and blood glucose of 72. Hospital Course Hospital Course Hospital Course: Ms. Heredia is a 70-year-old female who was admitted from the emergency department for bright red bleeding per rectum and shortness of breath. She has a primary medical history of hyperlipidemia, hypertension, previous GI bleed, and stroke. Patient was admitted to the medical surgical floor for management shortness of breath and BRBPR. Dr. Damon was consulted for further recommendations. Plan of care is was as follows: #Bright red bleeding per rectum #Acute on chronic normocytic anemia ?Workup in the emergency department was significant for mild anemia, hemoglobin 10.9. This appears to be close to patient baseline. No leukocytosis, WBC 9.6. Normal kidney function, negative troponin. VBG reassuring with no evidence of respiratory acidosis or hypercapnia. No electrolyte disturbances. CT PE shows no PE or acute findings. Chest x-ray negative. CT of abdomen/pelvis performed shows persistent eccentric wall thickening of the sigmoid colon with adjacent 2.5 cm spiculated masslike area of soft tissue. Differential diagnosis include scar tissue, infection, inflammation, or malignancy. Patient had a colonoscopy approximately 2 months ago which showed sigmoid inflammation but no masslike area. Discussed these findings with Dr. Damon who feels the patient has had a another diverticulum hemorrhage. Patient had abdomen/pelvis CT in March 2025 which did not show any masslike area. It is unlikely that patient would develop a 2.5 cm malignant mass in such a short amount of time. Repeat imaging should be obtained in approximately 3 months for further evaluation. ?Patient denies any bleeding per rectum during admission. Has had 1 bowel movement. Patient denies any rectal pain, nausea, vomiting, diarrhea, or abdominal pain. She is also hemodynamically stable. Occult stool positive. ? Patient states she has been taking ibuprofen for caffeine headaches. Advised to discontinue and use Tylenol instead. Also advised to decrease caffeine intake. ?Currently patient is on DAPT therapy for prior CVA in June 2024. Patient states she was placed on Plavix and aspirin at that time and her PCP has continued the medications. Per guidelines I believe it is appropriate to reduce therapy to monotherapy, aspirin 81 mg daily. Patient is agreeable. #History of CVA ? Patient states she has a history of stroke last year, on DAPT therapy (Plavix and aspirin). Will decrease regimen to monotherapy, aspirin 81 mg daily. ? Resume propranolol 80 mg daily. #COPD exacerbation #Acute hypoxic respiratory failure ? Patient was found to be hypoxic upon arrival to the emergency department, O2 saturation mid to upper 80s. Patient was placed on 2 L O2 and oxygen saturation increased to greater than 90%. Patient does not baseline where oxygen at home. Patient does have an extensive smoking history, at least 1 pack/day for the past 50 years. Patient does not have a current diagnosis of COPD and does not take medication for COPD or use inhalers. ? Patient receiving DuoNebs during admission, very slight expiratory wheezing noted on exam. BNP slightly elevated at 552. Patient takes Lasix 20 mg daily, increased dose to 40 mg during admission. Echo shows normal biventricular systolic function without diastolic dysfunction. Patient was started on prednisone 40 mg daily and doxycycline 100 mg twice daily. Clinically improved during hospital course. ? Discharged with Anora Ellipta inhaler for daily use. Will need PFTs outpatient. Follow-up with PCP for further evaluation and management. Total time spent on discharge: 33 minutes on chart review, counseling, d ocumentation, and direct care with patient. Exam Data for Last 24 hours Vital signs and Labs for Last 24 Hours: Temp Pulse Resp BP Pulse Ox O2 Del Method O2 Flow Rate 97.6 F 70 16 127/71 96 Nasal Cannula 2 05/11/25 08:00 05/11/25 08:00 05/11/25 08:00 05/11/25 08:00 05/11/25 08:00 05/11/25 08:03 05/11/25 08:03 Laboratory Results - last 24 hr 05/10/25 18:30: WBC 9.6, RBC 3.76 L, Hgb 10.9 L, Hct 34.7 L, MCV 92.3, MCH 29.0, MCHC 31.4 L, RDW 17.6 H, Plt Count 464 H, MPV 10.7 H, Neut % (Auto) 68.4, Lymph % (Auto) 19.8, [place] % (Auto) 8.7, Eos % (Auto) 1.9, Baso % (Auto) 1.1, Neut # (Auto) 6.6, Lymph # (Auto) 1.9, [place] # (Auto) 0.8, Eos # (Auto) 0.2, Baso # (Auto) 0.1, PT 10.9, INR 0.98, APTT 20.8 L, D-Dimer 1.15 H, Sodium 138, Potassium 4.5, Chloride 107, Carbon Dioxide 22, Anion Gap 13.5, BUN 18 H, Creatinine 0.80, Estimated Creat Clear 52, Estimated GFR 71, Est GFR ( Amer) 86, Glucose 72 L, Calcium 9.2, Magnesium 2.2, Total Bilirubin 0.7, AST 23, ALT 13, Alkaline Phosphatase 103, Troponin I < 0.01, Total Protein 6.9, Albumin 4.1, Globulin 2.8, Albumin/Globulin Ratio 1.5, Lipase 60 05/10/25 19:06: VBG pH 7.39, VBG pCO2 36.2, VBG pO2 81.6 H, VBG HCO3 21.6 L, VBG Total CO2 22.7 L, VBG O2 Saturation 96.5 H, VBG Base Excess -3.3 L, VBG Lactic Acid 1.5 05/10/25 22:43: Hgb 9.6 L D, Hct 30.4 L 05/11/25 00:05: SARS-CoV-2 (PCR) Not detected, Influenza Type A (PCR) Not detected, Influenza Type B (PCR) Not detected, RSV (PCR) Not detected, Rhinovirus (PCR) Not detected 05/11/25 01:05: Troponin I < 0.01 05/11/25 05:55: WBC 7.9, RBC 3.33 L, Hgb 9.5 L, Hct 30.6 L, MCV 91.9, MCH 28.5, MCHC 31.0 L, RDW 17.5, Plt Count 384, MPV 10.3, Neut % (Auto) 67.4, Lymph % (Auto) 20.5, [place] % (Auto) 8.6, Eos % (Auto) 2.2, Baso % (Auto) 1.0, Neut # (Auto) 5.3, Lymph # (Auto) 1.6, [place] # (Auto) 0.7, Eos # (Auto) 0.2, Baso # (Auto) 0.1, Sodium 140, Potassium 3.5 D, Chloride 108 H, Carbon Dioxide 23, Anion Gap 12.5, BUN 17, Creatinine 0.80, Estimated Creat Clear 54, Estimated GFR 71, Est GFR ( Amer) 86, Glucose 72 L, Calcium 8.9, NT-Pro-B Natriuret Pep 552 H, Procalcitonin 0.054 I & O for Last 24 hours: Intake & Output 05/08/25 05/09/25 05/10/25 05/11/25 23:59 23:59 23:59 23:59 Intake Total 100 / 100 Output Total 200 / 200 Balance -100 / -100 Weight 63.503 kg 65.091 kg Constitutional Constitutional: no acute distress, chronically ill appearing and cooperative *Routine HEENT Exam Head: Present normocephalic Eye: Present EOMI ENT: Present mucous membranes moist *Routine Neck Exam Neck: Present supple and full ROM; Absent JVD *Routine Respiratory Exam Respiratory: Present normal respiratory effort, able to speak in complete sentences and symmetric chest movement; Absent wheezes or crackles *Routine Cardiovascular Exam Cardiovascular: Present RRR; Absent murmur *Routine Abdominal Exam Abdominal: Present soft and normoactive bowel sounds; Absent tenderness or distended *Routine Extremities Exam Extremities: Present full ROM; Absent edema *Routine Skin Exam Skin: Present intact and dry; Absent rash *Routine Neurological Exam Neurological: Present alert, oriented X3 and normal speech Results Data Completed and Pending Labs on day of discharge: Labs from last 24 hours 05/11/25 05/11/25 05/11/25 05:55 01:05 00:05 WBC 7.9 RBC 3.33 L Hgb 9.5 L Hct 30.6 L MCV 91.9 MCH 28.5 MCHC 31.0 L RDW 17.5 Plt Count 384 MPV 10.3 Neut % (Auto) 67.4 Lymph % (Auto) 20.5 [place] % (Auto) 8.6 Eos % (Auto) 2.2 Baso % (Auto) 1.0 Neut # (Auto) 5.3 Lymph # (Auto) 1.6 [place] # (Auto) 0.7 Eos # (Auto) 0.2 Baso # (Auto) 0.1 PT INR APTT D-Dimer VBG pH VBG pCO2 VBG pO2 VBG HCO3 VBG Total CO2 VBG O2 Saturation VBG Base Excess VBG Lactic Acid Sodium 140 Potassium 3.5 D Chloride 108 H Carbon Dioxide 23 Anion Gap 12.5 BUN 17 Creatinine 0.80 Estimated Creat Clear 54 Estimated GFR 71 Est GFR ( Amer) 86 Glucose 72 L Calcium 8.9 Magnesium Total Bilirubin AST ALT Alkaline Phosphatase Troponin I < 0.01 NT-Pro-B Natriuret Pep 552 H Total Protein Albumin Globulin Albumin/Globulin Ratio Lipase Procalcitonin 0.054 SARS-CoV-2 (PCR) Not detected Influenza Type A (PCR) Not detected Influenza Type B (PCR) Not detected RSV (PCR) Not detected Rhinovirus (PCR) Not detected 05/10/25 05/10/25 05/10/25 22:43 19:06 18:30 WBC 9.6 RBC 3.76 L Hgb 9.6 L D 10.9 L Hct 30.4 L 34.7 L MCV 92.3 MCH 29.0 MCHC 31.4 L RDW 17.6 H Plt Count 464 H MPV 10.7 H Neut % (Auto) 68.4 Lymph % (Auto) 19.8 [place] % (Auto) 8.7 Eos % (Auto) 1.9 Baso % (Auto) 1.1 Neut # (Auto) 6.6 Lymph # (Auto) 1.9 [place] # (Auto) 0.8 Eos # (Auto) 0.2 Baso # (Auto) 0.1 PT 10.9 INR 0.98 APTT 20.8 L D-Dimer 1.15 H VBG pH 7.39 VBG pCO2 36.2 VBG pO2 81.6 H VBG HCO3 21.6 L VBG Total CO2 22.7 L VBG O2 Saturation 96.5 H VBG Base Excess -3.3 L VBG Lactic Acid 1.5 Sodium 138 Potassium 4.5 Chloride 107 Carbon Dioxide 22 Anion Gap 13.5 BUN 18 H Creatinine 0.80 Estimated Creat Clear 52 Estimated GFR 71 Est GFR ( Amer) 86 Glucose 72 L Calcium 9.2 Magnesium 2.2 Total Bilirubin 0.7 AST 23 ALT 13 Alkaline Phosphatase 103 Troponin I < 0.01 NT-Pro-B Natriuret Pep Total Protein 6.9 Albumin 4.1 Globulin 2.8 Albumin/Globulin Ratio 1.5 Lipase 60 Procalcitonin SARS-CoV-2 (PCR) Influenza Type A (PCR) Influenza Type B (PCR) RSV (PCR) Rhinovirus (PCR) DS: Diagnosis Discharge Diagnosis (1) Acute GI bleeding: Status: Acute Code(s): K92.2 - Gastrointestinal hemorrhage, unspecified (2) Iron deficiency anemia: Status: Acute Code(s): D50.9 - Iron deficiency anemia, unspecified Qualifiers: Iron deficiency anemia type: unspecified iron deficiency Qualified Code(s): D50.9 - Iron deficiency anemia, unspecified (3) Acute hypoxic respiratory failure: Status: Acute Code(s): J96.01 - Acute respiratory failure with hypoxia (4) COPD exacerbation: Status: Acute Code(s): J44.1 - Chronic obstructive pulmonary disease with (acute) exacerbation (5) Hematochezia: Status: Acute Code(s): K92.1 - Melena Meds Home Medications and Allergies Home Medications ?Medication ?Instructions ?Recorded ?Confirmed ?Type aspirin 81 mg chewable tablet 81 mg PO DAILY 03/14/25 05/17/25 History (Children's Aspirin) furosemide 20 mg tablet 20 mg PO DAILY 30 days #30 t abs 04/25/25 05/17/25 Rx propranolol 80 mg capsule,24 80 mg PO DAILY 05/11/25 1 History hr,extended release albuterol 90 mcg-budesonide 80 2 inh inhalation TID HI N shortness 05/17/25 05/17/25 Rx mcg/actuation HFA aerosol inhaler of breath or wheezin g #10.7 grams (Airsupra) New Prescriptions to Start Prescriptions: Allergies Allergy/AdvReac Type Severity Reaction Status Date / Time umeclidinium (From Anoro Allergy Severe Chest Pain Verified 05/17/25 10:59 Ellipta) vilanterol (From Anoro Allergy Severe Chest Pain Verified 05/17/25 10:59 Ellipta) miconazole (From MONISTAT 7) Allergy Mild Unknown Verified 03/29/25 11:54 allergy reaction Discharge Plan Disposition Patient Disposition: Home, Self-Care Condition: Fair Follow up Plan Follow up with: Yoni Damon II, MD [Staff Physician, Gastroenterology] - 1 week Michael Simeon MD [Primary Care Provider, Internal Medicine] - 05/17/25 9:30 am Prescriptions/Medication Reconciliation: Continued furosemide 20 mg tablet 20 mg PO DAILY 30 Days Qty: 30 1RF aspirin [Children's Aspirin] 81 mg tablet,chewable 81 mg PO DAILY propranolol 80 mg capsule,extended release 24 hr 80 mg PO DAILY Discontinued clopidogrel 75 mg tablet 75 mg PO DAILY 90 Days Qty: 90 2RF No Action Airsupra 90-80 mcg/actuation HFA aerosol inhaler 2 inh inhalation TID PRN (Reason: shortness of breath or wheezing) Qty: 10.7 3RF Problem Reconciliation Problems Reviewed?: Yes Patient Discharge Instructions ACTIVITY: Continue current activity DIET: continue same diet Additional Instructions: Please take either only aspirin or Plavix until follow-up with GI. Patient Instructions: DI for Chronic Obstructive Pulmonary Disease, DI for Gastrointestinal Bleeding, Stop Light COPD Print Language: Chinese Providers Primary Care Provider: Michael Simeon Admit Provider: Julien Styles Attending Provider: Julien Styles
--- NOTE | 2025-05-11 09:37 | CA_ITS ---
APPROVED REPORT EXAM: Comprehensive 2D, Doppler, and color-flow Echocardiogram [employer] Architect: TIERNEY Gunderson, RVS Ht: 5 ft 5 in Wt: 143lbs BSA: 1.72 BP: 127/71 mmHg Indications: SOA, CVA, GI bleed, Smoker, HTN, HLD Echo Enhancing Agent Indication: No IV access Comments: Limited acoustic windows 2D Dimensions IVSd 0.68 cm LVEF (Visual) 79.10 % PWd 0.72 cm LVDd 4.99 cm LVDs 2.60 cm Left Atrium 2.55 cm M-Mode Dimensions LA Diam 3.09 cm (1.9-4.0) EPSs 0.67 cm LV Diastology E Decel Time 293 (160-240 msec) E/A Ratio 0.55 MED A' 7.60 cm/s LAT A' 11.10 cm/s Aortic Valve ARMAAN Index 1.92 cm2/m2 AoV Peak Steve. 126.0 (50-130 cm/s) AO Peak GR. 6.30 mmHg AO Mean GR. 3.20 (<5 mmHg) AO VTI 22.2 (18-25 cm) ARMAAN (VTI) 3.38 (2.5-4.5 cm2) Mitral Valve MV A Velocity 105.0 (40-130 cm/s) E/A Ratio 0.55 Pulmonary Valve PV Peak Velocity 99.0 (50-150 cm/s) Left Ventricle The left ventricle is normal size. Left ventricular systolic function is normal. The left ventricular ejection fraction is within the normal range. There is increased left ventricular wall thickness. There is normal LV segmental wall motion. Transmitral Doppler flow pattern suggests impaired LV relaxation. LVEF is 60%. Right Ventricle The right ventricle is normal size. The right ventricular systolic function is normal. Atria The left atrium size is normal. The right atrium size is normal. There is no color Doppler evidence of interatrial shunt. Aortic Valve The aortic valve opens well. There is no hemodynamically significant aortic valvular stenosis. No aortic regurgitation is present. Mitral Valve The mitral valve is normal in structure. No evidence of mitral valve stenosis. Trace mitral regurgitation is present. Tricuspid Valve The tricuspid valve leaflets are thin and pliable. Trace tricuspid regurgitation. There is insufficient TR jet to estimate RVSP. Pulmonic Valve The pulmonary valve is grossly normal in structure. Trace pulmonic valve regurgitation is present. Great Vessels The aortic root is normal in size. IVC is normal in size and collapses >50% with inspiration. Pericardium There is no pericardial effusion. Conclusion Normal biventricular systolic function. No significant valvular stenosis or regurgitation. Electronically signed by : Kassandra Villalpando MD 05/16/2025 20:48:49
[2025-05-11] MEDS: FUROSEMIDE 20MG TABLET 20 MG PO (10:08)
[2025-05-11] MEDS: FUROSEMIDE 40MG/4ML VIAL 40 MG IV (10:08)
[2025-05-11 10:55] LABS: Occult Blood,Stool Positive (Negative)
[2025-05-11 12:13] LABS: Hematocrit 33.6 % (37.0-47.0); Hemoglobin 10.3 g/dL (12.2-16.2)
[2025-05-11 12:18] LABS: C-Reactive Protein 12.7 mg/L (0-4)
[2025-05-11 14:22] LABS: Hematocrit 34.9 % (37.0-47.0); Hemoglobin 10.7 g/dL (12.2-16.2); Immature Granulocytes % 0.4 %; Mean Corpuscular HGB Conc 30.7 g/dL (31.8-35.4); Mean Corpuscular Hemoglobin 28.8 pg (27.0-31.2); Mean Corpuscular Volume 93.8 fl (81-99); Nucleated Red Blood Cells % 0 %; Platelet Count 427 K/mm3 (142-424); Red Blood Count 3.72 M/mm3 (4.20-5.40); Red Cell Distribution Width-SD 60.9 fL; White Blood Count 11.6 K/mm3 (4.8-10.8)
--- NOTE | 2025-05-11 15:02 | PC.NURSE ---
assumed care of pt at 1500 from BEATRIZ RYAN
[2025-05-11] MEDS: UMECLIDINIUM/VILANTEROL 62.5/25MCG INHALER 1 PUFF IH (16:23)
[2025-05-12 10:39] LABS: CEA 4.9 ng/mL (0.0-4.7)
--- NOTE | 2025-05-14 10:32 | SW/DCPLANNER ---
Spoke with patient on the phone. Patient stated that she is doing good. Patient stated that she is aware of her upcoming appointment. Patient stated that she was not sure if she had a new medicine or not. Patient stated that she has no concerns or questions at this time. Anna Yanez
== END 2025-05-11 17:40 | disposition home or self-care (01) ==
LOC: ER 19:15 → 2ND 23:16
PROVIDERS: Nurse Practitioner; Nurse Practitioner Family; Admitting Provider Student in an Organized Health Care Education/Training Program; Emergency Provider Student in an Organized Health Care Education/Training Program; PCP Family Medicine; Visit Provider Student in an Organized Health Care Education/Training Program
DX: K62.5 Hemorrhage of anus and rectum (principal); D50.9 Iron deficiency anemia, unspecified; J96.01 Acute respiratory failure with hypoxia; K63.89 Other specified diseases of intestine; J44.1 Chronic obstructive pulmonary disease with (acute) exacerbation; E78.5 Hyperlipidemia, unspecified; K57.30 Diverticulosis of large intestine without perforation or abscess without bleeding; I10 Essential (primary) hypertension; F17.210 Nicotine dependence, cigarettes, uncomplicated; Z88.3 Allergy status to other anti-infective agents; Z88.8 Allergy status to other drugs, medicaments and biological substances; Z86.73 Personal history of transient ischemic attack (TIA), and cerebral infarction without residual deficits; Z79.899 Other long term (current) drug therapy
CPT/HCPCS: 36415; 71045; 71275; 74177; 80048; 80053; 82272; 82378; 82803; 83690; 83735; 83880; 84145; 84484; 85014; 85018; 85025; 85378; 85610; 85730; 86140; 87631; 93005; 93306; 94640; 96374; 96375; 99284; G0328; G0378; J1938; J2470; Q9967

== ENCOUNTER 2025-05-17 11:40 | Outpatient (CLI) | payer MEDICARE, MEDICAID, SELFPAY ==
[2025-05-17 19:28] LABS: Hematocrit 31.6 % (37.0-47.0); Hemoglobin 9.8 g/dL (12.2-16.2); Immature Granulocytes % 0.2 %; Mean Corpuscular HGB Conc 31.0 g/dL (31.8-35.4); Mean Corpuscular Hemoglobin 29.0 pg (27.0-31.2); Mean Corpuscular Volume 93.5 fl (81-99); Nucleated Red Blood Cells % 0 %; Platelet Count 429 K/mm3 (142-424); Red Blood Count 3.38 M/mm3 (4.20-5.40); Red Cell Distribution Width-SD 60.1 fL; White Blood Count 9.3 K/mm3 (4.8-10.8)
== END 2025-05-17 23:59 ==
LOC: LAB.DROPOF 05-21 12:19
PROVIDERS: PCP Nurse Practitioner Family; Visit Provider Nurse Practitioner Family
DX: K92.2 Gastrointestinal hemorrhage, unspecified (principal)
CPT/HCPCS: 85025

== ENCOUNTER 2025-05-22 19:59 | Outpatient (CLI) | payer MEDICARE, MEDICAID, SELFPAY ==
--- OUTSIDE RECORDS SUMMARY | 2025-05-22 20:04 | XMS_ITS | Clinical Summary ---
Author Organization [facility] Address [address] 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 No 07/12/2024 Utilities Answer Date Recorded In the past 12 months has [employer] gas, oil, or water [employer] threatened to shut off services in your [...] - Risk 60-74 years 1-dose series) 2015 [id number] Vaccine (2 - [place] risk series) 04/17/2021 [...] 5.8(H) <5.7 % 07/11/2024 12:40 AM EST [facility] Blood Venous blood specimen / Unknown Venipuncture / Unknown 07/10/2024 9:13 PM EST 07/10/2024 9:25 PM EST Narrative [facility] - 07/11/2024 12:40 AM EST HA1C Interpretive Data: Diagnosis of Diabetes: Diabetic > or = 6.5% Pre-diabetic 5.7 to 6.4% Non-diabetic < or = 5.6% Glycemic Targets for Type I and Type II Diabetics: Non- Adults <7.0% Adults <6.0% Children and Adolescents <7.5% Source: [place] [employer]. Standards of medical care in diabetes,2017. Diabetes Care.2017:40 (suppl 1):S1-S135. HbA1c assay performed by an ion-exchange chromatography method that is certified traceable to the DCCT. us Ramya Cope DO LAB BLOOD ORDERABLES Final Res ult [facility] [address] [place] [address] from Last 3 Months or Most Recently Relevant to Health Maintenance Insurance MEDICARE [place]ICAID-[place] Advance Directives * Full Code (Latest Code Status on File) Date Activated Date Inactivated Comments 07/10/2024 11:34 PM 07/12/2024 4:57 PM Question Answer Comments Patient has decision-making capacity? Yes Care Teams Dumpling Machine Operator Relationship Specialty Start Date End Date Michael Simeon MD PCP - General Family Medicine 07/10/24
[2025-05-22 20:16] LABS: Hematocrit 34.1 % (37.0-47.0); Hemoglobin 10.4 g/dL (12.2-16.2); Immature Granulocytes % 0.2 %; Mean Corpuscular HGB Conc 30.5 g/dL (31.8-35.4); Mean Corpuscular Hemoglobin 28.7 pg (27.0-31.2); Mean Corpuscular Volume 94.2 fl (81-99); Nucleated Red Blood Cells % 0 %; Platelet Count 510 K/mm3 (142-424); Red Blood Count 3.62 M/mm3 (4.20-5.40); Red Cell Distribution Width-SD 59.7 fL; White Blood Count 9.8 K/mm3 (4.8-10.8)
== END 2025-05-22 23:59 | disposition home or self-care (01) ==
LOC: LAB.DROPOF 20:02
PROVIDERS: PCP Nurse Practitioner Family; Visit Provider Nurse Practitioner Family
DX: K92.2 Gastrointestinal hemorrhage, unspecified (principal)
CPT/HCPCS: 85025